=== PATIENT | female | born 1940 | race Caucasian/White ===

== ENCOUNTER → 2016-11-06 | Outpatient (CLI) | payer BC ==
[~2016-11-06] MED LIST: ADVAIR; CALC-51; CMBIN; VITAMIN D; VITAMINS; ZOLOFT; [UNRECOGNIZED DRUG - OTHER]
[2016-11-06 11:10] LABS: BLOOD UREA NITROGEN 17 mg/dl (7-18); BUN/CREATININE RATIO 21.4 (10-20); CALCIUM 8.6 mg/dl (8.5-10.1); CARBON DIOXIDE 26 mmol/L (21-32); CHLORIDE 107 mmol/L (98-107); CHOLESTEROL 261 mg/dl (0-200); GLUCOSE 93 mg/dl (70-99); POTASSIUM 4.2 mmol/L (3.5-5.1); SODIUM 142 mmol/L (136-145); TRIGLYCERIDES 79 mg/dl (0-150); VERY LOW DENSITY LIPOPROT CALC 16 mg/dl
[2016-11-06 11:14] LABS: ALB/GLOB RATIO 1.1 (0.9-2); ALKALINE PHOSPHATASE 40 U/L (45-117); ALT/SGPT 22 U/L (12-78); AST/SGOT 16 U/L (15-37); CHOLESTEROL/HDL RATIO 2.5; HDL CHOLESTEROL 105 mg/dl; LDL CHOLESTEROL CALCULATED 140 mg/dl
== END | disposition home or self-care (01) ==
LOC: C.LABBC 08:29
PROVIDERS: ATTEND Internal Medicine
DX: E78.5 Hyperlipidemia, unspecified (principal)

== ENCOUNTER → 2017-03-26 | Outpatient (CLI) | payer BC ==
[2017-03-26 13:19] LABS: ALT/SGPT 19 U/L (12-78); BLOOD UREA NITROGEN 13 mg/dl (7-18); BUN/CREATININE RATIO 17.1 (10-20); CALCIUM 8.9 mg/dl (8.5-10.1); CARBON DIOXIDE 25 mmol/L (21-32); CHLORIDE 107 mmol/L (98-107); CHOLESTEROL 285 mg/dl (0-200); CREATININE 0.76 mg/dl (0.60-1.20); GLUCOSE 92 mg/dl (70-99); POTASSIUM 4.2 mmol/L (3.5-5.1); SODIUM 139 mmol/L (136-145); TRIGLYCERIDES 104 mg/dl (0-150); VERY LOW DENSITY LIPOPROT CALC 21 mg/dl
[2017-03-26 13:23] LABS: ALB/GLOB RATIO 1.1 (0.9-2); ALKALINE PHOSPHATASE 43 U/L (45-117); AST/SGOT 14 U/L (15-37); CHOLESTEROL/HDL RATIO 3.3; HDL CHOLESTEROL 86 mg/dl; LDL CHOLESTEROL CALCULATED 178 mg/dl
== END | disposition home or self-care (01) ==
LOC: C.LAB1850 11:19
PROVIDERS: ATTEND Internal Medicine
DX: E78.5 Hyperlipidemia, unspecified (principal); M81.0 Age-related osteoporosis without current pathological fracture

== ENCOUNTER → 2017-06-07 | Outpatient (CLI) | payer BC ==
--- NOTE | 2017-06-07 14:20 | MAMMOGRAPHY REPORT ---
BILATERAL DIGITAL SCREENING MAMMOGRAM WITH CAD: 06/07/2017 CLINICAL HISTORY: Routine screening. Patient has no complaints. TECHNIQUE: Current study was also evaluated with a Computer Aided Detection (CAD) system. Bilateral CC and MLO views were obtained. COMPARISON: Comparison is made to exams dated: 06/05/2016 mammogram, 06/01/2015 mammogram, 05/29/2014 [place] mogram, 03/17/2013 mammogram, 03/12/2012 mammogram, and 03/02/2011 mammogram - [facility] er. BREAST COMPOSITION: The tissue of both breasts is almost entirely fatty. FINDINGS: No suspicious masses, calcifications, or areas of architectural distortion are noted in ei ther breast. There has been no significant interval change compared to prior exams. IMPRESSION: ACR BI-RADS CATEGORY 1: NEGATIVE There is no mammographic evidence of malignancy. A 1 year screening mammogram is recommended. The pa tient will receive written notification of the results. Approximately 10% of breast cancers are not detected with mammography. A negative mammographic report should not delay biopsy if a clinically suggestive mass is present. Tammy Nguyen M.D. ah/:06/07/2017 12:08:14 Loader Machine: Lindy WARD,R, M, [facility] letter sent: Normal 1/2 BI-RADS Code: ACR BI-RADS Category 1: Negative
== END | disposition home or self-care (01) ==
LOC: C.MAMM 10:16
PROVIDERS: ATTEND Obstetrics & Gynecology
DX: Z12.31 Encounter for screening mammogram for malignant neoplasm of breast (principal)

== ENCOUNTER → 2017-10-04 | Outpatient (CLI) | payer BC ==
--- NOTE | 2017-10-04 11:25 | DIAGNOSTIC IMAGING REPORT ---
KUB CLINICAL HISTORY: R63.4 Abnormal weight lossR14.0 Abdominal [id number] COMPARISON STUDY: 2005 FINDINGS: There are moderate degenerative changes present within the lumbar spine. There is mild gaseous prominence of the transverse colon and splenic flexure. Granular opaque densities within the abdomen likely representing enteric contents. There are few nonspecific pelvic basin calcifications. There is moderate stool within the right colon. IMPRESSION: No conventional radiographic evidence of significant bowel obstruction. Electronically signed by: Hugo Church M.D. 10/04/2017 11:23 AM Dictated Date/Time: 10/04/2017 11:22 AM
[2017-10-04 12:20] LABS: BASO % 0.8 %; BASO ABS # 0.07 K/uL (0-0.2); EOS % 1.5 %; EOS ABS # 0.13 K/uL (0-0.5); HEMATOCRIT 43.3 % (37-47); HEMOGLOBIN 14.5 g/dL (12.0-16.0); IG# 0.01 K/uL (0.00-0.02); LYMPH % 29.4 %; LYMPH ABS # 2.47 K/uL (1.2-3.4); MEAN CELL VOLUME 93.9 fL (80-100); MEAN CORPUSCULAR HEMOGLOBIN 31.5 pg (25-34); MEAN CORPUSCULAR HGB CONC 33.5 g/dl (32-36); MEAN PLATELET VOLUME 9.9 fL (7.4-10.4); MONO % 10.4 %; MONO ABS # 0.87 K/uL (0.11-0.59); NEUT % 57.8 %; NEUT ABS # 4.85 K/uL (1.4-6.5); PLATELET COUNT 281 K/uL (130-400); RED CELL DISTRIBUTION WIDTH CV 14.6 % (11.5-14.5); RED CELL DISTRIBUTION WIDTH SD 49.6 fL (36.4-46.3)
[2017-10-04 12:46] LABS: ALBUMIN 3.5 gm/dl (3.4-5.0); ALT/SGPT 22 U/L (12-78); AST/SGOT 16 U/L (15-37); BLOOD UREA NITROGEN 14 mg/dl (7-18); CARBON DIOXIDE 30 mmol/L (21-32); CREATININE 0.78 mg/dl (0.60-1.20); GLUCOSE 94 mg/dl (70-99); POTASSIUM 3.7 mmol/L (3.5-5.1); SODIUM 141 mmol/L (136-145)
[2017-10-04 12:48] LABS: ALKALINE PHOSPHATASE 47 U/L (45-117); CHOLESTEROL 229 mg/dl (0-200); LDL CHOLESTEROL CALCULATED 113 mg/dl; TOTAL PROTEIN 6.7 gm/dl (6.4-8.2)
== END | disposition home or self-care (01) ==
LOC: C.RAD1850 10:44
PROVIDERS: ATTEND Internal Medicine
DX: R63.4 Abnormal weight loss (principal); R14.0 Abdominal distension (gaseous); E78.5 Hyperlipidemia, unspecified; M81.0 Age-related osteoporosis without current pathological fracture

== ENCOUNTER → 2017-10-11 | Outpatient (CLI) | payer BC ==
--- NOTE | 2017-10-11 14:08 | DIAGNOSTIC IMAGING REPORT ---
ABD/PELVIS IV AND ORAL CONT CT DOSE: 417.97 mGycm HISTORY: Pain. Nausea. ABN WEIGHT LOSS,CHANGE IN BOWEL HABITS TECHNIQUE: Multiaxial CT images of the abdomen and pelvis were performed following the use of intravenous and oral contrast. A dose lowering technique was utilized adhering to the principles of ALARA. COMPARISON STUDY: 03/17/2006 FINDINGS: Lung bases are clear. Liver is uniform throughout. There is an 8 mm hypodense nodule and/or cyst peripheral aspect right hepatic lobe. This is unchanged in the prior study and statistically suggestive small cyst. Gallbladder is negative for distention. There is hyperdense nodule involving the third portion of duodenal sweep and potentially represents a diverticulum. This measures 1.5 cm and is similar compared to the prior study. Kidneys negative for mass or hydronephrosis. Bowel pattern is remarkable for increased colonic material within the a sending and proximal to mid transverse colon. At the mid transverse colon there is a small ventral hernia containing a short segment loop of colon. This does not appear to be obstructing although fecal load distal to this level is slightly diminished. There is a small fat containing additional midline anterior abdominal wall hernia slightly superior to the umbilicus. This contains fat exclusively and is nonobstructing. The left-sided ostomy on the prior study is no longer present. Bladder is midline. There is no significant free fluid within the pelvic cul-de-sac. Small bowel pattern is nonobstructive. IMPRESSION: 1. Small ventral hernia immediately superior to the umbilicus containing fat exclusively. 2. Ventral hernia inferior to the umbilicus containing containing a short segment loop of colon. This is non and are only minimally obstructing with increased fecal load proximal to this site. 3. Remainder of the study is unremarkable. The above report was generated using voice recognition software. It may contain grammatical, syntax or spelling errors. Electronically signed by: Senthil Muñoz M.D. 10/11/2017 2:06 PM Dictated Date/Time: 10/11/2017 1:55 PM
== END | disposition home or self-care (01) ==
LOC: C.CTS 13:33
PROVIDERS: ATTEND Physician Assistant
DX: R63.4 Abnormal weight loss (principal); R19.4 Change in bowel habit

== ENCOUNTER 2017-12-13 10:44 | Observation (INO) | payer BC ==
--- NOTE | 2017-11-22 11:39 | PAT Medication Instructions ---
Service Date Nov 22, 2017. Current Home Medication List Albuterol Sulfate (Proair Respiclick), 1-2 PUFFS INH Q4-6H Atorvastatin (Lipitor), 5 MG PO HS Calcium Carbonate-Vitamin D (Calcium + D), 1 TAB PO QAM Cyanocobalamin (Vitamin B12 100 Mcg), 100 MCG PO QAM Fluticasone Prop/Salmeterol (Advair Diskus 500-50 Mcg/Dose), 1 PUFF INH Q12H Ibandronate Sodium (Boniva), 150 MG PO MONTHLY Multivitamin (Multivitamin), 1 TAB PO QAM Holloway-3 Fatty Acids (Fish Oil), 2 TAB PO QAM Ranitidine (Zantac), 150 MG PO HS Sertraline (Zoloft), 150 MG PO QAM Medication Instructions For Your Scheduled Surgery -Continue as directed: Ibandronate Sodium (Boniva), 150 MG PO MONTHLY - Hold the following medications 2 weeks prior to surgery: Holloway-3 Fatty Acids (Fish Oil), 2 TAB PO QAM - Hold the following medications the morning of surgery: Calcium Carbonate-Vitamin D (Calcium + D), 1 TAB PO QAM Cyanocobalamin (Vitamin B12 100 Mcg), 100 MCG PO QAM Multivitamin (Multivitamin), 1 TAB PO QAM - Take the following medications the morning of surgery with a sip of water: Albuterol Sulfate (Proair Respiclick), 1-2 PUFFS INH Q4-6H (if needed, bring it with you to the hospital) Fluticasone Prop/Salmeterol (Advair Diskus 500-50 Mcg/Dose), 1 PUFF INH Q12H Sertraline (Zoloft), 150 MG PO QAM - Take the following medications as scheduled the night before surgery: Albuterol Sulfate (Proair Respiclick), 1-2 PUFFS INH Q4-6H (if needed) Atorvastatin (Lipitor), 5 MG PO HS Fluticasone Prop/Salmeterol (Advair Diskus 500-50 Mcg/Dose), 1 PUFF INH Q12H Ranitidine (Zantac), 150 MG PO HS If you have any questions please call us at [phone] or [phone] or [phone]
[2017-11-22 13:23] LABS: BASO % 1.1 %; BASO ABS # 0.08 K/uL (0-0.2); EOS % 2.7 %; HEMATOCRIT 42.2 % (37-47); HEMOGLOBIN 14.4 g/dL (12.0-16.0); IG# 0.02 K/uL (0.00-0.02); LYMPH % 28.4 %; LYMPH ABS # 2.13 K/uL (1.2-3.4); MEAN CELL VOLUME 93.4 fL (80-100); MEAN CORPUSCULAR HEMOGLOBIN 31.9 pg (25-34); MEAN CORPUSCULAR HGB CONC 34.1 g/dl (32-36); MEAN PLATELET VOLUME 9.5 fL (7.4-10.4); MONO % 12.3 %; MONO ABS # 0.92 K/uL (0.11-0.59); NEUT % 55.2 %; NEUT ABS # 4.16 K/uL (1.4-6.5); PLATELET COUNT 274 K/uL (130-400); RED CELL DISTRIBUTION WIDTH CV 14.3 % (11.5-14.5); RED CELL DISTRIBUTION WIDTH SD 49.1 fL (36.4-46.3); WHITE BLOOD COUNT 7.51 K/uL (4.8-10.8)
[2017-11-22 13:35] LABS: CREATININE 0.71 mg/dl (0.60-1.20); POTASSIUM 4.1 mmol/L (3.5-5.1)
[~2017-12-13] VITALS: Ht 152.4 cm; Wt 56.1 kg
[2017-12-13] VITALS (7 sets, daily range): BP systolic 114–141; BP diastolic 64–73; PULSE 57–78; TEMP 36.4–36.8; O2SAT 91–97; Ht 152.4 cm; Wt 56.1 kg
[2017-12-13] MEDS: LACTATED RINGER'S 1000ML 1,000 ML IV SCH (03:04)
[~2017-12-13 10:44] MED LIST changes: -ADVAIR; +ADVIN50050 INH; +ALBU18002 INH; +ATOR10TA82 PO; +ATROPINE SULFATE 0.1 MG/ML 5ML SYR IV PRN; -CALC-51; +CALC600T9 PO; +CEFAZOLIN 2000MG IV PUSH 15 ML IV SCH; -CMBIN; +CYAN100T6 PO; +EpHEDrine SULFATE INJ 50 MG/ML AMP IV PRN; +FENTANYL CITRATE INJ 50 MCG/1 ML 2 ML VIAL IV PRN; +HYDROmorphone INJ 1 MG/ML SYR IV PRN; +IBAN150T PO; +LACTATED RINGER'S 1000ML 1,000 ML IV SCH; +MULT-506 PO; +OMEGCAP2 PO; +ONDANSETRON INJ 2 MG/ML 2 ML VIAL IV PRN; +PHENYLEPHRINE 100MCG/ML 5ML SYR IV PRN; +RANI150T85 PO; +SERT-234 PO; -VITAMIN D; -VITAMINS; -ZOLOFT; -[UNRECOGNIZED DRUG - OTHER]
[2017-12-13] MEDS ORDERED: DEXAMETHASONE SOD INJ 4 MG/ML VIAL ONE (11:03)
[2017-12-13] MEDS ORDERED: LIDOCAINE HCL 2% 2 ML VIAL (20MG/ML) ONE (11:03)
[2017-12-13] MEDS ORDERED: FENTANYL CITRATE INJ 50 MCG/1 ML 2 ML VIAL ONE ×3 (11:03→14:06)
[2017-12-13] MEDS ORDERED: ONDANSETRON INJ 2 MG/ML 2 ML VIAL ONE (11:03)
[2017-12-13] MEDS ORDERED: PROPOFOL IV EMULSION 10 MG/ML 20 ML VIAL IV ONE (11:03)
--- NOTE | 2017-12-13 11:51 | History & Physical Bridge Note ---
H&P Re-Evaluation Bridge Note: I have examined the patient, reviewed the History & Physical and in the interval since the performance of the History & Physical I have noted the following changes of clinical significance: No changes noted
[2017-12-13] MEDS ORDERED: BUPIVACAINE/EPINEPHRINE 0.5% MPF 1:200,000 30 ML VIAL ONE (12:11)
[2017-12-13] MEDS ORDERED: SUCCINYLCHOLINE 100MG/5ML SYR IV ONE (12:44)
[2017-12-13] MEDS ORDERED: ROCURONIUM BROMIDE 10 MG/ML 5 ML VIAL IV ONE (12:44)
[2017-12-13] MEDS ORDERED: GLYCOPYRROLATE INJ 0.2 MG/ML VIAL ONE (12:52)
[2017-12-13] MEDS ORDERED: NEOSTIGMINE METHYLSULFATE 5 MG/5 ML SYR ONE (12:52)
[2017-12-13] MEDS ORDERED: EpHEDrine SULFATE INJ 50 MG/ML AMP ONE (13:28)
[2017-12-13] MEDS ORDERED: ARISTA ABSORBABLE HEMOSTAT 3GM TOP ONE (13:49)
--- NOTE | 2017-12-13 13:52 | [facility] Post Operative Brief Note ---
Immediate Operative Summary Operative Date Dec 13, 2017. Pre-Operative Diagnosis Ventral hernias Post-Operative Diagnosis Same as preop ( times 3) plus adhesions to small bowel Procedure(s) Performed Open Incisional Hernia Repair x3 with Mesh, enterolysis Surgeon Dr. Scruggs Mediation Commissioner Surgeon(s) Melinda Armstrong PA-C Estimated Blood Loss 20 cc Findings Consistent with Post-Op Diagnosis Specimens none, as per surgeon Anesthesia Type General
[2017-12-13] MEDS ORDERED: ALBUTEROL HFA 8 GM INHALER INH PRN (14:00)
[2017-12-13] MEDS ORDERED: MoRPHine SULFATE 2 MG/ML CARP IV PRN (14:00)
[2017-12-13] MEDS ORDERED: HYDR-5688 PO (14:05)
[2017-12-13] MEDS ORDERED: HYDROmorphone INJ 1 MG/ML SYR ONE ×2 (14:06→14:45)
--- NOTE | 2017-12-13 14:06 | Discharge Instructions ---
Discharge Instructions Date of Service Dec 13, 2017. Admission Reason for Admission: Incisional Hernia Discharge Discharge Diagnosis / Problem: hernia repair Discharge Goals Goal(s): Decrease discomfort Activity Recommendations Activity Limitations: as noted below Lifting Limitations: no more than 10 pounds Driving or Machine Use: resume 3 days after discharge . Instructions / Follow-Up Instructions / Follow-Up Dr. Scruggs in 1-2 weeks as planned, call [phone] if you have any questions Current Hospital Diet Patient's current hospital diet: Clear Liquid Diet Discharge Diet Recommended Diet: Regular Diet Procedures Procedures Performed: Open Incisional Hernia Repair x3 with Mesh, enterolysis Pending Studies Studies pending at discharge: no Laboratory Results Lipid Panel Test 10/04/17 11:00 Range/Units Triglycerides Level 108 0-150 mg/dl Cholesterol Level 229 H 0-200 mg/dl HDL Cholesterol 94 mg/dl Cholesterol/HDL Ratio 2.4 LDL Cholesterol, Calculated 113 mg/dl Medical Emergencies . Who to Call and When: Medical Emergencies: If at any time you feel your situation is an emergency, please call 911 immediately. . Non-Emergent Contact Non-Emergency issues call your: Surgeon Call Non-Emergent contact if: you have a fever, temperature is above 101.5, your pain is not controlled, wound has increased redness, you have any medication questions . "Provider Documentation" section prepared by Merritt Michael. .
--- NOTE | 2017-12-13 14:10 | [facility] Operative Report ---
Operative Report Operative Date Dec 13, 2017. Pre-Operative Diagnosis Ventral hernias Post-Operative Diagnosis Same as preop ( times 3) plus adhesions to small bowel Procedure(s) Performed Open Incisional Hernia Repair x3 with Mesh, enterolysis Surgeon Dr. Scruggs Creel Hand Surgeon(s) Melinda Armstrong PA-C Estimated Blood Loss 20 cc Specimens none, as per surgeon Anesthesia Type General Description of Procedure After informed consent was obtained the patient was taken to the operating room and placed in a supine position. After successful placement of the laryngeal mask airway the abdomen was sterilely prepped and draped in usual fashion. The patient had 2 known hernias one supra-umbilical and one infraumbilical. We began with the supraumbilical hernia. We made an incision through her prior midline with a 15 blade scalpel and carried this down through the soft tissue using electrocautery. We immediately encountered a hernia sac which we excised. This exposed a several centimeter hernia defect with some omental incarceration. We grabbed the edges of the fashion elevated them and took down in the underlying adhesions using sharp scissor lysis and small amounts of electrocautery. There was an additional hernia between this hernia and the umbilicus. We decided to connect these 2 hernias by dividing the fascial bridge. We then skeletonized the fascial edges in 360. We then used a #1 Ethibond in interrupted [id number] fashion to primarily close the defect. We did not have to do a component separation as there was plenty of laxity in the abdominal wall. Once we had it primarily closed we then used a piece of pro -oral and maxillofacial surgery resident mesh as an onlay. It overlapped the defect and several centimeters in all directions. We secured it to underlying fascia using 0 Ethibond in simple interrupted fashion. The wound was then thoroughly irrigated. Any small bleeding points were controlled using electrocautery. We then used Kassandra powder on all the raw surfaces to help prevent seroma and hematoma formation. We then closed the defect in multiple layers using 2-0 Vicryl for the deep layers 3-0 Vicryl for mid layers and 4-0 Monocryl for the skin. Sterile OpSite dressing was applied. We used a very similar technique for the infraumbilical hernia. We made an incision through her old scar line and carried down through the soft tissue using electrocautery. This was a smaller defect however there was a knuckle of small bowel sticking through into the soft tissue. We able to free this up using traction countertraction and scissor lysis. Eventually we were able to reduce the small bowel back down into the abdominal cavity. Again we primarily closed the defect after skeletonizing it. We closed it with #1 Ethibond in simple interrupted fashion. Again we used Progrip as an onlay using 0 Ethibond to secure it to underlying fascia. We irrigated and used Kassandra powder followed by 2-0 Vicryl closure 3-0 Vicryl closure and 4-0 Monocryl for the subcuticular closure. Sterile OpSite dressing was applied. The patient was then extubated and transferred to recovery in stable condition. My physician's promotions assistant was present through the entire case. He helped with prepping the patient retraction throughout the case for exposure as well as wound closure and dressing placement at the end of the case. I attest to the content of the Intraoperative Record and any orders documented therein. Any exceptions are noted below.
--- NOTE | 2017-12-13 14:45 | Anesthesiology Progress Note ---
Anesthesia Post Op Note Date & Time Dec 13, 2017 at 14:44 Vital Signs Pain Intensity: 4.0 Vital Signs Past 12 Hours Date Time Temp Pulse Resp B/P (MAP) Pulse Ox O2 Delivery O2 Flow Rate FiO2 12/13/17 14:00 36.4 75 16 164/83 97 Oxymask 3 12/13/17 11:20 36.8 57 20 141/73 (95) 97 Room Air Notes Mental Status: alert / awake / arousable, participated in evaluation Pt Amnestic to Procedure: Yes Nausea / Vomiting: adequately controlled Pain: adequately controlled Airway Patency, RR, SpO2: stable & adequate BP & HR: stable & adequate Hydration State: stable & adequate Anesthetic Complications: no major complications apparent
[2017-12-13] MEDS: MoRPHine SULFATE 4 MG/ML 1 ML CARP\\VIAL IV PRN ×2 (15:46→22:30)
[2017-12-13] MEDS ORDERED: IV FLUIDS COMPLETED PRN (17:00)
[2017-12-13] MEDS ORDERED: VNTHFA/IN INH (18:43)
[2017-12-13] MEDS: HYDROCODONE/ACETAMIN 5/325MG TAB PO PRN (20:43)
[2017-12-13] MEDS: RANITIDINE HCL 150 MG TAB PO SCH (20:45)
[2017-12-13] MEDS: FLUTICASONE/SALMETEROL (ADVAIR) 500/50 INH 14 PUFF INH SCH (20:46)
[2017-12-13] MEDS: ATORVASTATIN 10 MG TAB PO SCH (20:46)
[2017-12-14] MEDS: HYDROCODONE/ACETAMIN 5/325MG TAB PO PRN (02:20)
[2017-12-14] MEDS: MoRPHine SULFATE 4 MG/ML 1 ML CARP\\VIAL IV PRN (03:54)
[2017-12-14 03:56] VITALS: BP 157/81; PULSE 93; TEMP 37; O2SAT 93
--- NOTE | 2017-12-14 07:26 | Surgery Progress Note ---
Surgery Progress Note Date of Service Dec 14, 2017. Subjective Post OP Day: 1 + pain controlled (better today), + nausea (this AM) Objective Vital Signs: Date Time Temp Pulse Resp B/P (MAP) Pulse Ox O2 Delivery O2 Flow Rate FiO2 12/14/17 03:56 37.0 93 16 157/81 (106) 93 Room Air 12/14/17 00:30 Room Air 12/13/17 23:16 36.8 76 18 116/68 (84) 91 Room Air 12/13/17 18:45 36.7 75 18 137/64 (88) 94 Nasal Cannula 2.0 12/13/17 17:50 36.7 78 18 114/65 (81) 95 Nasal Cannula 3.0 12/13/17 16:52 36.4 70 18 114/66 (82) 95 Nasal Cannula 3.0 12/13/17 16:19 36.6 78 18 126/72 (90) 91 Nasal Cannula 3.0 12/13/17 15:40 Nasal Cannula 2.0 12/13/17 15:40 36.7 76 16 115/64 (81) 97 Nasal Cannula 3.0 12/13/17 15:40 Nasal Cannula 2.0 12/13/17 15:16 121/63 12/13/17 15:15 75 18 95 12/13/17 15:15 73 18 12/13/17 15:11 119/64 12/13/17 15:10 73 18 12/13/17 15:10 73 18 98 12/13/17 15:06 119/71 12/13/17 15:05 71 21 96 12/13/17 15:05 72 21 12/13/17 15:01 126/66 12/13/17 15:00 73 22 12/13/17 15:00 73 22 98 12/13/17 14:56 115/67 12/13/17 14:55 73 14 12/13/17 14:55 73 14 98 12/13/17 14:51 127/66 12/13/17 14:50 68 10 12/13/17 14:50 68 10 97 12/13/17 14:49 36.5 12/13/17 14:46 131/68 12/13/17 14:45 71 25 12/13/17 14:45 71 25 97 12/13/17 14:41 132/69 12/13/17 14:40 71 18 12/13/17 14:40 71 18 98 12/13/17 14:36 138/71 12/13/17 14:35 74 14 97 12/13/17 14:35 74 14 12/13/17 14:31 116/45 12/13/17 14:30 77 12 12/13/17 14:30 76 12 98 12/13/17 14:26 138/72 12/13/17 14:25 78 22 99 12/13/17 14:25 77 22 12/13/17 14:21 133/69 12/13/17 14:20 78 14 97 12/13/17 14:20 75 14 12/13/17 14:16 129/69 12/13/17 14:15 79 10 97 12/13/17 14:15 79 10 12/13/17 14:11 147/73 12/13/17 14:10 81 10 12/13/17 14:10 81 10 98 12/13/17 14:06 131/53 12/13/17 14:05 73 17 98 12/13/17 14:05 73 17 12/13/17 14:04 139/53 12/13/17 14:00 36.4 75 16 164/83 97 Oxymask 3 12/13/17 11:20 36.8 57 20 141/73 (95) 97 Room Air Abdomen: soft Incision(s): dry (dressing) Laboratory Results: Results Past 24 Hours Test 12/13/17 11:10 Range/Units Bedside Glucose 89 70-90 mg/dl Microbiology Results 12/13/17 MRSA DNA Surveillance Screen - Final, Complete Specimen Negative for MRSA by DNA Probe Assessment & Plan s/p repair multiple incisional hernias increase diet & activity home when tolerating po continue binder
[2017-12-14 07:35] VITALS: BP 130/77; PULSE 80; TEMP 36.7; O2SAT 95
[2017-12-14] MEDS: LACTATED RINGER'S 1000ML 1,000 ML IV SCH (09:16)
[2017-12-14] MEDS: FLUTICASONE/SALMETEROL (ADVAIR) 500/50 INH 14 PUFF INH SCH ×2 (09:17→21:34)
[2017-12-14] MEDS: CYANOCOBALAMIN 100 MCG TAB (VIT B-12) PO SCH (09:18)
[2017-12-14] MEDS: MULTIVITAMIN TAB PO SCH (09:18)
[2017-12-14] MEDS: SERTRALINE HCL 50 MG TAB PO SCH (09:18)
[2017-12-14] MEDS: ONDANSETRON INJ 2 MG/ML 2 ML VIAL IV PRN (09:46)
[2017-12-14 11:22] VITALS: BP 126/77; PULSE 65; TEMP 36.8; O2SAT 93
[2017-12-14] MEDS ORDERED: NURSING VERBAL MED ORDER ONE (13:45)
[2017-12-14] MEDS ORDERED: OXYCODONE/ACETAMINOPHEN 5-325 TAB ONE (13:47)
[2017-12-14 15:05] VITALS: BP 155/77; PULSE 65; TEMP 37.3; O2SAT 88
[2017-12-14 15:48] VITALS: O2SAT 94
[2017-12-14] MEDS: OXYCODONE/ACETAMINOPHEN 5-325 TAB PO PRN (18:08)
[2017-12-14] MEDS: RANITIDINE HCL 150 MG TAB PO SCH (21:33)
[2017-12-14] MEDS: ATORVASTATIN 10 MG TAB PO SCH (21:34)
[2017-12-14 23:23] VITALS: BP 161/79; PULSE 80; TEMP 37; O2SAT 92
[2017-12-15] MEDS: OXYCODONE/ACETAMINOPHEN 5-325 TAB PO PRN ×2 (00:05→09:54)
[2017-12-15] MEDS: ONDANSETRON INJ 2 MG/ML 2 ML VIAL IV PRN (00:15)
[2017-12-15] MEDS: LACTATED RINGER'S 1000ML 1,000 ML IV SCH (03:16)
[2017-12-15 03:18] VITALS: BP 151/82; PULSE 86
[2017-12-15] MEDS ORDERED: NURSING DECISION MEDICATION ORDER SCH (05:00)
[2017-12-15 06:51] VITALS: BP 152/93; PULSE 86; TEMP 36.8; O2SAT 91
[2017-12-15] MEDS: FLUTICASONE/SALMETEROL (ADVAIR) 500/50 INH 14 PUFF INH SCH (08:43)
[2017-12-15] MEDS: SERTRALINE HCL 50 MG TAB PO SCH (08:44)
[2017-12-15] MEDS: CYANOCOBALAMIN 100 MCG TAB (VIT B-12) PO SCH (08:44)
[2017-12-15] MEDS: MULTIVITAMIN TAB PO SCH (08:44)
--- NOTE | 2017-12-15 09:11 | Surgery Progress Note ---
Surgery Progress Note Date of Service Dec 15, 2017. Subjective Post OP Day: 2 + feeling well, + flatus, + diet, No complaints, No bowel movement, No nausea, No vomiting Objective Vital Signs: Date Time Temp Pulse Resp B/P (MAP) Pulse Ox O2 Delivery O2 Flow Rate FiO2 12/15/17 07:45 Room Air 12/15/17 03:18 86 151/82 (105) 12/14/17 23:55 Nasal Cannula 2.0 12/14/17 23:23 37.0 80 18 161/79 (106) 92 Nasal Cannula 2.0 12/14/17 16:05 Nasal Cannula 2.0 12/14/17 15:48 94 Nasal Cannula 2.0 12/14/17 15:05 37.3 65 16 155/77 (103) 88 Room Air 12/14/17 11:22 36.8 65 16 126/77 (93) 93 Room Air General Appearance: WD/WN, no apparent distress Head: normocephalic, atraumatic Neck: supple Respiratory/Chest: lungs clear Cardiovascular: regular rate, rhythm Abdomen: soft, + distended, + tenderness (mild) Incision(s): clean, dry, intact Extremities: non-tender, no pedal edema Assessment & Plan POD #2 incisional hernia repair -doing well -discharge
[2017-12-15 12:15] VITALS: BP 152/93; PULSE 86; TEMP 36.8; O2SAT 91
--- NOTE | 2017-12-19 10:19 | DISCHARGE SUMMARY ---
PRIMARY DISCHARGE DIAGNOSIS: Multiple incisional hernias. SECONDARY DISCHARGE DIAGNOSES: 1. Chronic obstructive pulmonary disease. 2. Depression. 3. Hiatal hernia with gastroesophageal reflux disease. 4. Osteoporosis. PROCEDURE PERFORMED: Open incisional hernia repair x3 with mesh and enterolysis. HOSPITAL COURSE: The patient is a 77-year-old female with a history of Sabina's procedure, now with multiple incisional hernias. Three defects were encountered, 2 at the upper pole of the incision and a smaller defect at the lower pole, which were repaired through 2 different incisions. The procedure was well tolerated. She was transferred to the surgical floor for observation. She was having some nausea on postoperative day 1. Her activity was also limited. By postoperative day 2, her nausea had resolved. She was tolerating diet, passing flatus. She was increasing activity. She was stable for discharge. DISCHARGE INSTRUCTIONS: Discharge home. Follow up with Dr. Scruggs in approximately 2 weeks. Continue to use abdominal binder at home. DISCHARGE MEDICATIONS: [place] 1-2 tablets every 4 hours as needed. Continue home medications, Ventolin HFA 1-2 puffs as needed, Lipitor 5 mg daily, calcium and vitamin D supplement, vitamin B12 100 mcg daily, Advair Diskus 1 puff b.i.d., Boniva 150 mg monthly, daily multivitamin, fish oil supplement, Zantac 150 mg daily, and Zoloft 150 mg daily.
== END 2017-12-15 13:26 | disposition home or self-care (01) ==
LOC: C.ACU 10:44 → C.3E 12:13 → EDBEDREQ 14:15 → ENRESERV 15:08
PROVIDERS: ADMIT Surgery; ATTEND Surgery
DX: K43.2 Incisional hernia without obstruction or gangrene (principal); J44.9 Chronic obstructive pulmonary disease, unspecified; F32.9 Major depressive disorder, single episode, unspecified; K44.9 Diaphragmatic hernia without obstruction or gangrene; K21.9 Gastro-esophageal reflux disease without esophagitis; M81.0 Age-related osteoporosis without current pathological fracture; I44.7 Left bundle-branch block, unspecified; E78.5 Hyperlipidemia, unspecified; Z88.8 Allergy status to other drugs, medicaments and biological substances; Z87.891 Personal history of nicotine dependence; Z87.440 Personal history of urinary (tract) infections; Z86.14 Personal history of Methicillin resistant Staphylococcus aureus infection; Z90.49 Acquired absence of other specified parts of digestive tract; Z82.49 Family history of ischemic heart disease and other diseases of the circulatory system; Z83.3 Family history of diabetes mellitus; Z80.3 Family history of malignant neoplasm of breast

== ENCOUNTER 2017-12-18 12:12 | Inpatient (IN) | payer BC, OTHER ==
[~2017-12-18] VITALS: Ht 162.6 cm; Wt 56.6 kg
[~2017-12-18 12:12] MED LIST changes: -ALBU18002 INH; -ATROPINE SULFATE 0.1 MG/ML 5ML SYR IV PRN; -CEFAZOLIN 2000MG IV PUSH 15 ML IV SCH; -EpHEDrine SULFATE INJ 50 MG/ML AMP IV PRN; -FENTANYL CITRATE INJ 50 MCG/1 ML 2 ML VIAL IV PRN; +HYDR-5688 PO; -HYDROmorphone INJ 1 MG/ML SYR IV PRN; -LACTATED RINGER'S 1000ML 1,000 ML IV SCH; -ONDANSETRON INJ 2 MG/ML 2 ML VIAL IV PRN; -PHENYLEPHRINE 100MCG/ML 5ML SYR IV PRN; +VNTHFA/IN INH
[2017-12-18] MEDS ORDERED: ONDANSETRON INJ 2 MG/ML 2 ML VIAL IV STA (13:11)
[2017-12-18] MEDS ORDERED: SODIUM CHLORIDE 0.9% 1000ML 1,000 ML IV STA ×2 (13:11→14:25)
[2017-12-18 14:32] LABS: BASO % 0.3 %; BASO ABS # 0.03 K/uL (0-0.2); EOS % 0.5 %; EOS ABS # 0.05 K/uL (0-0.5); HEMATOCRIT 42.3 % (37-47); HEMOGLOBIN 14.7 g/dL (12.0-16.0); IG# 0.03 K/uL (0.00-0.02); LYMPH % 13.3 %; LYMPH ABS # 1.42 K/uL (1.2-3.4); MEAN CELL VOLUME 91.6 fL (80-100); MEAN CORPUSCULAR HEMOGLOBIN 31.8 pg (25-34); MEAN CORPUSCULAR HGB CONC 34.8 g/dl (32-36); MEAN PLATELET VOLUME 9.4 fL (7.4-10.4); MONO % 10.8 %; MONO ABS # 1.16 K/uL (0.11-0.59); NEUT % 74.8 %; NEUT ABS # 8.01 K/uL (1.4-6.5); PLATELET COUNT 340 K/uL (130-400); RED CELL DISTRIBUTION WIDTH CV 13.3 % (11.5-14.5); RED CELL DISTRIBUTION WIDTH SD 44.4 fL (36.4-46.3)
[2017-12-18] MEDS ORDERED: HydrALAZINE HCL 20 MG/ML VIAL IV. STA ×2 (14:39→16:17)
[2017-12-18 14:49] LABS: ALBUMIN 2.8 gm/dl (3.4-5.0); CALCIUM 8.4 mg/dl (8.5-10.1); CREATININE 0.55 mg/dl (0.60-1.20); POTASSIUM 3.7 mmol/L (3.5-5.1)
[2017-12-18 15:00] LABS: TOTAL PROTEIN 6.6 gm/dl (6.4-8.2)
--- NOTE | 2017-12-18 15:03 | DIAGNOSTIC IMAGING REPORT ---
PA CHEST WITH ABDOMINAL SERIES CLINICAL HISTORY: Nausea and vomiting. FINDINGS: A PA chest radiograph is compared to study dated 07/31/2013. The cardiomediastinal silhouette is unremarkable. Emphysema and chronic interstitial thickening are similar to previous. No airspace consolidation or pleural effusion is identified. No pneumothorax is seen. The skeletal structures are osteopenic. The bony thorax is grossly intact. Supine and erect abdominal radiographs are correlated with abdominal CT dated 10/11/2017. There is mild gaseous distention of the small bowel. Small bowel is measure up to 3.9 cm in diameter.. No evidence of intraperitoneal free air is seen. Scattered air-fluid levels are seen on the upright view. There are no abnormal abdominal calcifications. Suture material and phleboliths are noted in the pelvis. The skeletal structures are osteopenic. Moderate lumbosacral spondylosis is observed. IMPRESSION: 1. Emphysema with no active disease in the chest. 2. There is mild gaseous distention of the small bowel loops. This could be seen in the setting of a nonspecific enteritis. Developing small bowel obstruction is not excluded. Clinical correlation will be essential. 3. No intraperitoneal free air is seen. Electronically signed by: Kalia Serrano M.D. 12/18/2017 3:02 PM Dictated Date/Time: 12/18/2017 2:54 PM
[2017-12-18] MEDS ORDERED: METOCLOPRAMIDE HCL INJ 5 MG/ML 2 ML VIAL IV. STA (15:22)
[2017-12-18] MEDS ORDERED: DiphenhydrAMINE HCL 50 MG/ML VIAL IV STA (15:22)
[2017-12-18] MEDS ORDERED: OPTIRAY 320 IV PRN (16:45)
--- NOTE | 2017-12-18 17:19 | DIAGNOSTIC IMAGING REPORT ---
ABD/PELVIS IV CONTRAST ONLY CT DOSE: 255.63 mGy.cm HISTORY: Postoperative pain abd pain, post op TECHNIQUE: Multiaxial CT images of the abdomen and pelvis were performed following the use of intravenous contrast. A dose lowering technique was utilized adhering to the principles of ALARA. COMPARISON STUDY: 10/11/2017 FINDINGS: Minimal bibasilar atelectasis. Small hiatal hernia. Liver enhances uniformly. Small peripheral hepatic cyst unchanged. The kidneys enhance uniformly. No evidence for hydronephrosis. Scattered pockets of free air within the abdomen and pelvis. Most likely on a postoperative basis. 2. Periumbilical ventral hernias are again noted. The hernia inferior to the umbilicus now contains a larger mildly distended loop of bowel. The Loop of bowel exiting the hernia is small caliber with the loop proximal considered distended. Moderate wall edema of the loop within the hernia. The small hernia superior to the umbilicus no longer contains a bowel loop. There is moderate soft tissue edematous change within the subcutaneous fat. The abdominal bowel pattern shows colon to be relatively collapsed. The distal small bowel is also of small caliber. Postoperative suture line changes are identified in the left pelvic region potentially indicating a partial colonic resection. Mild infiltrative changes in the paracolic gutter regions bilaterally. Moderate free fluid is identified within the pelvic cul-de-sac. Bladder is midline. IMPRESSION: 1. Interval operative changes of the abdomen and pelvis with scattered pockets of free air presumably postoperative. 2. Findings consistent with mid to distal small bowel obstructive change. 3. This potentially relates to an increase in size of a ventral hernia inferior to the umbilicus now containing a moderately edematous loop of small bowel . 4. Small bowel proximal to this level is distended and partially fluid-filled. 5. Moderate free fluid within the pelvic cul-de-sac. No evidence for abscess or collection at this time. The above report was generated using voice recognition software. It may contain grammatical, syntax or spelling errors. Electronically signed by: Senthil Muñoz M.D. 12/18/2017 5:17 PM Dictated Date/Time: 12/18/2017 5:04 PM
--- NOTE | 2017-12-18 18:02 | EMERGENCY ROOM VISIT NOTE ---
History Report prepared by John: Taj Mckeon Under the Supervision of: Dr. Carina Rubin D.O. First contact with patient: 12:41 Chief Complaint: HYPERTENSION Stated Complaint: ILLNESS History of Present Illness The patient is a 77 year old female who presents to the Emergency Room with complaints of persistent generalized illness beginning a few days ago. Her symptoms include dizziness, chills, nausea, vomiting, "burning" chest pain, and confusion. She had a hernia repair surgery last week. She has not been able to eat, drink, or sleep since her surgery. The patient states that her dizziness and "fogginess" began today. She has been able to pass gas today. Her last normal bowel movement was 2 days ago. The patient denies fevers, or urinary symptoms. She has a history of GERD, and states that it has been worse than normal over the past few months. She states "it feels like food gets stuck, and then I throw up". The patient has had trouble taking her normal medications due to her vomiting. She began taking Zoloft again recently, but not the rest of her medications. Denies fevers, but admits to chills. Source of History: patient Onset: A few days ago Position: other (generalized) Quality: other (illness) Timing: other (persistent) Associated Symptoms: + chills, + chest pain ("burning"), + nausea, + vomiting, No diarrhea, No urinary symptoms Note: Positive: dizziness, and confusion. Review of Systems See HPI for pertinent positives & negatives. A total of 10 systems reviewed and were otherwise negative. Past Medical & Surgical Medical Problems: (1) Depression (2) Diverticulitis (3) Incisional hernia (4) Small bowel obstruction Family History No pertinent family history stated. Social History Smoking Status: Unknown if Ever Smoked Occupation Status: retired Current/Historical Medications Scheduled Atorvastatin (Lipitor), 5 MG PO HS Calcium Carbonate-Vitamin D (Calcium + D), 1 TAB PO QAM Cyanocobalamin (Vitamin B12 100 Mcg), 100 MCG PO QAM Fluticasone Prop/Salmeterol (Advair Diskus 500-50 Mcg/Dose), 1 PUFF INH Q12H Ibandronate Sodium (Boniva), 150 MG PO MONTHLY Multivitamin (Multivitamin), 1 TAB PO QAM [place]-3 Fatty Acids (Fish Oil), 2 TAB PO QAM Ranitidine (Zantac), 150 MG PO HS Sertraline (Zoloft), 150 MG PO QAM Scheduled PRN Albuterol Hfa (Ventolin Hfa), 1-2 PUFFS INH Q4H PRN for Shortness of Breath Allergies Coded Allergies: Alendronate (Verified Allergy, Unknown, WEAKNESS HANDS, 12/18/17) Physical Exam Vital Signs Date Time Temp Pulse Resp B/P (MAP) Pulse Ox O2 Delivery O2 Flow Rate FiO2 12/18/17 18:54 105 15 156/88 95 Room Air 12/18/17 16:28 99 12/18/17 16:21 193/93 12/18/17 16:07 96 25 97 12/18/17 16:02 203/96 12/18/17 15:59 195/94 12/18/17 15:37 90 23 95 12/18/17 15:34 36.5 12/18/17 15:32 170/79 12/18/17 15:12 93 25 93 12/18/17 15:01 199/128 12/18/17 14:42 85 24 93 12/18/17 14:12 89 24 12/18/17 13:42 88 22 12/18/17 13:22 184/122 12/18/17 13:12 86 17 12/18/17 12:42 85 21 12/18/17 12:22 81 12/18/17 12:22 37.0 57 20 180/92 98 Room Air 12/18/17 12:16 199/110 Physical Exam GENERAL: alert, ill-appearing, well nourished, no distress, non-toxic EYE EXAM: normal conjunctiva, PERRL and EOM's grossly intact OROPHARYNX: no exudate, no erythema, lips, buccal mucosa, and tongue normal and mucous membranes are dry. NECK: supple, no nuchal rigidity, no adenopathy, non-tender LUNGS: Clear to auscultation. Normal chest wall mechanics HEART: no murmurs, S1 normal and S2 normal ABDOMEN: abdomen soft, non-tender, normo-active bowel sounds, no masses, no rebound or guarding. Vertical midline incision. Sutures intact. Dressing removed. No drainage. No surrounding erythema. Resolving ecchymosis noted. BACK: Back is symmetrical on inspection and there is no deformity, no midline tenderness, no CVA tenderness. SKIN: no rashes and no bruising UPPER EXTREMITIES: upper extremities are grossly normal. LOWER EXTREMITIES: No pitting edema. NEURO EXAM: Normal sensorium, cranial nerves II-XII grossly intact, normal speech, no gross weakness of arms, no gross weakness of legs. Medical Decision & Procedures ER Provider Diagnostic Interpretation: Radiology results have been interpreted by the radiologist and reviewed by me. ABD/PELVIS IV CONTRAST ONLY FINDINGS: Minimal bibasilar atelectasis. Small hiatal hernia. Liver enhances uniformly. Small peripheral hepatic cyst unchanged. The kidneys enhance uniformly. No evidence for hydronephrosis. Scattered pockets of free air within the abdomen and pelvis. Most likely on a postoperative basis. 2. Periumbilical ventral hernias are again noted. The hernia inferior to the umbilicus now contains a larger mildly distended loop of bowel. The Loop of bowel exiting the hernia is small caliber with the loop proximal considered distended. Moderate wall edema of the loop within the hernia. The small hernia superior to the umbilicus no longer contains a bowel loop. There is moderate soft tissue edematous change within the subcutaneous fat. The abdominal bowel pattern shows colon to be relatively collapsed. The distal small bowel is also of small caliber. Postoperative suture line changes are identified in the left pelvic region potentially indicating a partial colonic resection. Mild infiltrative changes in the paracolic gutter regions bilaterally. Moderate free fluid is identified within the pelvic cul-de-sac. Bladder is midline. IMPRESSION: 1. Interval operative changes of the abdomen and pelvis with scattered pockets of free air presumably postoperative. 2. Findings consistent with mid to distal small bowel obstructive change. 3. This potentially relates to an increase in size of a ventral hernia inferior to the umbilicus now containing a moderately edematous loop of small bowel . 4. Small bowel proximal to this level is distended and partially fluid-filled. 5. Moderate free fluid within the pelvic cul-de-sac. No evidence for abscess or collection at this time. The above report was generated using voice recognition software. It may contain grammatical, syntax or spelling errors. Electronically signed by: Senthil Muñoz M.D. 12/18/2017 5:17 PM PA CHEST WITH ABDOMINAL SERIES FINDINGS: A PA chest radiograph is compared to study dated 07/31/2013. The cardiomediastinal silhouette is unremarkable. Emphysema and chronic interstitial thickening are similar to previous. No airspace consolidation or pleural effusion is identified. No pneumothorax is seen. The skeletal structures are osteopenic. The bony thorax is grossly intact. Supine and erect abdominal radiographs are correlated with abdominal CT dated 10/11/2017. There is mild gaseous distention of the small bowel. Small bowel is measure up to 3.9 cm in diameter.. No evidence of intraperitoneal free air is seen. Scattered air-fluid levels are seen on the upright view. There are no abnormal abdominal calcifications. Suture material and phleboliths are noted in the pelvis. The skeletal structures are osteopenic. Moderate lumbosacral spondylosis is observed. IMPRESSION: 1. Emphysema with no active disease in the chest. 2. There is mild gaseous distention of the small bowel loops. This could be seen in the setting of a nonspecific enteritis. Developing small bowel obstruction is not excluded. Clinical correlation will be essential. 3. No intraperitoneal free air is seen. Electronically signed by: Kalia Serrano M.D. 12/18/2017 3:02 PM Laboratory Results Test 12/18/17 14:18 12/18/17 14:19 12/18/17 14:23 12/18/17 14:30 Total Bilirubin 0.7 mg/dl (0.2-1) Aspartate Amino Transf (AST/SGOT) 14 U/L (15-37) Alanine Aminotransferase (ALT/SGPT) 14 U/L (12-78) Alkaline Phosphatase 47 U/L (45-117) Troponin I 0.031 ng/ml (0-0.045) Pro-B-Type Natriuretic Peptide 1047 pg/ml (0-1800) Total Protein 6.6 gm/dl (6.4-8.2) Albumin 2.8 gm/dl (3.4-5.0) Globulin 3.8 gm/dl (2.5-4.0) Albumin/Globulin Ratio 0.7 (0.9-2) Thyroid Stimulating Hormone (TSH) 0.563 uIu/ml (0.300-4.500) Prothrombin Time 12.4 SECONDS (9.0-12.0) Prothromb Time International Ratio 1.2 (0.9-1.1) Bedside Lactic Acid Venous 1.00 mmol/L (0.90-1.70) Urine Color YELLOW Urine Appearance CLEAR (CLEAR) Urine pH 5.0 (4.5-7.5) Urine Specific Ward 1.029 (1.000-1.030) Urine Protein NEG (NEG) Urine Glucose (UA) NEG (NEG) Urine Ketones 3+ (NEG) Urine Occult Blood TRACE (NEG) Urine Nitrite NEG (NEG) Urine Bilirubin NEG (NEG) Urine Urobilinogen NEG (NEG) Urine Leukocyte Esterase NEG (NEG) Urine WBC (Auto) 1-5 /hpf (0-5) Urine RBC (Auto) 0-4 /hpf (0-4) Urine Hyaline Casts (Auto) 1-5 /lpf (0-5) Urine Epithelial Cells (Auto) 5-10 /lpf (0-5) Urine Bacteria (Auto) NEG (NEG) Laboratory results per my review. Medications Administered Medications (Trade) Dose Ordered Sig/Hi Route Start Time Stop Time Status Last Admin Dose Admin Sodium Chloride 1,000 ml @ 999 mls/hr Q1H1M STAT IV 12/18/17 13:11 12/18/17 14:11 DC 12/18/17 13:18 999 MLS/HR Ondansetron HCl (Zofran Inj) 4 mg NOW STAT IV 12/18/17 13:11 12/18/17 13:13 DC 12/18/17 13:17 4 MG Sodium Chloride 1,000 ml @ 200 mls/hr Q5H STAT IV 12/18/17 14:25 12/18/17 19:24 DC 12/18/17 15:31 200 MLS/HR Hydralazine HCl (HydrALAZINE INJ) 5 mg NOW STAT IV. 12/18/17 14:39 12/18/17 14:40 DC 12/18/17 15:25 5 MG Metoclopramide HCl (Reglan Inj) 10 mg NOW STAT IV. 12/18/17 15:22 12/18/17 15:23 DC 12/18/17 15:30 10 MG Diphenhydramine HCl (Benadryl Inj) 12.5 mg NOW STAT IV 12/18/17 15:22 12/18/17 15:23 DC 12/18/17 15:30 12.5 MG Hydralazine HCl (HydrALAZINE INJ) 5 mg NOW STAT IV. 12/18/17 16:17 12/18/17 16:18 DC 12/18/17 16:25 5 MG ED Course 1303: The patient was evaluated in room C3. A complete history and physical exam was performed. 1635: I reassessed the patient. She feels the same. 1735: Upon reevaluation, the patient is resting comfortably. I discussed the findings and the treatment plan with the patient. She expresses agreement and understanding. I [place] [facility] [place] The patient will be evaluated for further management. 1800: Discussed the CT scan with Dr. Muñoz of Radiology. 1805: Discussed again with Dr. Fox, would like NG tube. Discussed CT findings by rad concerning for loop of bowel within inferior ventral hernia. No additional orders at this time. Medical Decision Differential diagnosis: Etiologies such as benign hypertension, hypertensive emergency, cardiovascular pathology, pheochromocytoma, electrolyte abnormality, renal disease, endorgan damage, as well as others were entertained. Patient ill-appearing here, and concern for postoperative complication given recent surgery last week. Patient started on IV fluids given pain and nausea medication. Patient's labs reviewed and were overall reassuring with no significant leukocytosis or elevated lactic acid. Mildly elevated lipase noted , however patient's exam and imaging not consistent with acute pancreatitis. CT with oral and IV contrast performed. Concern not only for evolving small bowel obstruction noted on CT, but also for recurrence of a ventral hernia inferior to the most recent surgical repair which now contains a loop of small bowel which shows some evolving edema. Patient's abdominal exam originally not strongly suggestive of bowel obstruction, does not examine like an acute surgical abdomen, and incision was examined and appears to be healing well. Case discussed with surgery on-call for admission, they would prefer medicine to admit and they will see in consult. They were made aware of CT findings including my discussion with radiologist regarding the inferior ventral hernia containing a loop of small bowel. They will see the patient in consult and discussed this with her. Patient hemodynamically stable throughout, aware of all results, and agreeable with plan for additional hospitalist and surgical evaluation. Patient hypertensive here through most of her stay, was given 2 small doses of hydralazine given a mildly low heart rate. Patient's blood pressure did improve. I suspect this is likely from not being able to take her usual medications of the last several days, combined with dehydration, vomiting , and subsequent pain postop. I do not feel patient has hypertensive urgency and there is no evidence of endorgan damage to suggest emergency. I do not suspect other vascular etiology contributing to this. I do not suspect bacteremia/sepsis, perforation, occult GI bleed. Patient awake alert and oriented throughout, able to answer questions and participate in care. Medication Reconcilliation Current Medication List: was personally reviewed by me Blood Pressure Screening Patient's blood pressure: Elevated blood pressure Blood pressure disposition: Referred to PCP Consults Time Called: 173 Consulting Physician: Dr. Fox - General Surgery Returned Call: 174 I reviewed the patient's case with Dr. Fox of General Surgery. He recommends medical admission with surgical consult. Additional Consults: Time Called: 1748 Consulted Physician: Dr. Fagan - [facility] [place] Returned Call: [phone] Additional Comments: I reviewed the patient's case with Dr. Fagan. [facility] will evaluate the patient for further management. Impression Primary Impression: Bowel obstruction Additional Impressions: Nausea & vomiting Dehydration Ventral hernia Elevated lipase Hypertension Scribe Attestation The scribe's documentation has been prepared under my direction and personally reviewed by me in its entirety. I confirm that the note above accurately reflects all work, treatment, procedures, and medical decision making performed by me. Departure Information Dispostion Being Evaluated By Hospitalist Referrals RV. Fay MD (PCP) Patient Instructions [facility] Problem Qualifiers Primary Impression: Bowel obstruction Intestinal obstruction type: unspecified Intestinal obstruction extent: partial Qualified Codes: K56.600 - Partial intestinal obstruction, unspecified as to cause Additional Impressions: Nausea & vomiting Vomiting type: unspecified Vomiting Intractability: non-intractable Qualified Codes: R11.2 - Nausea with vomiting, unspecified Ventral hernia Obstruction and gangrene presence: with obstruction but without gangrene Qualified Codes: K43.6 - Other and unspecified ventral hernia with obstruction , without gangrene Hypertension Hypertension type: unspecified Qualified Codes: I10 - Essential (primary) hypertension
--- NOTE | 2017-12-18 19:21 | Surgery Consultation ---
Consultation Date of Consultation: Dec 18, 2017. Attending Physician: History of Present Illness pt is a 77 year old femal who presents to ER with 2 days history nausea and vomiting, pt had open repair Ventral hernia x2 with mesh by Dr. Scruggs 5 days ago. last bm 2 days ago, pt denies significant abdominal pain, no fever, passed some gas today, Past Medical/Surgical History Medical Problems: (1) Bowel obstruction Status: Acute (2) Dehydration Status: Acute (3) Nausea & vomiting Status: Acute Social History Smoking Status: Unknown if Ever Smoked Smokeless Tobacco Use: No Alcohol Use: none Drug Use: none Occupation Status: retired Allergies Coded Allergies: Alendronate (Verified Allergy, Unknown, WEAKNESS HANDS, 12/18/17) Home Medications Scheduled Atorvastatin (Lipitor), 5 MG PO HS Calcium Carbonate-Vitamin D (Calcium + D), 1 TAB PO QAM Cyanocobalamin (Vitamin B12 100 Mcg), 100 MCG PO QAM Fluticasone Prop/Salmeterol (Advair Diskus 500-50 Mcg/Dose), 1 PUFF INH Q12H Ibandronate Sodium (Boniva), 150 MG PO MONTHLY Multivitamin (Multivitamin), 1 TAB PO QAM [place]-3 Fatty Acids (Fish Oil), 2 TAB PO QAM Ranitidine (Zantac), 150 MG PO HS Sertraline (Zoloft), 150 MG PO QAM Scheduled PRN Albuterol Hfa (Ventolin Hfa), 1-2 PUFFS INH Q4H PRN for Shortness of Breath Current Inpatient Medications Current Inpatient Medications Medications (Trade) Dose Ordered Sig/Hi Route Start Time Stop Time Status Last Admin Dose Admin Sodium Chloride 1,000 ml @ 200 mls/hr Q5H STAT IV 12/18/17 14:25 12/18/17 19:24 12/18/17 15:31 200 MLS/HR Ioversol (Optiray 320) 100 ml UD PRN IV 12/18/17 16:45 12/22/17 16:44 Review of Systems Constitutional: No fever, No chills, No sweats, No weight loss, No weakness, No fatigue, No problem reported Eyes: No worsening of vision, No eye pain, No redness, No discharge, No diplopia, No problem reported ENT: No hearing loss, No unusual epistaxis, No nasal symptoms, No sore throat, No tinnitus, No dental problems, No trouble swallowing, No problem reported Respiratory: No cough, No sputum, No wheezing, No shortness of breath, No dyspnea on exertion, No dyspnea at rest, No hemoptysis, No problem reported Cardiovascular: No chest pain, No orthopnea, No PND, No edema, No claudication , No palpitations, No problem reported Abdomen: + nausea, + vomiting Musculoskeletal: No joint pain, No muscle pain, No swelling, No calf pain, No problem reported Genitourinary - Female: No dysuria, No urinary frequency, No urinary urgency, No urinary incontinence, No urinary retention, No hematuria, No dysmenorrhea, No menorrhagia, No metrorrhagia, No rash, No vaginal bleeding, No vaginal discharge, No vaginal itching, No vulvodynia, No , No problem reported Neurologic: No memory loss, No paralysis, No weakness, No numbness/tingling, No vertigo, No balance problems, No problem reported Psychiatric: No depression symptoms, No anhedonism, No anxiety, No insomnia, No substance abuse, No problem reported Endocrine: No fatigue, No excessive thirst, No excessive urination, No problem reported Hematologic / Lymphatic: No abnormal bleeding/bruising, No clotting problems, No swollen lymph nodes, No night sweats, No problem reported Physical Exam Date Time Temp Pulse Resp B/P (MAP) Pulse Ox O2 Delivery O2 Flow Rate FiO2 12/18/17 16:28 99 12/18/17 16:21 193/93 12/18/17 16:07 96 25 97 12/18/17 16:02 203/96 12/18/17 15:59 195/94 12/18/17 15:37 90 23 95 12/18/17 15:34 36.5 12/18/17 15:32 170/79 12/18/17 15:12 93 25 93 12/18/17 15:01 199/128 12/18/17 14:42 85 24 93 12/18/17 14:12 89 24 12/18/17 13:42 88 22 12/18/17 13:22 184/122 12/18/17 13:12 86 17 12/18/17 12:42 85 21 12/18/17 12:22 81 12/18/17 12:22 37.0 57 20 180/92 98 Room Air 3/27/18 12:16 199/110 General Appearance: WD/WN, no apparent distress Head: normocephalic Eyes: normal inspection ENT: normal ENT inspection Neck: supple, no adenopathy, no JVD Respiratory/Chest: chest non-tender, lungs clear, normal breath sounds, no respiratory distress Cardiovascular: regular rate, rhythm, no edema, no gallop, no JVD, no murmur Abdomen/GI: normal bowel sounds, non tender, soft, no organomegaly, no pulsatile mass (2 incisions on middle line, heal wellno tenderness, no redness, ) Extremities/Musculoskelatal: normal inspection, no calf tenderness, normal capillary refill Neurologic/Psych: no motor/sensory deficits, alert, normal mood/affect Skin: normal color, warm/dry, no rash Lymphatic: no adenopathy Laboratory Results Last 24 Hours Test 12/18/17 14:18 12/18/17 14:23 12/18/17 14:30 White Blood Count 10.70 K/uL Red Blood Count 4.62 M/uL Hemoglobin 14.7 g/dL Hematocrit 42.3 % Mean Corpuscular Volume 91.6 fL Mean Corpuscular Hemoglobin 31.8 pg Mean Corpuscular Hemoglobin Concent 34.8 g/dl Platelet Count 340 K/uL Mean Platelet Volume 9.4 fL Neutrophils (%) (Auto) 74.8 % Lymphocytes (%) (Auto) 13.3 % Monocytes (%) (Auto) 10.8 % Eosinophils (%) (Auto) 0.5 % Basophils (%) (Auto) 0.3 % Neutrophils # (Auto) 8.01 K/uL Lymphocytes # (Auto) 1.42 K/uL Monocytes # (Auto) 1.16 K/uL Eosinophils # (Auto) 0.05 K/uL Basophils # (Auto) 0.03 K/uL RDW Standard Deviation 44.4 fL RDW Coefficient of Variation 13.3 % Immature Granulocyte % (Auto) 0.3 % Immature Granulocyte # (Auto) 0.03 K/uL Sodium Level 135 mmol/L Potassium Level 3.7 mmol/L Chloride Level 101 mmol/L Carbon Dioxide Level 25 mmol/L Anion Gap 9.0 mmol/L Blood Urea Nitrogen 20 mg/dl Creatinine 0.55 mg/dl Est Creatinine Clear Calc Drug Dose 74.0 ml/min Estimated GFR () 104.9 Estimated GFR (Non- 90.5 BUN/Creatinine Ratio 36.3 Random Glucose 84 mg/dl Calcium Level 8.4 mg/dl Magnesium Level 2.1 mg/dl Total Bilirubin 0.7 mg/dl Aspartate Amino Transf (AST/SGOT) 14 U/L Alanine Aminotransferase (ALT/SGPT) 14 U/L Alkaline Phosphatase 47 U/L Troponin I 0.031 ng/ml Pro-B-Type Natriuretic Peptide 1047 pg/ml Total Protein 6.6 gm/dl Albumin 2.8 gm/dl Globulin 3.8 gm/dl Albumin/Globulin Ratio 0.7 Lipase 425 U/L Thyroid Stimulating Hormone (TSH) 0.563 uIu/ml Bedside Lactic Acid Venous 1.00 mmol/L Urine Color YELLOW Urine Appearance CLEAR Urine pH 5.0 Urine Specific [place] 1.029 Urine Protein NEG Urine Glucose (UA) NEG Urine Ketones 3+ Urine Occult Blood TRACE Urine Nitrite NEG Urine Bilirubin NEG Urine Urobilinogen NEG Urine Leukocyte Esterase NEG Urine WBC (Auto) 1-5 /hpf Urine RBC (Auto) 0-4 /hpf Urine Hyaline Casts (Auto) 1-5 /lpf Urine Epithelial Cells (Auto) 5-10 /lpf Urine Bacteria (Auto) NEG Assessment & Plan CT scan- FINDINGS: Minimal bibasilar atelectasis. Small hiatal hernia. Liver enhances uniformly. Small peripheral hepatic cyst unchanged. The kidneys enhance uniformly. No evidence for hydronephrosis. Scattered pockets of free air within the abdomen and pelvis. Most likely on a postoperative basis. 2. Periumbilical ventral hernias are again noted. The hernia inferior to the umbilicus now contains a larger mildly distended loop of bowel. The Loop of bowel exiting the hernia is small caliber with the loop proximal considered distended. Moderate wall edema of the loop within the hernia. The small hernia superior to the umbilicus no longer contains a bowel loop. There is moderate soft tissue edematous change within the subcutaneous fat. The abdominal bowel pattern shows colon to be relatively collapsed. The distal small bowel is also of small caliber. Postoperative suture line changes are identified in the left pelvic region potentially indicating a partial colonic resection. Mild infiltrative changes in the paracolic gutter regions bilaterally. Moderate free fluid is identified within the pelvic cul-de-sac. Bladder is midline. IMPRESSION: 1. Interval operative changes of the abdomen and pelvis with scattered pockets of free air presumably postoperative. 2. Findings consistent with mid to distal small bowel obstructive change. 3. This potentially relates to an increase in size of a ventral hernia inferior to the umbilicus now containing a moderately edematous loop of small bowel . 4. Small bowel proximal to this level is distended and partially fluid-filled. 5. Moderate free fluid within the pelvic cul-de-sac. No evidence for abscess or collection at this time. Assessment: pt is a 77 year old female who is S/P ventral hernia x2 5 days ago, now pt develops SBO, IMP: ventral hernia recurrence, contain large bowel, I recommend to do surgery to repair recurrence ventral hernia, but pt wants to wait to see Dr. Scruggs tomorrow, I indicated that could develops ischemic bowel or necrotic bowel for waiting period, pt understood, she said she knows consequences, I answered all questions, NGT IV fluid, control pain, will contact Dr. Scruggs tomorrow
[2017-12-18] MEDS ORDERED: ONDANSETRON INJ 2 MG/ML 2 ML VIAL IV PRN (19:30)
[2017-12-18] MEDS ORDERED: HydrALAZINE HCL 20 MG/ML VIAL IV. PRN (19:30)
--- NOTE | 2017-12-18 20:10 | History and Physical ---
History & Physical Date & Time of Service: Dec 18, 2017 at 20:03 Chief Complaint: Illness Primary Care Physician: RV. Fay MD History of Present Illness Source: patient, hospital records 77 yo female who is s/p incisional hernia repair, went home from hospital on . She said she has not been able to eat since going home, persistent nausea. She has vomited occasionally, last time she vomited was 2 days prior to admission. She had two bowel movements, one on 12/15 and one on 12/16, no diarrhea. She is passing flatus. She did not attempt to eat today due to pain , nausea and fear of vomiting. Her abdomen is more distended than usual and she has some epigastric pain. In the ED her lab work was normal, CT showed a partial small bowel obstruction. Discussed with general surgery, they asked medicine to admit since this will likely not be a surgical problem. Past Medical/Surgical History High cholesterol GERD Depression Asthma Medical Problems: (1) Depression (2) Diverticulitis (3) Incisional hernia Family History HTN Social History Smoking Status: Unknown if Ever Smoked Smokeless Tobacco Use: No Alcohol Use: none Drug Use: none Occupational Status: retired Immunizations History of Influenza Vaccine: Yes Influenza Vaccine Date: Aug 08, 2006 History of Tetanus Vaccine?: No History of Pneumococcal: No History of Hepatitis B Vaccine: No Allergies Coded Allergies: Alendronate (Verified Allergy, Unknown, WEAKNESS HANDS, 12/18/17) Home Medications Scheduled Atorvastatin (Lipitor), 5 MG PO HS Calcium Carbonate-Vitamin D (Calcium + D), 1 TAB PO QAM Cyanocobalamin (Vitamin B12 100 Mcg), 100 MCG PO QAM Fluticasone Prop/Salmeterol (Advair Diskus 500-50 Mcg/Dose), 1 PUFF INH Q12H Ibandronate Sodium (Boniva), 150 MG PO MONTHLY Multivitamin (Multivitamin), 1 TAB PO QAM [place]-3 Fatty Acids (Fish Oil), 2 TAB PO QAM Ranitidine (Zantac), 150 MG PO HS Sertraline (Zoloft), 150 MG PO QAM Scheduled PRN Albuterol Hfa (Ventolin Hfa), 1-2 PUFFS INH Q4H PRN for Shortness of Breath Review of Systems Constitutional: + weakness, + fatigue, No fever, No chills, No sweats, No weight loss, No problem reported Eyes: No worsening of vision, No eye pain, No redness, No discharge, No diplopia, No problem reported ENT: No hearing loss, No unusual epistaxis, No nasal symptoms, No sore throat, No tinnitus, No dental problems, No trouble swallowing, No problem reported Respiratory: No cough, No sputum, No wheezing, No shortness of breath, No dyspnea on exertion, No dyspnea at rest, No hemoptysis, No problem reported Cardiovascular: No chest pain, No orthopnea, No PND, No edema, No claudication , No palpitations, No problem reported Abdomen: + pain, + nausea, + vomiting, + constipation Musculoskeletal: No joint pain, No muscle pain, No swelling, No calf pain, No problem reported Genitourinary - Female: No dysuria, No urinary frequency, No urinary urgency, No urinary incontinence, No urinary retention Neurologic: No memory loss, No paralysis, No weakness, No numbness/tingling, No vertigo, No balance problems, No problem reported Psychiatric: No depression symptoms, No anhedonism, No anxiety, No insomnia, No substance abuse, No problem reported Endocrine: No fatigue, No excessive thirst, No excessive urination, No problem reported Hematologic / Lymphatic: No abnormal bleeding/bruising, No clotting problems, No swollen lymph nodes, No night sweats, No problem reported Integumentary: No rash, No itch, No new/changing skin lesions, No color change , No bleeding, No problem reported Allergic / Immunologic: No environmental allergies, No seasonal allergies, No pet sensitivities, No food allergies, No hives, No frequent infections, No poor healing, No prolonged convalescence, No problem reported Physical Exam Vital Signs Date Time Temp Pulse Resp B/P (MAP) Pulse Ox O2 Delivery O2 Flow Rate FiO2 12/18/17 18:54 105 15 156/88 95 Room Air 12/18/17 16:28 99 12/18/17 16:21 193/93 12/18/17 16:07 96 25 97 12/18/17 16:02 203/96 12/18/17 15:59 195/94 12/18/17 15:37 90 23 95 12/18/17 15:34 36.5 12/18/17 15:32 170/79 12/18/17 15:12 93 25 93 12/18/17 15:01 199/128 12/18/17 14:42 85 24 93 12/18/17 14:12 89 24 12/18/17 13:42 88 22 12/18/17 13:22 184/122 12/18/17 13:12 86 17 12/18/17 12:42 85 21 12/18/17 12:22 81 12/18/17 12:22 37.0 57 20 180/92 98 Room Air 12/18/17 12:16 199/110 General Appearance: WD/WN, no apparent distress Head: normocephalic, atraumatic Eyes: normal inspection, EOMI, sclerae normal ENT: normal ENT inspection, hearing grossly normal, pharynx normal, + nasal congestion Neck: supple, no adenopathy, no JVD, trachea midline Respiratory/Chest: chest non-tender, lungs clear, normal breath sounds, no respiratory distress, no accessory muscle use Cardiovascular: regular rate, rhythm, no edema, no gallop, no JVD, no murmur, normal peripheral pulses Abdomen/GI: soft, + tenderness, + abnormal bowel sounds, + distended Back: normal inspection, no CVA tenderness, no muscle spasm, normal range of motion Extremities/Musculoskelatal: normal inspection, no calf tenderness, normal capillary refill, no pedal edema, normal range of motion, pelvis stable Neurologic/Psych: clinical services director II-XII nml as tested, no motor/sensory deficits, alert, normal mood/affect, normal reflexes, oriented x 3 Skin: normal color, warm/dry, no rash Lymphatic: no adenopathy Diagnostics Laboratory Results Results Past 24 Hours Test 12/18/17 14:18 12/18/17 14:23 12/18/17 14:30 Range/Units White Blood Count 10.70 4.8-10.8 K/uL Red Blood Count 4.62 4.2-5.4 M/uL Hemoglobin 14.7 12.0-16.0 g/dL Hematocrit 42.3 37-47 % Mean Corpuscular Volume 91.6 80-100 fL Mean Corpuscular Hemoglobin 31.8 25-34 pg Mean Corpuscular Hemoglobin Concent 34.8 32-36 g/dl Platelet Count 340 130-400 K/uL Mean Platelet Volume 9.4 7.4-10.4 fL Neutrophils (%) (Auto) 74.8 % Lymphocytes (%) (Auto) 13.3 % Monocytes (%) (Auto) 10.8 % Eosinophils (%) (Auto) 0.5 % Basophils (%) (Auto) 0.3 % Neutrophils # (Auto) 8.01 1.4-6.5 K/uL Lymphocytes # (Auto) 1.42 1.2-3.4 K/uL Monocytes # (Auto) 1.16 0.11-0.59 K/uL Eosinophils # (Auto) 0.05 0-0.5 K/uL Basophils # (Auto) 0.03 0-0.2 K/uL RDW Standard Deviation 44.4 36.4-46.3 fL RDW Coefficient of Variation 13.3 11.5-14.5 % Immature Granulocyte % (Auto) 0.3 % Immature Granulocyte # (Auto) 0.03 0.00-0.02 K/uL Sodium Level 135 136-145 mmol/L Potassium Level 3.7 3.5-5.1 mmol/L Chloride Level 101 98-107 mmol/L Carbon Dioxide Level 25 21-32 mmol/L Anion Gap 9.0 3-11 mmol/L Blood Urea Nitrogen 20 7-18 mg/dl Creatinine 0.55 0.60-1.20 mg/dl Est Creatinine Clear Calc Drug Dose 74.0 ml/min Estimated GFR () 104.9 Estimated GFR (Non- 90.5 BUN/Creatinine Ratio 36.3 10-20 Random Glucose 84 70-99 mg/dl Calcium Level 8.4 8.5-10.1 mg/dl Magnesium Level 2.1 1.8-2.4 mg/dl Total Bilirubin 0.7 0.2-1 mg/dl Aspartate Amino Transf (AST/SGOT) 14 15-37 U/L Alanine Aminotransferase (ALT/SGPT) 14 12-78 U/L Alkaline Phosphatase 47 45-117 U/L Troponin I 0.031 0-0.045 ng/ml Pro-B-Type Natriuretic Peptide 1047 0-1800 pg/ml Total Protein 6.6 6.4-8.2 gm/dl Albumin 2.8 3.4-5.0 gm/dl Globulin 3.8 2.5-4.0 gm/dl Albumin/Globulin Ratio 0.7 0.9-2 Lipase 425 73-393 U/L Thyroid Stimulating Hormone (TSH) 0.563 0.300-4.500 uIu/ml Bedside Lactic Acid Venous 1.00 0.90-1.70 mmol/L Urine Color YELLOW Urine Appearance CLEAR CLEAR Urine pH 5.0 4.5-7.5 Urine Specific [place] 1.029 1.000-1.030 Urine Protein NEG NEG Urine Glucose (UA) NEG NEG Urine Ketones 3+ NEG Urine Occult Blood TRACE NEG Urine Nitrite NEG NEG Urine Bilirubin NEG NEG Urine Urobilinogen NEG NEG Urine Leukocyte Esterase NEG NEG Urine WBC (Auto) 1-5 0-5 /hpf Urine RBC (Auto) 0-4 0-4 /hpf Urine Hyaline Casts (Auto) 1-5 0-5 /lpf Urine Epithelial Cells (Auto) 5-10 0-5 /lpf Urine Bacteria (Auto) NEG NEG Diagnostic Radiology CT abdomen/pelvis IMPRESSION: 1. Interval operative changes of the abdomen and pelvis with scattered pockets of free air presumably postoperative. 2. Findings consistent with mid to distal small bowel obstructive change. 3. This potentially relates to an increase in size of a ventral hernia inferior to the umbilicus now containing a moderately edematous loop of small bowel . 4. Small bowel proximal to this level is distended and partially fluid-filled. 5. Moderate free fluid within the pelvic cul-de-sac. No evidence for abscess or collection at this time. Normal EKG Impression Assessment and Plan 77 yo female with - Partial SBO: NGT, NPO, IV fluids, ambulate consult general surgery check BMP in the AM - Asthma: lungs clear, continue Advair - GERD, high cholesterol: stable, hold home meds - Depression: ok to hold Zoloft DVT proph: Heparin Resuscitation Status VTE Prophylaxis Will order VTE Prophylaxis: Yes
[2017-12-18 20:30] VITALS: BP 186/82; PULSE 106; TEMP 36.8; O2SAT 93; Ht 162.6 cm; Wt 56.6 kg
[2017-12-18] MEDS ORDERED: ALBUTEROL HFA 8 GM INHALER INH PRN (20:45)
[2017-12-18] MEDS ORDERED: IV FLUIDS COMPLETED PRN (21:00)
[2017-12-18] MEDS: FLUTICASONE/SALMETEROL (ADVAIR) 500/50 INH 14 PUFF INH SCH (21:43)
[2017-12-18] MEDS: D5NSS + 20MEQ KCL 1,000 ML IV SCH (21:44)
[2017-12-18] MEDS: LORAZEPAM INJ 0.5 MG in SYRINGE 0.25 ML IV STA (22:43)
[2017-12-18 23:02] VITALS: BP 148/72; PULSE 101; TEMP 37.1; O2SAT 93
[2017-12-18 23:05] LABS: INR 1.2 (0.9-1.1)
[2017-12-19] VITALS (9 sets, daily range): BP systolic 146–192; BP diastolic 73–84; PULSE 69–97; TEMP 36.6–37; O2SAT 92–98
[2017-12-19] MEDS: LORAZEPAM INJ 0.5 MG in SYRINGE 0.25 ML IV STA (00:25)
[2017-12-19] MEDS: HEPARIN SOD 5000 UNIT/0.5 ML CARP SQ SCH ×3 (05:47→21:20)
[2017-12-19] MEDS ORDERED: CEFAZOLIN SOD 2000MG/15 ML IV PUSH IV SCH (06:00)
--- NOTE | 2017-12-19 06:27 | Surgery Progress Note ---
Surgery Progress Note Date of Service Dec 19, 2017. Subjective pt is still not pass any gas overnight, pt feels more nausea,lower abdominal pain, PMH, pt had perforated diverticulitis with bowel resection and colostomy, Objective Vital Signs: Date Time Temp Pulse Resp B/P (MAP) Pulse Ox O2 Delivery O2 Flow Rate FiO2 12/19/17 00:20 Room Air 12/18/17 23:02 37.1 101 18 148/72 (97) 93 Room Air 12/18/17 20:30 36.8 106 20 186/82 93 Room Air 12/18/17 20:17 36.9 98 16 166/83 96 Room Air 12/18/17 18:54 105 15 156/88 95 Room Air 12/18/17 16:28 99 12/18/17 16:21 193/93 12/18/17 16:07 96 25 97 12/18/17 16:02 203/96 12/18/17 15:59 195/94 12/18/17 15:37 90 23 95 12/18/17 15:34 36.5 12/18/17 15:32 170/79 12/18/17 15:12 93 25 93 12/18/17 15:01 199/128 12/18/17 14:42 85 24 93 12/18/17 14:12 89 24 12/18/17 13:42 88 22 12/18/17 13:22 184/122 12/18/17 13:12 86 17 12/18/17 12:42 85 21 12/18/17 12:22 81 12/18/17 12:22 37.0 57 20 180/92 98 Room Air 12/18/17 12:16 199/110 General Appearance: WD/WN, + mild distress Head: normocephalic Neck: supple, no JVD Respiratory/Chest: chest non-tender, lungs clear Cardiovascular: regular rate, rhythm, no edema, no gallop, no JVD Abdomen: normal bowel sounds, + distended, + tenderness (at lower abdomen, rebound pain-) Incision(s): clean, dry, intact Extremities: normal range of motion, non-tender, normal inspection Laboratory Results: Results Past 24 Hours Test 12/18/17 14:18 12/18/17 14:19 12/18/17 14:23 12/18/17 14:30 Range/Units White Blood Count 10.70 4.8-10.8 K/uL Red Blood Count 4.62 4.2-5.4 M/uL Hemoglobin 14.7 12.0-16.0 g/dL Hematocrit 42.3 37-47 % Mean Corpuscular Volume 91.6 80-100 fL Mean Corpuscular Hemoglobin 31.8 25-34 pg Mean Corpuscular Hemoglobin Concent 34.8 32-36 g/dl Platelet Count 340 130-400 K/uL Mean Platelet Volume 9.4 7.4-10.4 fL Neutrophils (%) (Auto) 74.8 % Lymphocytes (%) (Auto) 13.3 % Monocytes (%) (Auto) 10.8 % Eosinophils (%) (Auto) 0.5 % Basophils (%) (Auto) 0.3 % Neutrophils # (Auto) 8.01 1.4-6.5 K/uL Lymphocytes # (Auto) 1.42 1.2-3.4 K/uL Monocytes # (Auto) 1.16 0.11-0.59 K/uL Eosinophils # (Auto) 0.05 0-0.5 K/uL Basophils # (Auto) 0.03 0-0.2 K/uL RDW Standard Deviation 44.4 36.4-46.3 fL RDW Coefficient of Variation 13.3 11.5-14.5 % Immature Granulocyte % (Auto) 0.3 % Immature Granulocyte # (Auto) 0.03 0.00-0.02 K/uL Sodium Level 135 136-145 mmol/L Potassium Level 3.7 3.5-5.1 mmol/L Chloride Level 101 98-107 mmol/L Carbon Dioxide Level 25 21-32 mmol/L Anion Gap 9.0 3-11 mmol/L Blood Urea Nitrogen 20 7-18 mg/dl Creatinine 0.55 0.60-1.20 mg/dl Est Creatinine Clear Calc Drug Dose 74.0 ml/min Estimated GFR () 104.9 Estimated GFR (Non- 90.5 BUN/Creatinine Ratio 36.3 10-20 Random Glucose 84 70-99 mg/dl Calcium Level 8.4 8.5-10.1 mg/dl Magnesium Level 2.1 1.8-2.4 mg/dl Total Bilirubin 0.7 0.2-1 mg/dl Aspartate Amino Transf (AST/SGOT) 14 15-37 U/L Alanine Aminotransferase (ALT/SGPT) 14 12-78 U/L Alkaline Phosphatase 47 45-117 U/L Troponin I 0.031 0-0.045 ng/ml Pro-B-Type Natriuretic Peptide 1047 0-1800 pg/ml Total Protein 6.6 6.4-8.2 gm/dl Albumin 2.8 3.4-5.0 gm/dl Globulin 3.8 2.5-4.0 gm/dl Albumin/Globulin Ratio 0.7 0.9-2 Lipase 425 73-393 U/L Thyroid Stimulating Hormone (TSH) 0.563 0.300-4.500 uIu/ml Prothrombin Time 12.4 9.0-12.0 SECONDS Prothromb Time International Ratio 1.2 0.9-1.1 Bedside Lactic Acid Venous 1.00 0.90-1.70 mmol/L Urine Color YELLOW Urine Appearance CLEAR CLEAR Urine pH 5.0 4.5-7.5 Urine Specific [place] 1.029 1.000-1.030 Urine Protein NEG NEG Urine Glucose (UA) NEG NEG Urine Ketones 3+ NEG Urine Occult Blood TRACE NEG Urine Nitrite NEG NEG Urine Bilirubin NEG NEG Urine Urobilinogen NEG NEG Urine Leukocyte Esterase NEG NEG Urine WBC (Auto) 1-5 0-5 /hpf Urine RBC (Auto) 0-4 0-4 /hpf Urine Hyaline Casts (Auto) 1-5 0-5 /lpf Urine Epithelial Cells (Auto) 5-10 0-5 /lpf Urine Bacteria (Auto) NEG NEG Test 12/19/17 04:44 Range/Units Assessment & Plan IMP recurrent hernia, SBO, possible incarcerated hernia based on pt is still have SBO, not pass gas, I recommend to do emergent exploratory laparotomy, possible bowel resection or stoma, D/W benefits, risks and alternatives of the procedure, the risks - infection, bleeding, hernia recurrence, CT, injury bowel, DVT, stroke, , pt understood, she agrees with the surgery, she signed consent, I answered all questions, I also called pt 's daughter. she agrees with the surgery.
[2017-12-19] MEDS ORDERED: LIDOCAINE HCL 2% 2 ML VIAL (20MG/ML) ONE ×2 (06:43→06:46)
[2017-12-19] MEDS ORDERED: DEXAMETHASONE SOD INJ 4 MG/ML VIAL ONE (06:43)
[2017-12-19] MEDS ORDERED: ONDANSETRON INJ 2 MG/ML 2 ML VIAL ONE (06:43)
[2017-12-19] MEDS ORDERED: PROPOFOL IV EMULSION 10 MG/ML 20 ML VIAL IV ONE (06:43)
[2017-12-19] MEDS ORDERED: FENTANYL CITRATE INJ 50 MCG/1 ML 2 ML VIAL ONE (06:44)
[2017-12-19] MEDS ORDERED: MIDAZOLAM HCL 1 MG/ML 2ML VIAL ONE (06:44)
[2017-12-19] MEDS ORDERED: BUPIVACAINE 0.5 % 5 MG/1 ML MPF 30ML VIAL ONE (06:52)
[2017-12-19] MEDS ORDERED: LIDOCAINE HCL 1% 20 ML VIAL ONE (06:53)
[2017-12-19] MEDS ORDERED: BACITRACIN OINT 15 GM TUBE ONE (06:53)
--- NOTE | 2017-12-19 07:23 | History & Physical Bridge Note ---
H&P Re-Evaluation Bridge Note: I have examined the patient, reviewed the History & Physical and in the interval since the performance of the History & Physical I have noted the following changes of clinical significance: pt seen. had been retching at home. noted lower hernia enlarging. +N/V. CT scan reviewed. +recurrence of lower hernia with small bowel incarceration. discussed options /risks ( bleeding/ infection/infection of mesh/dvt/pe etc...). questions answered. ok to proceed with exploration /repair of recurrent hernia.
[2017-12-19] MEDS ORDERED: PHENYLEPHRINE 100MCG/ML 5ML SYR ONE (08:12)
[2017-12-19] MEDS ORDERED: SUCCINYLCHOLINE CHLORIDE 20 MG/ML 10 ML VIAL IV ONE (08:12)
[2017-12-19] MEDS ORDERED: EpHEDrine SULFATE 50MG/5ML SYR ONE (08:12)
[2017-12-19] MEDS ORDERED: HYDROmorphone INJ 1 MG/ML SYR IV PRN (08:15)
[2017-12-19] MEDS ORDERED: ATROPINE SULFATE 0.1 MG/ML 5ML SYR IV PRN ×2 (08:15→09:45)
[2017-12-19] MEDS ORDERED: EpHEDrine SULFATE INJ 50 MG/ML AMP IV PRN ×2 (08:15→09:45)
[2017-12-19] MEDS ORDERED: ONDANSETRON INJ 2 MG/ML 2 ML VIAL IV PRN (08:15)
--- NOTE | 2017-12-19 08:37 | [facility] Operative Report ---
Operative Report Operative Date Dec 19, 2017. Pre-Operative Diagnosis Recurrent Ventral Hernia Post-Operative Diagnosis Recurrent Ventral Hernia with small bowel obstruction Procedure(s) Performed Exploritory Laparoscopy, release of SBO, removal old mesh, Repair of Recurrent Ventral Hernia with biologic Mesh, Release of Small Bowel Obstruction Surgeon Dr Scruggs Documentation Nurse Surgeon(s) Merritt Michael PA-C Estimated Blood Loss 5cc Specimens None Per Surgeon Anesthesia Type General Description of Procedure After informed consent was obtained the patient was brought to the operating room and placed in the supine position. An NG tube had already been placed. The patient was intubated and a Navas catheter was placed. The abdomen was sterilely prepped and draped in usual fashion. We opened her old infraumbilical incision with a 10 blade scalpel and carried it down through the soft tissues using electrocautery. We immediately encountered a sterile looking seroma. We suctioned this out which revealed that the right lateral side of the previous mesh had failed. There was small bowel popping up through a fascial defect and coming out the right lateral side of the mesh. We were able to use scissors to take down the Ethibond that were holding the mesh in place previously and removed the pro-outside collector mesh in its entirety. The defect was quite small with a large knuckle of bowel coming through it. There was no evidence of bowel ischemia however it was very tight and I was unable to reduce the small bowel. I extended the fascial defect inferiorly. I then used scissors to take down adhesions of the small bowel from the undersurface of the fascia until we were able to completely reduce the small bowel. Next I freshened up the edges of the fascia. We took down any fatty debris until we had a clean fascial edges. I then used a #1 Ethibond in interrupted figure-of- eight fashion to primarily close the defect. After this we thoroughly irrigated the wound. I used a piece of ovitex biologic type mesh as an onlay. It was secured in 360 using 0 Ethibond in simple interrupted fashion. The mesh laid nice and flat. We thoroughly irrigated the wound a final time. I used Kassandra powder over all the raw surfaces to help prevent seroma formation. We then closed the wound in multiple layers using 0 Vicryl for deep layers 2-0 Vicryl for mid layers and 4-0 Monocryl for skin. Sterile dressing and an abdominal binder were placed. The patient was awaken extubated and transferred to recovery in stable condition. My physician's family and divorce legal assistant was present throughout the case. He was instrumental in exposure throughout the procedure. He also helped with wound closure and dressing placement. I attest to the content of the Intraoperative Record and any orders documented therein. Any exceptions are noted below.
[2017-12-19] MEDS ORDERED: ARISTA ABSORBABLE HEMOSTAT 3GM TOP ONE (08:39)
[2017-12-19] MEDS: FLUTICASONE/SALMETEROL (ADVAIR) 500/50 INH 14 PUFF INH SCH ×2 (09:00→21:10)
[2017-12-19] MEDS ORDERED: LABETALOL HCL IV 5 MG/ML 20ML IV ONE (09:07)
[2017-12-19] MEDS: FENTANYL CITRATE INJ 50 MCG/1 ML 2 ML VIAL IV PRN ×3 (09:16→09:31)
--- NOTE | 2017-12-19 09:49 | Anesthesiology Progress Note ---
Anesthesia Post Op Note Date & Time Dec 19, 2017 at 09:48 Vital Signs Pain Intensity: 3 Vital Signs Past 12 Hours Date Time Temp Pulse Resp B/P (MAP) Pulse Ox O2 Delivery O2 Flow Rate FiO2 12/19/17 09:40 74 20 146/81 95 Nasal Cannula 2 12/19/17 09:30 74 20 135/83 95 Nasal Cannula 2 12/19/17 09:20 74 20 151/89 96 Nasal Cannula 2 12/19/17 09:10 75 20 154/91 97 Oxymask 10 12/19/17 09:00 75 20 148/85 97 Oxymask 10 12/19/17 08:53 37.5 76 16 146/74 96 Oxymask 1 12/19/17 06:26 37.0 97 20 192/81 (118) 92 Room Air 12/19/17 00:20 Room Air 12/18/17 23:02 37.1 101 18 148/72 (97) 93 Room Air Notes Mental Status: alert / awake / arousable, participated in evaluation Pt Amnestic to Procedure: Yes Nausea / Vomiting: adequately controlled Pain: adequately controlled Airway Patency, RR, SpO2: stable & adequate BP & HR: stable & adequate Hydration State: stable & adequate Anesthetic Complications: no major complications apparent
[2017-12-19 10:36] LABS: BASO % 0.2 %; BASO ABS # 0.02 K/uL (0-0.2); EOS % 0.4 %; EOS ABS # 0.05 K/uL (0-0.5); HEMATOCRIT 38.6 % (37-47); HEMOGLOBIN 13.2 g/dL (12.0-16.0); IG# 0.04 K/uL (0.00-0.02); LYMPH % 7.6 %; LYMPH ABS # 0.89 K/uL (1.2-3.4); MEAN CELL VOLUME 91.7 fL (80-100); MEAN CORPUSCULAR HEMOGLOBIN 31.4 pg (25-34); MEAN CORPUSCULAR HGB CONC 34.2 g/dl (32-36); MONO % 6.8 %; NEUT % 84.7 %; NEUT ABS # 9.89 K/uL (1.4-6.5); PLATELET COUNT 314 K/uL (130-400); RED CELL DISTRIBUTION WIDTH CV 13.6 % (11.5-14.5); RED CELL DISTRIBUTION WIDTH SD 45.5 fL (36.4-46.3); WHITE BLOOD COUNT 11.69 K/uL (4.8-10.8)
[2017-12-19] MEDS: D5NSS + 20MEQ KCL 1,000 ML IV SCH ×2 (10:39→21:20)
[2017-12-19] MEDS: HYDROmorphone INJ 0.5 MG/0.5 ML SYR IV PRN ×3 (10:47→21:15)
[2017-12-19 10:58] LABS: CALCIUM 8.2 mg/dl (8.5-10.1); CREATININE 0.42 mg/dl (0.60-1.20); POTASSIUM 3.4 mmol/L (3.5-5.1)
--- NOTE | 2017-12-19 14:12 | Hospitalist Progress Note ---
Hospitalist Progress Note Date of Service Dec 19, 2017. (Felecia Rowley ., TASHA) Subjective Pt evaluation today including: conversation w/ patient, physical exam, lab review, review of studies, review of inpatient medication list Voiding: woodall catheter in place Patient resting in bed. Feeling well after surgery. Pain currently 0/10. No flatus/BM postop. NG tube in place. Patient denies any fever, chills, sweats, lightheadedness, dizziness, vision changes, CP, palpitations, edema, SOB, wheezing, cough, abdominal pain, nausea, vomiting, diarrhea, urinary symptoms, melena, numbness/tingling, weakness, muscle/joint pain, anxiety/depression, active bleeding, or new skin discoloration/changes. (Felecia Rowley ., JENNC) Medications Current Inpatient Medications Medications (Trade) Dose Ordered Sig/Hi Route Start Time Stop Time Status Last Admin Dose Admin Ioversol (Optiray 320) 100 ml UD PRN IV 12/18/17 16:45 12/22/17 16:44 Heparin Sodium (Porcine) (Heparin Sq 5000 Unit/0.5ml) 5,000 unit Q8H SQ 12/19/17 06:00 01/18/18 05:59 12/19/17 13:46 5,000 UNIT Ondansetron HCl (Zofran Inj) 4 mg Q6H PRN IV 12/18/17 19:30 01/17/18 19:29 12/19/17 04:21 4 MG Potassium Chloride/Dextrose/ Sod Cl 1,000 ml @ 100 mls/hr Q10H IV 12/18/17 20:45 01/17/18 20:44 12/19/17 10:39 100 MLS/HR Albuterol (Ventolin Hfa Inhaler) 2 puffs Q4H PRN INH 12/18/17 20:45 01/17/18 20:44 Salmeterol Xinafoate/ Fluticasone (Advair Diskus 500/50 Inh) 1 puff Q12H INH 12/18/17 21:00 01/17/18 20:59 12/18/17 21:43 1 PUFF Hydralazine HCl (HydrALAZINE INJ) 10 mg Q6 PRN IV. 12/18/17 19:30 01/17/18 19:29 12/18/17 21:44 10 MG Miscellaneous (Iv Fluids Completed) 1 ea PRN PRN N/A 12/18/17 21:00 12/18/18 20:59 Cefazolin Sodium (Ancef 2000mg Iv Push) 2,000 mg PREOP IV 12/19/17 06:00 12/19/17 18:00 Hydromorphone HCl (Dilaudid Inj) 0.5 mg Q1H PRN IV 12/19/17 09:00 01/02/18 08:59 12/19/17 10:47 0.5 MG Ephedrine Sulfate (EpHEDrine SULFATE INJ) 5 mg Q5M PRN IV 12/19/17 09:45 12/19/17 14:45 Atropine Sulfate (Atropine Sulfate 0.1mg/ml Inj) 0.5 mg Q1M PRN IV 12/19/17 09:45 12/19/17 14:45 (Felecia Rowley, TASHA) Objective Vital Signs Date Time Temp Pulse Resp B/P (MAP) Pulse Ox O2 Delivery O2 Flow Rate FiO2 12/19/17 13:37 36.8 70 16 160/81 (107) 96 Nasal Cannula 3.0 12/19/17 12:10 36.7 73 16 146/80 (102) 96 Nasal Cannula 3.0 12/19/17 11:23 95 Nasal Cannula 3.0 12/19/17 11:18 36.9 74 14 147/73 (97) 95 Nasal Cannula 3.0 12/19/17 10:40 36.8 73 14 147/77 (100) 95 Nasal Cannula 3.0 12/19/17 10:10 94 Nasal Cannula 2.0 12/19/17 10:10 Room Air 12/19/17 10:10 36.9 75 14 151/81 (104) 94 Nasal Cannula 3.0 12/19/17 09:50 36.8 73 18 140/88 94 Nasal Cannula 2 12/19/17 09:40 74 20 146/81 95 Nasal Cannula 2 12/19/17 09:30 74 20 135/83 95 Nasal Cannula 2 12/19/17 09:20 74 20 151/89 96 Nasal Cannula 2 12/19/17 09:10 75 20 154/91 97 Oxymask 10 12/19/17 09:00 75 20 148/85 97 Oxymask 10 12/19/17 08:53 37.5 76 16 146/74 96 Oxymask 1 12/19/17 06:26 37.0 97 20 192/81 (118) 92 Room Air 12/19/17 00:20 Room Air 12/18/17 23:02 37.1 101 18 148/72 (97) 93 Room Air 12/18/17 20:30 36.8 106 20 186/82 93 Room Air 12/18/17 20:17 36.9 98 16 166/83 96 Room Air 12/18/17 18:54 105 15 156/88 95 Room Air 12/18/17 16:28 99 12/18/17 16:21 193/93 12/18/17 16:07 96 25 97 12/18/17 16:02 203/96 12/18/17 15:59 195/94 12/18/17 15:37 90 23 95 12/18/17 15:34 36.5 12/18/17 15:32 170/79 12/18/17 15:12 93 25 93 12/18/17 15:01 199/128 12/18/17 14:42 85 24 93 12/18/17 14:12 89 24 (Felecia Rowley ., PA-C) Physical Exam General Appearance: no apparent distress Eyes: normal inspection, PERRL ENT: hearing grossly normal, + pertinent finding (NG tube ) Neck: supple Respiratory/Chest: lungs clear, no respiratory distress, no accessory muscle use Cardiovascular: regular rate, rhythm Abdomen: normal bowel sounds, soft, + tenderness (appropriately tender around incision sites ) Extremities: no pedal edema, no calf tenderness Neurologic/Psychiatric: alert, normal mood/affect, oriented x 3 Skin: normal color, warm/dry, no rash (Felecia Rowley, PA-C) Laboratory Results Last 24 Hours Test 12/18/17 14:18 12/18/17 14:19 12/18/17 14:23 12/18/17 14:30 White Blood Count 10.70 K/uL Red Blood Count 4.62 M/uL Hemoglobin 14.7 g/dL Hematocrit 42.3 % Mean Corpuscular Volume 91.6 fL Mean Corpuscular Hemoglobin 31.8 pg Mean Corpuscular Hemoglobin Concent 34.8 g/dl Platelet Count 340 K/uL Mean Platelet Volume 9.4 fL Neutrophils (%) (Auto) 74.8 % Lymphocytes (%) (Auto) 13.3 % Monocytes (%) (Auto) 10.8 % Eosinophils (%) (Auto) 0.5 % Basophils (%) (Auto) 0.3 % Neutrophils # (Auto) 8.01 K/uL Lymphocytes # (Auto) 1.42 K/uL Monocytes # (Auto) 1.16 K/uL Eosinophils # (Auto) 0.05 K/uL Basophils # (Auto) 0.03 K/uL RDW Standard Deviation 44.4 fL RDW Coefficient of Variation 13.3 % Immature Granulocyte % (Auto) 0.3 % Immature Granulocyte # (Auto) 0.03 K/uL Sodium Level 135 mmol/L Potassium Level 3.7 mmol/L Chloride Level 101 mmol/L Carbon Dioxide Level 25 mmol/L Anion Gap 9.0 mmol/L Blood Urea Nitrogen 20 mg/dl Creatinine 0.55 mg/dl Est Creatinine Clear Calc Drug Dose 74.0 ml/min Estimated GFR () 104.9 Estimated GFR (Non- 90.5 BUN/Creatinine Ratio 36.3 Random Glucose 84 mg/dl Calcium Level 8.4 mg/dl Magnesium Level 2.1 mg/dl Total Bilirubin 0.7 mg/dl Aspartate Amino Transf (AST/SGOT) 14 U/L Alanine Aminotransferase (ALT/SGPT) 14 U/L Alkaline Phosphatase 47 U/L Troponin I 0.031 ng/ml Pro-B-Type Natriuretic Peptide 1047 pg/ml Total Protein 6.6 gm/dl Albumin 2.8 gm/dl Globulin 3.8 gm/dl Albumin/Globulin Ratio 0.7 Lipase 425 U/L Thyroid Stimulating Hormone (TSH) 0.563 uIu/ml Prothrombin Time 12.4 SECONDS Prothromb Time International Ratio 1.2 Bedside Lactic Acid Venous 1.00 mmol/L Urine Color YELLOW Urine Appearance CLEAR Urine pH 5.0 Urine Specific [place] 1.029 Urine Protein NEG Urine Glucose (UA) NEG Urine Ketones 3+ Urine Occult Blood TRACE Urine Nitrite NEG Urine Bilirubin NEG Urine Urobilinogen NEG Urine Leukocyte Esterase NEG Urine WBC (Auto) 1-5 /hpf Urine RBC (Auto) 0-4 /hpf Urine Hyaline Casts (Auto) 1-5 /lpf Urine Epithelial Cells (Auto) 5-10 /lpf Urine Bacteria (Auto) NEG Test 3/28/18 10:15 White Blood Count 11.69 K/uL Red Blood Count 4.21 M/uL Hemoglobin 13.2 g/dL Hematocrit 38.6 % Mean Corpuscular Volume 91.7 fL Mean Corpuscular Hemoglobin 31.4 pg Mean Corpuscular Hemoglobin Concent 34.2 g/dl Platelet Count 314 K/uL Mean Platelet Volume 9.0 fL Neutrophils (%) (Auto) 84.7 % Lymphocytes (%) (Auto) 7.6 % Monocytes (%) (Auto) 6.8 % Eosinophils (%) (Auto) 0.4 % Basophils (%) (Auto) 0.2 % Neutrophils # (Auto) 9.89 K/uL Lymphocytes # (Auto) 0.89 K/uL Monocytes # (Auto) 0.80 K/uL Eosinophils # (Auto) 0.05 K/uL Basophils # (Auto) 0.02 K/uL RDW Standard Deviation 45.5 fL RDW Coefficient of Variation 13.6 % Immature Granulocyte % (Auto) 0.3 % Immature Granulocyte # (Auto) 0.04 K/uL Sodium Level 138 mmol/L Potassium Level 3.4 mmol/L Chloride Level 106 mmol/L Carbon Dioxide Level 24 mmol/L Anion Gap 8.0 mmol/L Blood Urea Nitrogen 13 mg/dl Creatinine 0.42 mg/dl Est Creatinine Clear Calc Drug Dose 96.9 ml/min Estimated GFR () 114.6 Estimated GFR (Non- 98.9 BUN/Creatinine Ratio 31.3 Random Glucose 118 mg/dl Calcium Level 8.2 mg/dl Magnesium Level 2.1 mg/dl (Felecia Rowley, PA-C) Assessment and Plan 77 yo female who is s/p incisional hernia repair, went home from hospital on . She said she has not been able to eat since going home, persistent nausea. She has vomited occasionally, last time she vomited was 2 days prior to admission. She had two bowel movements, one on 12/15 and one on 12/16, no diarrhea. She is passing flatus. She did not attempt to eat today due to pain , nausea and fear of vomiting. Her abdomen is more distended than usual and she has some epigastric pain. In the ED her lab work was normal, CT showed a partial small bowel obstruction. Discussed with general surgery, they asked medicine to admit since this will likely not be a surgical problem. Partial SBO secondary to recurrent ventral hernia s/p incisional hernia repair x3 on 12/13, s/p repair of recurrent ventral hernia on 12/[address] Scruggs: - Admitted to med/surg - Follow postop CBC and PRP - Lipase mildly elevated at 425- repeat pending - General surgery consulted, appreciate recommendations- IV Dilaudid PRN for pain management, NG tube placed, advance diet as per surgical team Mild hypokalemia: Continue IVF + KCL supplement- follow PRP and replace PRN Asthma- STABLE: Continue Advair BID and Ventolin PRN HLD: Continue Lipitor once tolerating PO Depression: Resume Zoloft once tolerating PO GERD: Resume Zantac once tolerating PO DVT prophylaxis: Heparin SQ TID Code status: LEVEL I, FULL Dispo: From home- no discharge needs anticipated- discharge to home once medically stable (Felecia Rowley, TASHA) Reviewed: Pt Seen/Exam by Me (Aimee Vasquez MD) History Physician Paste Up Copy Camera Operator Supervision Note: I interviewed and examined the patient. Discussed with ELODIA Rowley and agree with findings and plan as documented in the note. Any exceptions or clarifications are listed here: Pt feeling much better now since having recurrent ventral hernia repair today. Is not sure if she has passed flatus today, is feelin ghungry, no further abd pain except when surgical site touched. No CP or SOB. Vitals reviewed NAD, AAOx3 RRR no mgr CTAB no wcr Abd +BS, soft, ND, abd binder in place, +TTP periumbilical region over incisional site Ext no calf tenderness, no edema 77 yo female here with SBO and recurrent ventral hernia 4 days post-op from ventral hernia repair. Now s/p recurrent repair of hernia and SBO resolved. NGT removed, feeling hungry. -Will defer to Gen Surgery for advancement of diet-on sips and chips now -follow chemistry, CBC -no other acute issues Documented By: Aimee Vasquez (Aimee Vasquez MD)
[2017-12-20] MEDS: HYDROmorphone INJ 0.5 MG/0.5 ML SYR IV PRN ×6 (01:30→19:52)
[2017-12-20 03:26] VITALS: BP 116/62; PULSE 77; TEMP 36.9; O2SAT 92
[2017-12-20] MEDS: D5NSS + 20MEQ KCL 1,000 ML IV SCH ×2 (05:40→16:14)
[2017-12-20] MEDS: HEPARIN SOD 5000 UNIT/0.5 ML CARP SQ SCH ×3 (05:43→22:04)
[2017-12-20 07:15] VITALS: BP_SYST 155; BP_SYST 162; BP_DIAS 76; BP_DIAS 78; PULSE 68; TEMP 37.1; O2SAT 94
--- NOTE | 2017-12-20 09:06 | Surgery Progress Note ---
Surgery Progress Note Date of Service Dec 20, 2017. Subjective Post OP Day: 1 + flatus, + pain controlled, + diet, No bowel movement, No nausea (belching) Objective Vital Signs: Date Time Temp Pulse Resp B/P (MAP) Pulse Ox O2 Delivery O2 Flow Rate FiO2 12/20/17 07:45 Room Air 12/20/17 07:15 37.1 68 16 162/78 (106) 94 Room Air 155/76 (102) 12/20/17 03:26 36.9 77 16 116/62 (80) 92 Room Air 12/19/17 23:30 Room Air 12/19/17 23:14 37.0 75 16 146/84 (104) 93 Room Air 12/19/17 15:17 36.6 69 18 160/77 (104) 98 Nasal Cannula 2.0 12/19/17 13:37 36.8 70 16 160/81 (107) 96 Nasal Cannula 3.0 12/19/17 12:10 36.7 73 16 146/80 (102) 96 Nasal Cannula 3.0 12/19/17 11:23 95 Nasal Cannula 3.0 12/19/17 11:18 36.9 74 14 147/73 (97) 95 Nasal Cannula 3.0 12/19/17 10:40 36.8 73 14 147/77 (100) 95 Nasal Cannula 3.0 12/19/17 10:10 94 Nasal Cannula 2.0 12/19/17 10:10 Room Air 12/19/17 10:10 36.9 75 14 151/81 (104) 94 Nasal Cannula 3.0 12/19/17 09:50 36.8 73 18 140/88 94 Nasal Cannula 2 12/19/17 09:40 74 20 146/81 95 Nasal Cannula 2 12/19/17 09:30 74 20 135/83 95 Nasal Cannula 2 12/19/17 09:20 74 20 151/89 96 Nasal Cannula 2 12/19/17 09:10 75 20 154/91 97 Oxymask 10 Physical Exam: urine output (200) Abdomen: non distended, soft Laboratory Results: Results Past 24 Hours Test 12/19/17 10:15 12/20/17 04:44 Range/Units White Blood Count 11.69 4.8-10.8 K/uL Red Blood Count 4.21 4.2-5.4 M/uL Hemoglobin 13.2 12.0-16.0 g/dL Hematocrit 38.6 37-47 % Mean Corpuscular Volume 91.7 80-100 fL Mean Corpuscular Hemoglobin 31.4 25-34 pg Mean Corpuscular Hemoglobin Concent 34.2 32-36 g/dl Platelet Count 314 130-400 K/uL Mean Platelet Volume 9.0 7.4-10.4 fL Neutrophils (%) (Auto) 84.7 % Lymphocytes (%) (Auto) 7.6 % Monocytes (%) (Auto) 6.8 % Eosinophils (%) (Auto) 0.4 % Basophils (%) (Auto) 0.2 % Neutrophils # (Auto) 9.89 1.4-6.5 K/uL Lymphocytes # (Auto) 0.89 1.2-3.4 K/uL Monocytes # (Auto) 0.80 0.11-0.59 K/uL Eosinophils # (Auto) 0.05 0-0.5 K/uL Basophils # (Auto) 0.02 0-0.2 K/uL RDW Standard Deviation 45.5 36.4-46.3 fL RDW Coefficient of Variation 13.6 11.5-14.5 % Immature Granulocyte % (Auto) 0.3 % Immature Granulocyte # (Auto) 0.04 0.00-0.02 K/uL Sodium Level 138 136-145 mmol/L Potassium Level 3.4 3.5-5.1 mmol/L Chloride Level 106 98-107 mmol/L Carbon Dioxide Level 24 21-32 mmol/L Anion Gap 8.0 3-11 mmol/L Blood Urea Nitrogen 13 7-18 mg/dl Creatinine 0.42 0.60-1.20 mg/dl Est Creatinine Clear Calc Drug Dose 96.9 ml/min Estimated GFR () 114.6 Estimated GFR (Non- 98.9 BUN/Creatinine Ratio 31.3 10-20 Random Glucose 118 70-99 mg/dl Calcium Level 8.2 8.5-10.1 mg/dl Magnesium Level 2.1 1.8-2.4 mg/dl Lipase 376 73-393 U/L Assessment & Plan repair of recurrent ventral hernia causing SBO will start on clears resume po meds ambulate labs pending
[2017-12-20] MEDS: FLUTICASONE/SALMETEROL (ADVAIR) 500/50 INH 14 PUFF INH SCH ×2 (09:09→21:56)
[2017-12-20] MEDS ORDERED: PANTOprazole SOD 40 MG TAB PO ONE (09:30)
[2017-12-20 10:03] LABS: HEMATOCRIT 38.6 % (37-47); MEAN CELL VOLUME 93.2 fL (80-100); MEAN CORPUSCULAR HEMOGLOBIN 31.4 pg (25-34); MEAN CORPUSCULAR HGB CONC 33.7 g/dl (32-36); MEAN PLATELET VOLUME 9.1 fL (7.4-10.4); PLATELET COUNT 331 K/uL (130-400); RED CELL DISTRIBUTION WIDTH CV 13.8 % (11.5-14.5); RED CELL DISTRIBUTION WIDTH SD 47.2 fL (36.4-46.3); WHITE BLOOD COUNT 11.75 K/uL (4.8-10.8)
[2017-12-20 10:31] LABS: CALCIUM 8.1 mg/dl (8.5-10.1); CREATININE 0.56 mg/dl (0.60-1.20); POTASSIUM 3.3 mmol/L (3.5-5.1)
--- NOTE | 2017-12-20 10:58 | Hospitalist Progress Note ---
Hospitalist Progress Note Date of Service Dec 20, 2017. (Felecia Rowley ., PA-C) Subjective Pt evaluation today including: conversation w/ patient, physical exam, lab review, review of inpatient medication list Voiding: no voiding problems Patient sitting in bedside chair. Feeling well. Pain well controlled. Diet advanced to clear liquids this AM by surgery- tolerating well. +flatus, no BM postop. Encouraged incentive spirometer and ambulation throughout hallways. Patient denies any fever, chills, sweats, lightheadedness, dizziness, vision changes, CP, palpitations, edema, SOB, wheezing, cough, abdominal pain, nausea, vomiting, diarrhea, urinary symptoms, melena, numbness/tingling, weakness, muscle/joint pain, anxiety/depression, active bleeding, or new skin discoloration/changes. (Felecia Rowley ., PA-C) Medications Current Inpatient Medications Medications (Trade) Dose Ordered Sig/Hi Route Start Time Stop Time Status Last Admin Dose Admin Ioversol (Optiray 320) 100 ml UD PRN IV 12/18/17 16:45 12/22/17 16:44 Heparin Sodium (Porcine) (Heparin Sq 5000 Unit/0.5ml) 5,000 unit Q8H SQ 12/19/17 06:00 01/18/18 05:59 12/20/17 05:43 5,000 UNIT Ondansetron HCl (Zofran Inj) 4 mg Q6H PRN IV 12/18/17 19:30 01/17/18 19:29 12/19/17 04:21 4 MG Potassium Chloride/Dextrose/ Sod Cl 1,000 ml @ 100 mls/hr Q10H IV 12/18/17 20:45 01/17/18 20:44 12/20/17 05:40 100 MLS/HR Albuterol (Ventolin Hfa Inhaler) 2 puffs Q4H PRN INH 12/18/17 20:45 01/17/18 20:44 Salmeterol Xinafoate/ Fluticasone (Advair Diskus 500/50 Inh) 1 puff Q12H INH 12/18/17 21:00 01/17/18 20:59 12/20/17 09:09 1 PUFF Hydralazine HCl (HydrALAZINE INJ) 10 mg Q6 PRN IV. 12/18/17 19:30 01/17/18 19:29 12/18/17 21:44 10 MG Miscellaneous (Iv Fluids Completed) 1 ea PRN PRN N/A 12/18/17 21:00 12/18/18 20:59 Hydromorphone HCl (Dilaudid Inj) 0.5 mg Q1H PRN IV 12/19/17 09:00 01/02/18 08:59 12/20/17 10:41 0.5 MG Ranitidine HCl (zANTac TAB) 150 mg HS PO 12/20/17 21:00 01/19/18 20:59 Sertraline HCl (Zoloft Tab) 150 mg QAM PO 12/21/17 09:00 01/20/18 08:59 Pantoprazole Sodium (Protonix Tab) 40 mg QAM PO 12/21/17 09:00 12/23/17 10:00 (Felecia Rowley ., PA-C) Objective Vital Signs Date Time Temp Pulse Resp B/P (MAP) Pulse Ox O2 Delivery O2 Flow Rate FiO2 12/20/17 07:45 Room Air 12/20/17 07:15 37.1 68 16 162/78 (106) 94 Room Air 155/76 (102) 12/20/17 03:26 36.9 77 16 116/62 (80) 92 Room Air 12/19/17 23:30 Room Air 12/19/17 23:14 37.0 75 16 146/84 (104) 93 Room Air 12/19/17 15:17 36.6 69 18 160/77 (104) 98 Nasal Cannula 2.0 12/19/17 13:37 36.8 70 16 160/81 (107) 96 Nasal Cannula 3.0 12/19/17 12:10 36.7 73 16 146/80 (102) 96 Nasal Cannula 3.0 12/19/17 11:23 95 Nasal Cannula 3.0 12/19/17 11:18 36.9 74 14 147/73 (97) 95 Nasal Cannula 3.0 (Felecia Rowley ., PA-C) Physical Exam General Appearance: no apparent distress Eyes: normal inspection, PERRL ENT: hearing grossly normal Neck: supple Respiratory/Chest: lungs clear, no respiratory distress, no accessory muscle use Cardiovascular: regular rate, rhythm Abdomen: normal bowel sounds, soft, + pertinent finding (abdominal binder on ) Extremities: no pedal edema, no calf tenderness Neurologic/Psychiatric: alert, normal mood/affect, oriented x 3 Skin: normal color, warm/dry, no rash (Felecia Rowley ., PA-C) Laboratory Results Last 24 Hours Test 12/20/17 09:49 White Blood Count 11.75 K/uL Red Blood Count 4.14 M/uL Hemoglobin 13.0 g/dL Hematocrit 38.6 % Mean Corpuscular Volume 93.2 fL Mean Corpuscular Hemoglobin 31.4 pg Mean Corpuscular Hemoglobin Concent 33.7 g/dl RDW Standard Deviation 47.2 fL RDW Coefficient of Variation 13.8 % Platelet Count 331 K/uL Mean Platelet Volume 9.1 fL Sodium Level 139 mmol/L Potassium Level 3.3 mmol/L Chloride Level 106 mmol/L Carbon Dioxide Level 28 mmol/L Anion Gap 5.0 mmol/L Blood Urea Nitrogen 10 mg/dl Creatinine 0.56 mg/dl Est Creatinine Clear Calc Drug Dose 72.7 ml/min Estimated GFR () 104.2 Estimated GFR (Non- 89.9 BUN/Creatinine Ratio 17.1 Random Glucose 127 mg/dl Calcium Level 8.1 mg/dl (Felecia Rowley ., PA-C) Assessment and Plan 77 yo female who is s/p incisional hernia repair, went home from hospital on . She said she has not been able to eat since going home, persistent nausea. She has vomited occasionally, last time she vomited was 2 days prior to admission. She had two bowel movements, one on 12/15 and one on 12/16, no diarrhea. She is passing flatus. She did not attempt to eat today due to pain , nausea and fear of vomiting. Her abdomen is more distended than usual and she has some epigastric pain. In the ED her lab work was normal, CT showed a partial small bowel obstruction. Discussed with general surgery, they asked medicine to admit since this will likely not be a surgical problem. Partial SBO secondary to recurrent ventral hernia s/p incisional hernia repair x3 on 12/13, s/p repair of recurrent ventral hernia on 12/[address] Scruggs: - Admitted to med/surg - Follow postop CBC and PRP - Lipase mildly elevated at 425- repeat 376 - General surgery consulted, appreciate recommendations- IV Dilaudid PRN for pain management, advancing diet as per surgery Mild hypokalemia: Continue IVF + KCL supplement, KCL 20 mEq x1 today- follow PRP and replace PRN Asthma- STABLE: Continue Advair BID and Ventolin PRN HLD: Resume Lipitor once tolerating full PO intake Depression: Continue Zoloft GERD: Continue Zantac + Protonix DVT prophylaxis: Heparin SQ TID Code status: LEVEL I, FULL Dispo: From home- planning for home w/ [facility]- CM following (Felecia Rowley, TASHA) Reviewed: Pt Seen/Exam by Me (Aimee Vasquez MD) History Physician Slasher Supervision Note: I interviewed and examined the patient. Discussed with ELODIA Rowley and agree with findings and plan as documented in the note. Any exceptions or clarifications are listed here: feeling much improved, tolerating clear liquids diet, having some incisional site pain. Denies chest pain or shortness of breath. Vitals reviewed NAD, AAOx3 RRR no mgr CTAB no wcr Abd +BS, soft, ND, binder has been removed, incision is clean dry and intact, there is appropriate positive tenderness to palpation around the incision site, without guarding or rebound tenderness Ext no calf tenderness, no edema 77 yo female here with SBO and recurrent ventral hernia 4 days post-op from ventral hernia repair. Now postop day #1 s/p recurrent repair of hernia and SBO resolved. Tolerating diet -Will defer to Gen Surgery for advancement of diet -follow chemistry, CBC, replace potassium -no other acute issues -Expect discharged home in the next 1-2 days Documented By: Aimee Vasquez (Aimee Vasquez MD)
[2017-12-20] MEDS ORDERED: POTASSIUM CHLORIDE 20 MEQ TABCR PO ONE (11:00)
[2017-12-20 12:37] VITALS: BP 148/89; PULSE 73; TEMP 36.8; O2SAT 93
[2017-12-20 15:56] VITALS: BP 122/55; PULSE 67; TEMP 36.9; O2SAT 92
[2017-12-20] MEDS: RANITIDINE HCL 150 MG TAB PO SCH (21:56)
[2017-12-20 23:03] VITALS: BP 139/80; PULSE 83; TEMP 37.1; O2SAT 96
[2017-12-21] MEDS: D5NSS + 20MEQ KCL 1,000 ML IV SCH (03:44)
[2017-12-21] MEDS: HEPARIN SOD 5000 UNIT/0.5 ML CARP SQ SCH ×3 (05:49→21:05)
[2017-12-21 07:16] VITALS: BP 184/89; PULSE 91; TEMP 37.4; O2SAT 98
[2017-12-21 08:44] LABS: CALCIUM 8.4 mg/dl (8.5-10.1); CREATININE 0.47 mg/dl (0.60-1.20); POTASSIUM 3.6 mmol/L (3.5-5.1)
[2017-12-21] MEDS: FLUTICASONE/SALMETEROL (ADVAIR) 500/50 INH 14 PUFF INH SCH ×2 (09:12→21:02)
[2017-12-21] MEDS: PANTOprazole SOD 40 MG TAB PO SCH (09:13)
[2017-12-21] MEDS: SERTRALINE HCL 50 MG TAB PO SCH (09:13)
--- NOTE | 2017-12-21 09:56 | Surgery Progress Note ---
Surgery Progress Note Date of Service Dec 21, 2017. Subjective Post OP Day: 2 feeling better each day. tired of clear liquids/broth. +passed large amount of flatus Objective Vital Signs: Date Time Temp Pulse Resp B/P (MAP) Pulse Ox O2 Delivery O2 Flow Rate FiO2 12/21/17 08:00 Room Air 12/21/17 07:16 37.4 91 20 184/89 (120) 98 Room Air 12/20/17 23:45 Room Air 12/20/17 23:03 37.1 83 16 139/80 (99) 96 Room Air 12/20/17 19:10 Room Air 12/20/17 16:00 Room Air 12/20/17 15:56 36.9 67 17 122/55 (77) 92 Room Air 12/20/17 12:37 36.8 73 16 148/89 (108) 93 Room Air General Appearance: no apparent distress Respiratory/Chest: no respiratory distress, no accessory muscle use Abdomen: non distended, soft Incision(s): clean, dry, intact, no erythema Laboratory Results: Results Past 24 Hours Test 12/21/17 07:28 Range/Units Sodium Level 137 136-145 mmol/L Potassium Level 3.6 3.5-5.1 mmol/L Chloride Level 103 98-107 mmol/L Carbon Dioxide Level 28 21-32 mmol/L Anion Gap 6.0 3-11 mmol/L Blood Urea Nitrogen 4 7-18 mg/dl Creatinine 0.47 0.60-1.20 mg/dl Est Creatinine Clear Calc Drug Dose 86.6 ml/min Estimated GFR () 110.4 Estimated GFR (Non- 95.3 BUN/Creatinine Ratio 8.2 10-20 Random Glucose 121 70-99 mg/dl Calcium Level 8.4 8.5-10.1 mg/dl Assessment & Plan POD#2 from repair of recurrent hernia/sbo doing ok awaiting bowel fx pain controlled will advance to full liquids Dr. Montez covering for weekend.
[2017-12-21] MEDS ORDERED: NURSING VERBAL MED ORDER ONE (10:15)
[2017-12-21] MEDS: HYDROmorphone INJ 0.5 MG/0.5 ML SYR IV PRN ×3 (10:15→21:02)
--- NOTE | 2017-12-21 13:40 | Hospitalist Progress Note ---
Hospitalist Progress Note Date of Service Dec 21, 2017. (Felecia Rowley ., PA-C) Subjective Pt evaluation today including: conversation w/ patient, physical exam, lab review, review of inpatient medication list Voiding: no voiding problems Patient ambulating throughout room without difficultly. Tolerating diet- surgery advancing to full liquids. Patient requesting d/c IVF as "she is tired of going the bathroom every 30 minutes and drinking lots." Abdominal pain is well controlled. +flatus, no BM yet. Patient denies any fever, chills, sweats, lightheadedness, dizziness, vision changes, CP, palpitations, edema, SOB, wheezing, cough, nausea, vomiting, diarrhea, urinary symptoms, melena, numbness/tingling, weakness, muscle/joint pain, anxiety/depression, active bleeding, or new skin discoloration/changes. (Felecia Rowley ., PA-C) Medications Current Inpatient Medications Medications (Trade) Dose Ordered Sig/Hi Route Start Time Stop Time Status Last Admin Dose Admin Ioversol (Optiray 320) 100 ml UD PRN IV 12/18/17 16:45 12/22/17 16:44 Heparin Sodium (Porcine) (Heparin Sq 5000 Unit/0.5ml) 5,000 unit Q8H SQ 12/19/17 06:00 01/18/18 05:59 12/21/17 05:49 5,000 UNIT Ondansetron HCl (Zofran Inj) 4 mg Q6H PRN IV 12/18/17 19:30 01/17/18 19:29 12/19/17 04:21 4 MG Potassium Chloride/Dextrose/ Sod Cl 1,000 ml @ 100 mls/hr Q10H IV 12/18/17 20:45 01/17/18 20:44 12/21/17 03:44 100 MLS/HR Albuterol (Ventolin Hfa Inhaler) 2 puffs Q4H PRN INH 12/18/17 20:45 01/17/18 20:44 Salmeterol Xinafoate/ Fluticasone (Advair Diskus 500/50 Inh) 1 puff Q12H INH 12/18/17 21:00 01/17/18 20:59 12/21/17 09:12 1 PUFF Hydralazine HCl (HydrALAZINE INJ) 10 mg Q6 PRN IV. 12/18/17 19:30 01/17/18 19:29 12/18/17 21:44 10 MG Miscellaneous (Iv Fluids Completed) 1 ea PRN PRN N/A 12/18/17 21:00 12/18/18 20:59 Hydromorphone HCl (Dilaudid Inj) 0.5 mg Q1H PRN IV 12/19/17 09:00 01/02/18 08:59 12/20/17 19:52 0.5 MG Ranitidine HCl (zANTac TAB) 150 mg HS PO 12/20/17 21:00 01/19/18 20:59 12/20/17 21:56 150 MG Sertraline HCl (Zoloft Tab) 150 mg QAM PO 12/21/17 09:00 01/20/18 08:59 12/21/17 09:13 150 MG Pantoprazole Sodium (Protonix Tab) 40 mg QAM PO 12/21/17 09:00 12/23/17 10:00 12/21/17 09:13 40 MG Miscellaneous Information (Nursing Verbal Med Order) 1 ea ONE ONCE N/A 12/21/17 10:15 12/21/17 10:16 UNV (Felecia Rowley PA-C) Objective Vital Signs Date Time Temp Pulse Resp B/P (MAP) Pulse Ox O2 Delivery O2 Flow Rate FiO2 12/21/17 08:00 Room Air 12/21/17 07:16 37.4 91 20 184/89 (120) 98 Room Air 12/20/17 23:45 Room Air 12/20/17 23:03 37.1 83 16 139/80 (99) 96 Room Air 12/20/17 19:10 Room Air 12/20/17 16:00 Room Air 12/20/17 15:56 36.9 67 17 122/55 (77) 92 Room Air 12/20/17 12:37 36.8 73 16 148/89 (108) 93 Room Air (Felecia Rowley PA-C) Physical Exam General Appearance: no apparent distress Eyes: normal inspection, PERRL ENT: hearing grossly normal Neck: supple Respiratory/Chest: lungs clear, no respiratory distress, no accessory muscle use Cardiovascular: regular rate, rhythm Abdomen: normal bowel sounds, soft, + tenderness (around incision site ), + pertinent finding (mid abdominal incision site C/D/I ) Extremities: no pedal edema, no calf tenderness Neurologic/Psychiatric: alert, normal mood/affect, oriented x 3 Skin: normal color, warm/dry, no rash (Felecia Rowley ., JENNC) Laboratory Results Last 24 Hours Test 12/21/17 07:28 Sodium Level 137 mmol/L Potassium Level 3.6 mmol/L Chloride Level 103 mmol/L Carbon Dioxide Level 28 mmol/L Anion Gap 6.0 mmol/L Blood Urea Nitrogen 4 mg/dl Creatinine 0.47 mg/dl Est Creatinine Clear Calc Drug Dose 86.6 ml/min Estimated GFR () 110.4 Estimated GFR (Non- 95.3 BUN/Creatinine Ratio 8.2 Random Glucose 121 mg/dl Calcium Level 8.4 mg/dl (Felecia Rowley ., JENNC) Assessment and Plan 77 yo female who is s/p incisional hernia repair, went home from hospital on . She said she has not been able to eat since going home, persistent nausea. She has vomited occasionally, last time she vomited was 2 days prior to admission. She had two bowel movements, one on 12/15 and one on 12/16, no diarrhea. She is passing flatus. She did not attempt to eat today due to pain , nausea and fear of vomiting. Her abdomen is more distended than usual and she has some epigastric pain. In the ED her lab work was normal, CT showed a partial small bowel obstruction. Discussed with general surgery, they asked medicine to admit since this will likely not be a surgical problem. Partial SBO secondary to recurrent ventral hernia s/p incisional hernia repair x3 on 12/13, s/p repair of recurrent ventral hernia on 12/[address] Scruggs: - Admitted to med/surg - Follow postop CBC and PRP - Lipase mildly elevated at 425- repeat 376 - IVF @ 100 ml/hr - General surgery consulted, appreciate recommendations- IV Dilaudid PRN for pain management, advancing diet as per surgery Mild hypokalemia- RESOLVED: Continue IVF + KCL supplement, KCL 20 mEq x1 today- follow PRP and replace PRN Asthma- STABLE: Continue Advair BID and Ventolin PRN HLD: Resume Lipitor once tolerating full PO intake Depression: Continue Zoloft GERD: Continue Zantac + Protonix DVT prophylaxis: Heparin SQ TID Code status: LEVEL I, FULL Dispo: From home- planning for home w/ HHS- CM following- hopeful discharge in the next 1-2 days (Felecia Rowley, TASHA) Reviewed: Pt Seen/Exam by Me (Aimee Vasquez MD) History Physician [employer] Sales Representative Supervision Note: I interviewed and examined the patient. Discussed with ELODIA Rowley and agree with findings and plan as documented in the note. Any exceptions or clarifications are listed here: Feeling well, passing a lot of flatus but no bowel movement yet. She is tolerating full liquids diet. Pain is controlled with pain medication. Denies shortness of breath or chest pain. Vitals reviewed NAD, AAOx3 RRR no mgr CTAB no wcr Abd +BS, soft, ND, incision is clean dry and intact, there is appropriate positive tenderness to palpation around the incision site, without guarding or rebound tenderness Ext no calf tenderness, no edema 77 yo female here with SBO and recurrent ventral hernia 4 days post-op from ventral incisional hernia repair. Now postop day #2 s/p recurrent repair of hernia and SBO resolved. Tolerating full liquids diet -Will defer to Gen Surgery for advancement of diet -Awaiting bowel movement prior to discharge -Hypokalemia is improved-tolerating a diet and will DC IV fluids at this time -no other acute issues -Expect discharge to home in the next 1-2 days Documented By: Aimee Vasquez (Aimee Vasquez MD)
[2017-12-21 14:32] VITALS: BP 152/81
[2017-12-21 15:05] VITALS: BP 154/82; PULSE 82; TEMP 36.7; O2SAT 95
[2017-12-21] MEDS: RANITIDINE HCL 150 MG TAB PO SCH (21:02)
[2017-12-21 23:02] VITALS: BP 136/66; PULSE 83; TEMP 37; O2SAT 93
[2017-12-22] MEDS: HEPARIN SOD 5000 UNIT/0.5 ML CARP SQ SCH ×3 (05:37→21:29)
--- NOTE | 2017-12-22 06:14 | Surgery Progress Note ---
Surgery Progress Note Date of Service Dec 22, 2017. Subjective awake , alert- min pain some flatus, advanced to full liquids Objective Vital Signs: Date Time Temp Pulse Resp B/P (MAP) Pulse Ox O2 Delivery O2 Flow Rate FiO2 12/21/17 23:58 Room Air 12/21/17 23:02 37.0 83 18 136/66 (89) 93 Room Air 12/21/17 15:50 Room Air 12/21/17 15:05 36.7 82 18 154/82 (106) 95 Room Air 12/21/17 14:32 152/81 (104) 12/21/17 08:00 Room Air 12/21/17 07:16 37.4 91 20 184/89 (120) 98 Room Air General Appearance: no apparent distress Respiratory/Chest: no respiratory distress Abdomen: + pertinent finding (++ bowel sounds, mild distention) Incision(s): intact Laboratory Results: Results Past 24 Hours Test 12/21/17 07:28 12/22/17 05:43 Range/Units Sodium Level 137 136-145 mmol/L Potassium Level 3.6 3.5-5.1 mmol/L Chloride Level 103 98-107 mmol/L Carbon Dioxide Level 28 21-32 mmol/L Anion Gap 6.0 3-11 mmol/L Blood Urea Nitrogen 4 7-18 mg/dl Creatinine 0.47 0.60-1.20 mg/dl Est Creatinine Clear Calc Drug Dose 86.6 ml/min Estimated GFR () 110.4 Estimated GFR (Non- 95.3 BUN/Creatinine Ratio 8.2 10-20 Random Glucose 121 70-99 mg/dl Calcium Level 8.4 8.5-10.1 mg/dl Assessment & Plan 12/22/17- good progress- cont full liquids for now ambulate- will need 1-2 more days in hospital
[2017-12-22 06:20] LABS: HEMATOCRIT 41.1 % (37-47); HEMOGLOBIN 14.2 g/dL (12.0-16.0); MEAN CELL VOLUME 91.9 fL (80-100); MEAN CORPUSCULAR HEMOGLOBIN 31.8 pg (25-34); MEAN CORPUSCULAR HGB CONC 34.5 g/dl (32-36); MEAN PLATELET VOLUME 9.4 fL (7.4-10.4); PLATELET COUNT 331 K/uL (130-400); RED CELL DISTRIBUTION WIDTH CV 13.5 % (11.5-14.5); RED CELL DISTRIBUTION WIDTH SD 45.1 fL (36.4-46.3); WHITE BLOOD COUNT 11.64 K/uL (4.8-10.8)
[2017-12-22 06:48] LABS: CALCIUM 8.8 mg/dl (8.5-10.1); CREATININE 0.52 mg/dl (0.60-1.20); POTASSIUM 3.5 mmol/L (3.5-5.1)
[2017-12-22 07:36] VITALS: BP 167/82; PULSE 77; TEMP 36.9; O2SAT 94
[2017-12-22] MEDS: FLUTICASONE/SALMETEROL (ADVAIR) 500/50 INH 14 PUFF INH SCH ×2 (08:43→20:31)
[2017-12-22] MEDS: PANTOprazole SOD 40 MG TAB PO SCH (08:44)
[2017-12-22] MEDS: SERTRALINE HCL 50 MG TAB PO SCH (08:44)
[2017-12-22] MEDS ORDERED: NURSING VERBAL MED ORDER ONE (09:45)
[2017-12-22] MEDS: OXYCODONE/ACETAMINOPHEN 5-325 TAB PO PRN ×2 (10:09→20:37)
--- NOTE | 2017-12-22 12:54 | Hospitalist Progress Note ---
Hospitalist Progress Note Date of Service Dec 22, 2017. Subjective Pt evaluation today including: conversation w/ patient Patient lost her IV site today and switch to p.o. Percocet which is working well for her. She denies chest pain or shortness of breath. Her abdominal pain is improving. She is passing flatus but still no bowel movement. She is tolerating full liquids diet without problems. She is making plenty of urine. She plans on walking the halls today when her daughter gets here. All Other Systems: Reviewed and Negative Objective Vital Signs Date Time Temp Pulse Resp B/P (MAP) Pulse Ox O2 Delivery O2 Flow Rate FiO2 12/22/17 07:36 36.9 77 16 167/82 (110) 94 Room Air 12/21/17 23:58 Room Air 12/21/17 23:02 37.0 83 18 136/66 (89) 93 Room Air 12/21/17 15:50 Room Air 12/21/17 15:05 36.7 82 18 154/82 (106) 95 Room Air 12/21/17 14:32 152/81 (104) Physical Exam General Appearance: WD/WN, no apparent distress Eyes: normal inspection, sclerae normal ENT: hearing grossly normal Neck: trachea midline Respiratory/Chest: lungs clear, normal breath sounds, no respiratory distress, no accessory muscle use Cardiovascular: regular rate, rhythm, no edema, no gallop, no murmur Abdomen: normal bowel sounds, soft, + tenderness (Around incision site without guarding or rebound tenderness) Extremities: non-tender, normal inspection, no pedal edema, no calf tenderness Neurologic/Psychiatric: alert, normal mood/affect, oriented x 3 Skin: warm/dry, no rash, + pertinent finding (Ecchymosis around abdominal incision, Dermabond in place, no surrounding erythema or drainage from the wound ) Laboratory Results Last 24 Hours Test 12/22/17 05:43 White Blood Count 11.64 K/uL Red Blood Count 4.47 M/uL Hemoglobin 14.2 g/dL Hematocrit 41.1 % Mean Corpuscular Volume 91.9 fL Mean Corpuscular Hemoglobin 31.8 pg Mean Corpuscular Hemoglobin Concent 34.5 g/dl RDW Standard Deviation 45.1 fL RDW Coefficient of Variation 13.5 % Platelet Count 331 K/uL Mean Platelet Volume 9.4 fL Sodium Level 134 mmol/L Potassium Level 3.5 mmol/L Chloride Level 100 mmol/L Carbon Dioxide Level 26 mmol/L Anion Gap 8.0 mmol/L Blood Urea Nitrogen 5 mg/dl Creatinine 0.52 mg/dl Est Creatinine Clear Calc Drug Dose 78.3 ml/min Estimated GFR () 106.8 Estimated GFR (Non- 92.2 BUN/Creatinine Ratio 10.2 Random Glucose 89 mg/dl Calcium Level 8.8 mg/dl Assessment and Plan This patient is a 77 yo female here with SBO and recurrent ventral hernia 4 days post-op from original ventral incisional hernia repair. She prevented with significant abdominal pain and persistent nausea and vomiting. Now postop day #3 s/p recurrent repair of ventral hernia and SBO now resolved. Had postoperative ileus which is now improving. Still passing flatus but no bowel movement yet Tolerating full liquids diet -Will defer to Gen Surgery for advancement of diet-will be advanced likely tomorrow and hopeful for discharge in the next 1-2 days -Awaiting bowel movement prior to discharge - Lipase was mildly elevated at 425 on admission repeat 376 which is normal, no evidence of pancreatitis on CT scan and was likely from bowel obstruction -Discontinued IV Dilaudid and switch to p.o. Percocet today for pain -Encouraged ambulation and will add docusate as a stool softener - General surgery consulted, appreciate recommendations and surgical management Mild hypokalemia- RESOLVED after replacement and now tolerating a diet -Follow PRP in the morning Asthma- STABLE: -Continue Advair BID and Ventolin PRN HLD: No issues -Resume Lipitor once tolerating full PO intake Depression: Stable -Continue Zoloft GERD: Continue Zantac + Protonix DVT prophylaxis: Heparin SQ TID Code status: LEVEL I, FULL Dispo: From home- planning for home w/ HHS- CM following- hopeful discharge in the next 1-2 days
[2017-12-22] MEDS ORDERED: DOCUSATE SODIUM 100 MG CAP PO ONE (13:00)
[2017-12-22 15:01] VITALS: BP 166/86; PULSE 75; TEMP 37; O2SAT 94
[2017-12-22] MEDS: RANITIDINE HCL 150 MG TAB PO SCH (20:31)
[2017-12-22] MEDS: DOCUSATE SODIUM 100 MG CAP PO SCH (20:32)
[2017-12-22 23:25] VITALS: BP 158/61; PULSE 82; TEMP 36.9; O2SAT 94
[2017-12-23] MEDS: HEPARIN SOD 5000 UNIT/0.5 ML CARP SQ SCH ×3 (05:30→21:04)
--- NOTE | 2017-12-23 06:13 | Surgery Progress Note ---
Surgery Progress Note Date of Service Dec 23, 2017. Subjective doing well- no bowel movement yet- ++flatus tolerating full liquids Objective Vital Signs: Date Time Temp Pulse Resp B/P (MAP) Pulse Ox O2 Delivery O2 Flow Rate FiO2 12/22/17 23:25 36.9 82 16 158/61 (93) 94 Room Air 12/22/17 23:15 Room Air 12/22/17 15:25 Room Air 12/22/17 15:01 37.0 75 18 166/86 (112) 94 Room Air 12/22/17 08:00 Room Air 12/22/17 07:36 36.9 77 16 167/82 (110) 94 Room Air General Appearance: no apparent distress Respiratory/Chest: no respiratory distress Abdomen: soft (has bowel sounds) Incision(s): intact Laboratory Results: Results Past 24 Hours Test 12/23/17 04:44 Range/Units Assessment & Plan 12/23/17- will advance to low fiber diet, give dose of mineral oil and Sennokot S- possible d/c home tomorrow- overall doing well 12/22/17- good progress- cont full liquids for now ambulate- will need 1-2 more days in hospital 12/22/17- good progress- cont full liquids for now ambulate- will need 1-2 more days in hospital
[2017-12-23] MEDS ORDERED: MINERAL OIL 30 ML UDC PO ONE (06:15)
[2017-12-23 06:59] LABS: BASO % 0.4 %; BASO ABS # 0.04 K/uL (0-0.2); EOS % 4.3 %; EOS ABS # 0.42 K/uL (0-0.5); HEMATOCRIT 37.7 % (37-47); HEMOGLOBIN 13.2 g/dL (12.0-16.0); IG# 0.05 K/uL (0.00-0.02); LYMPH % 19.4 %; MEAN CELL VOLUME 90.8 fL (80-100); MEAN CORPUSCULAR HEMOGLOBIN 31.8 pg (25-34); MEAN PLATELET VOLUME 9.1 fL (7.4-10.4); MONO % 12.4 %; MONO ABS # 1.22 K/uL (0.11-0.59); NEUT ABS # 6.18 K/uL (1.4-6.5); PLATELET COUNT 346 K/uL (130-400); RED CELL DISTRIBUTION WIDTH CV 13.4 % (11.5-14.5); RED CELL DISTRIBUTION WIDTH SD 44.3 fL (36.4-46.3); WHITE BLOOD COUNT 9.81 K/uL (4.8-10.8)
[2017-12-23 07:10] VITALS: BP 177/93; PULSE 74; TEMP 36.8; O2SAT 94
[2017-12-23 07:17] LABS: ALBUMIN 2.6 gm/dl (3.4-5.0); ALT/SGPT 13 U/L (12-78); BLOOD UREA NITROGEN 6 mg/dl (7-18); CALCIUM 8.7 mg/dl (8.5-10.1); CARBON DIOXIDE 27 mmol/L (21-32); CREATININE 0.44 mg/dl (0.60-1.20); GLUCOSE 91 mg/dl (70-99); POTASSIUM 3.4 mmol/L (3.5-5.1); SODIUM 135 mmol/L (136-145)
[2017-12-23 07:20] LABS: ALKALINE PHOSPHATASE 49 U/L (45-117); AST/SGOT 11 U/L (15-37); TOTAL PROTEIN 5.9 gm/dl (6.4-8.2)
[2017-12-23] MEDS: FLUTICASONE/SALMETEROL (ADVAIR) 500/50 INH 14 PUFF INH SCH ×2 (07:20→21:02)
[2017-12-23] MEDS: PANTOprazole SOD 40 MG TAB PO SCH (07:21)
[2017-12-23] MEDS: SERTRALINE HCL 50 MG TAB PO SCH (07:21)
[2017-12-23] MEDS: DOCUSATE SODIUM 100 MG CAP PO SCH (07:21)
[2017-12-23] MEDS: DOCUSATE SODIUM/SENNA 50/8.6MG TAB PO SCH ×2 (07:21→21:03)
[2017-12-23] MEDS ORDERED: POTASSIUM CHLORIDE 20 MEQ TABCR PO STA (08:30)
--- NOTE | 2017-12-23 09:30 | Hospitalist Progress Note ---
Hospitalist Progress Note Date of Service Dec 23, 2017. (Cheryl Downey PA-C) Subjective Pt evaluation today including: conversation w/ patient, physical exam, chart review, lab review, review of studies, review of inpatient medication list Patient seen and evaluated. No acute events overnight. Continues to have + flatus but no BM yet. Had mineral oil and Senna this AM. No N/V. Tolerating diet so far. Having some indigestion since taking mineral oil. Will give Maalox. BS are active and encouraged ambulation. Constitutional: No fever, No chills Respiratory: No cough, No shortness of breath Cardiovascular: No chest pain Abdomen: + constipation, + problem reported (indigestion), No pain, No nausea, No vomiting, No diarrhea Musculoskeletal: No swelling, No calf pain Female : No dysuria (Cheryl Downey, JENNC) Medications Current Inpatient Medications Medications (Trade) Dose Ordered Sig/Hi Route Start Time Stop Time Status Last Admin Dose Admin Heparin Sodium (Porcine) (Heparin Sq 5000 Unit/0.5ml) 5,000 unit Q8H SQ 12/19/17 06:00 01/18/18 05:59 12/23/17 05:30 5,000 UNIT Ondansetron HCl (Zofran Inj) 4 mg Q6H PRN IV 12/18/17 19:30 01/17/18 19:29 12/19/17 04:21 4 MG Albuterol (Ventolin Hfa Inhaler) 2 puffs Q4H PRN INH 12/18/17 20:45 01/17/18 20:44 12/21/17 14:33 2 PUFFS Salmeterol Xinafoate/ Fluticasone (Advair Diskus 500/50 Inh) 1 puff Q12H INH 12/18/17 21:00 01/17/18 20:59 12/23/17 07:20 1 PUFF Hydralazine HCl (HydrALAZINE INJ) 10 mg Q6 PRN IV. 12/18/17 19:30 01/17/18 19:29 12/18/17 21:44 10 MG Miscellaneous (Iv Fluids Completed) 1 ea PRN PRN N/A 12/18/17 21:00 12/18/18 20:59 Ranitidine HCl (zANTac TAB) 150 mg HS PO 12/20/17 21:00 01/19/18 20:59 12/22/17 20:31 150 MG Sertraline HCl (Zoloft Tab) 150 mg QAM PO 12/21/17 09:00 01/20/18 08:59 12/23/17 07:21 150 MG Pantoprazole Sodium (Protonix Tab) 40 mg QAM PO 12/21/17 09:00 12/23/17 10:00 12/23/17 07:21 40 MG Oxycodone/ Acetaminophen (Percocet 5-325mg Tab) `1-2 tabs for pain 1 tab ... Q6H PRN PO 12/22/17 10:00 01/05/18 09:59 12/22/17 20:37 1 TAB Docusate Sodium (coLACE CAP) 100 mg BID PO 12/22/17 21:00 01/21/18 20:59 12/23/17 07:21 100 MG Senna/Docusate Sodium (Senokot S Tab) 1 tab BID PO 12/23/17 09:00 01/22/18 08:59 12/23/17 07:21 1 TAB (Cheryl Downey PA-C) Objective Vital Signs Date Time Temp Pulse Resp B/P (MAP) Pulse Ox O2 Delivery O2 Flow Rate FiO2 12/23/17 07:25 Room Air 12/23/17 07:10 36.8 74 18 177/93 (121) 94 Room Air 12/22/17 23:25 36.9 82 16 158/61 (93) 94 Room Air 12/22/17 23:15 Room Air 12/22/17 15:25 Room Air 12/22/17 15:01 37.0 75 18 166/86 (112) 94 Room Air (Cheryl Downey PA-C) Physical Exam General Appearance: WD/WN, no apparent distress Eyes: sclerae normal ENT: hearing grossly normal Neck: supple, no JVD, trachea midline Respiratory/Chest: lungs clear, normal breath sounds, no respiratory distress, no accessory muscle use Cardiovascular: regular rate, rhythm, no gallop, no murmur Abdomen: normal bowel sounds, non tender, soft, + pertinent finding ( tenderness around incision site (improving); mild distenstion at hernia site, reducible (improved in size since repair)) Extremities: no calf tenderness Neurologic/Psychiatric: alert Skin: normal color, warm/dry (Cheryl Downey PA-C) Laboratory Results Last 24 Hours Test 12/23/17 06:20 White Blood Count 9.81 K/uL Red Blood Count 4.15 M/uL Hemoglobin 13.2 g/dL Hematocrit 37.7 % Mean Corpuscular Volume 90.8 fL Mean Corpuscular Hemoglobin 31.8 pg Mean Corpuscular Hemoglobin Concent 35.0 g/dl Platelet Count 346 K/uL Mean Platelet Volume 9.1 fL Neutrophils (%) (Auto) 63.0 % Lymphocytes (%) (Auto) 19.4 % Monocytes (%) (Auto) 12.4 % Eosinophils (%) (Auto) 4.3 % Basophils (%) (Auto) 0.4 % Neutrophils # (Auto) 6.18 K/uL Lymphocytes # (Auto) 1.90 K/uL Monocytes # (Auto) 1.22 K/uL Eosinophils # (Auto) 0.42 K/uL Basophils # (Auto) 0.04 K/uL RDW Standard Deviation 44.3 fL RDW Coefficient of Variation 13.4 % Immature Granulocyte % (Auto) 0.5 % Immature Granulocyte # (Auto) 0.05 K/uL Sodium Level 135 mmol/L Potassium Level 3.4 mmol/L Chloride Level 99 mmol/L Carbon Dioxide Level 27 mmol/L Anion Gap 9.0 mmol/L Blood Urea Nitrogen 6 mg/dl Creatinine 0.44 mg/dl Est Creatinine Clear Calc Drug Dose 92.5 ml/min Estimated GFR () 112.8 Estimated GFR (Non- 97.4 BUN/Creatinine Ratio 13.7 Random Glucose 91 mg/dl Calcium Level 8.7 mg/dl Magnesium Level 1.9 mg/dl Total Bilirubin 0.5 mg/dl Direct Bilirubin < 0.1 mg/dl Aspartate Amino Transf (AST/SGOT) 11 U/L Alanine Aminotransferase (ALT/SGPT) 13 U/L Alkaline Phosphatase 49 U/L Total Protein 5.9 gm/dl Albumin 2.6 gm/dl (Cheryl Downey PA-C) Assessment and Plan This patient is a 77 yo female here with SBO and recurrent ventral hernia 4 days post-op from original ventral incisional hernia repair. She prevented with significant abdominal pain and persistent nausea and vomiting. Now postop day #3 s/p recurrent repair of ventral hernia and SBO now resolved. S/P Ventral Incisional Hernia Repair with Post-Operative Ileus: IMPROVING - Tolerating diet so far - some indigestion with mineral oil and will give Maalox - Mineral oil and Senna to promote BM - no BM yet but + flatus - Percocet PRN pain; Encourage ambulation - Gen Surg following - appreciate recommendations and surgical management Mild Hypokalemia: - Monitor and replete as necessary Asthma without Exacerbation: - Advair BID and Ventolin PRN HLD: STABLE - Atorvastatin 5 mg HS Depression: STABLE - Zoloft 150 mg daily GERD: - Zantac 150 mg HS and Protonix 40 mg daily; will give one dose Maalox DVT Prophylaxis: Heparin Code Status: FULL RESUSCITATION Dispo: From home - planning on HHS; Await bowel movement - possible D/C tomorrow pending diet tolerance and BM Continued [facility] stay due to: inadequate po fluid intake Discharge planning: home with home health (Cheryl Downey, PA-C) Supervising Note Dr. Barton I performed a history and physical examination on the patient. I reviewed above note and agree with it. I discussed plan with APC and patient. During my face to face encounter with the patient, I answered all of the patient's questions. Patient tolerating diet at this moment. Will continue to monitor. (Rodrigo Barton M.D.)
[2017-12-23] MEDS ORDERED: ALUMINUM/MAGNESIUM/SIMETH (MAALOX MAX) 30 ML UDC PO STA (09:37)
[2017-12-23 13:39] VITALS: BP 144/86
[2017-12-23 15:07] VITALS: BP 158/85; PULSE 80; TEMP 36.9; O2SAT 94
[2017-12-23] MEDS ORDERED: ATORVASTATIN 10 MG TAB PO SCH (21:00)
[2017-12-23] MEDS: RANITIDINE HCL 150 MG TAB PO SCH (21:03)
[2017-12-23 23:06] VITALS: BP 165/81; PULSE 80; TEMP 37; O2SAT 94
[2017-12-24] MEDS: HEPARIN SOD 5000 UNIT/0.5 ML CARP SQ SCH (05:35)
--- NOTE | 2017-12-24 06:38 | Surgery Progress Note ---
Surgery Progress Note Date of Service Dec 24, 2017. Subjective Post OP Day: 5 + feeling well, + ambulating, + bowel movement (Per Patient), + flatus, + pain controlled, + diet (Tolerating Low fiber Diet), No complaints, No nausea, No vomiting Objective Vital Signs: Date Time Temp Pulse Resp B/P (MAP) Pulse Ox O2 Delivery O2 Flow Rate FiO2 12/23/17 23:20 Room Air 12/23/17 23:06 37.0 80 18 165/81 (109) 94 Room Air 12/23/17 15:35 Room Air 12/23/17 15:07 36.9 80 18 158/85 (109) 94 Room Air 12/23/17 13:39 144/86 (105) 12/23/17 07:25 Room Air 12/23/17 07:10 36.8 74 18 177/93 (121) 94 Room Air General Appearance: WD/WN, no apparent distress Head: normocephalic, atraumatic Neck: trachea midline Respiratory/Chest: no respiratory distress, no accessory muscle use Abdomen: soft, no organomegaly, no pulsatile mass, + distended (mild), + tenderness (Incisional, mild) Incision(s): clean, dry, intact, no erythema, no drainage Assessment & Plan POD #5 s/p Ex Lap, Repair of Recurrent Ventral Hernia with Mesh, release of SBO. Mild incisional tenderness, pain controlled. Tolerating Low-fiber diet, No N/ V. +Flatus, +BM per patient. Continue current management. Possibly d/c today if she continues to do well.
--- NOTE | 2017-12-24 06:44 | Discharge Instructions ---
Discharge Instructions Date of Service Dec 24, 2017. Admission Reason for Admission: Small Bowel Obstruction Discharge Discharge Diagnosis / Problem: small bowel obstruction Discharge Goals Goal(s): Decrease discomfort, Improve function Activity Recommendations Activity Limitations: as noted below Lifting Limitations: no more than 10 pounds, until after follow-up appointment Exercise/Sports Limitations: until after follow-up appointment May Resume Sexual Activity: after follow-up appointment Shower/Bathe: no limitations Driving or Machine Use: resume 3 days after discharge (Please do not drive while using narcotic pain medication) . Instructions / Follow-Up Instructions / Follow-Up You have surgical glue covering your incision sites. please allow this to fall off on its own. Follow-up with Dr. Scruggs in 1-2 weeks. Please contact our office at [phone] to schedule an appointment if you have not done so already. Please contact our office with any further questions or concerns. [employer] [address] [place] [address] Current Hospital Diet Patient's current hospital diet: Low Fiber Diet Discharge Diet Recommended Diet: Regular Diet Procedures Procedures Performed: Exploritory Laparotomy, Repair of Recurrent Ventral Hernia with Mesh, Release of Small Bowel Obstruction Pending Studies Studies pending at discharge: no Laboratory Results Lipid Panel Test 10/04/17 11:00 Range/Units Triglycerides Level 108 0-150 mg/dl Cholesterol Level 229 H 0-200 mg/dl HDL Cholesterol 94 mg/dl Cholesterol/HDL Ratio 2.4 LDL Cholesterol, Calculated 113 mg/dl Medical Emergencies . Who to Call and When: Medical Emergencies: If at any time you feel your situation is an emergency, please call 911 immediately. . Non-Emergent Contact Non-Emergency issues call your: Primary Care Provider, Surgeon Call Non-Emergent contact if: you have a fever, temperature is above 101.5, your pain is not controlled, your pain is worsening, wound has increased drainage, wound has increased redness . "Provider Documentation" section prepared by Marcos Barrera. . [place] Drug Monitoring Program Search Results: patient reviewed within database, no issues identified
[2017-12-24] MEDS ORDERED: HYDR-5688 PO (07:05)
[2017-12-24 07:13] VITALS: BP 123/69; PULSE 80; TEMP 36.9; O2SAT 94
[2017-12-24] MEDS: FLUTICASONE/SALMETEROL (ADVAIR) 500/50 INH 14 PUFF INH SCH (08:34)
[2017-12-24] MEDS: SERTRALINE HCL 50 MG TAB PO SCH (08:35)
[2017-12-24] MEDS: DOCUSATE SODIUM/SENNA 50/8.6MG TAB PO SCH (08:35)
[2017-12-24 08:44] VITALS: O2SAT 96
[2017-12-24 09:29] LABS: HEMATOCRIT 41.1 % (37-47); HEMOGLOBIN 14.3 g/dL (12.0-16.0); MEAN CELL VOLUME 90.5 fL (80-100); MEAN CORPUSCULAR HEMOGLOBIN 31.5 pg (25-34); MEAN CORPUSCULAR HGB CONC 34.8 g/dl (32-36); PLATELET COUNT 395 K/uL (130-400); RED CELL DISTRIBUTION WIDTH CV 13.5 % (11.5-14.5); RED CELL DISTRIBUTION WIDTH SD 44.5 fL (36.4-46.3); WHITE BLOOD COUNT 11.97 K/uL (4.8-10.8)
[2017-12-24 09:50] LABS: CREATININE 0.67 mg/dl (0.60-1.20); POTASSIUM 3.5 mmol/L (3.5-5.1)
[2017-12-24 13:08] VITALS: BP 123/69; PULSE 80; TEMP 36.9; O2SAT 96
--- NOTE | 2017-12-24 14:53 | Hospitalist Progress Note ---
Hospitalist Progress Note Date of Service Dec 24, 2017. Subjective Pt evaluation today including: conversation w/ patient, conversation w/ family (daughter at bedside), physical exam, chart review, lab review, review of inpatient medication list Pain: None PO Intake: Tolerating PO diet Voiding: no voiding problems The patient reports feeling well. She denies any nausea, vomiting, or abdominal pain. She had a very small BM this morning but notes she had 3 BMs yesterday. The patient denies fevers, chills, sweats, chest pain, palpitations , claudication, cough, wheezing, shortness of breath, nausea, vomiting, abdominal pain, dysuria, hematuria, urinary retention, paralysis, weakness, numbness and tingling. Additional Comments: See HPI for pertinent positives and negatives. All other systems reviewed and negative. Objective Vital Signs Date Time Temp Pulse Resp B/P (MAP) Pulse Ox O2 Delivery O2 Flow Rate FiO2 12/24/17 13:08 36.9 80 16 96 Room Air 12/24/17 08:44 96 12/24/17 07:35 Room Air 12/24/17 07:13 36.9 80 16 123/69 (87) 94 Room Air 12/23/17 23:20 Room Air 12/23/17 23:06 37.0 80 18 165/81 (109) 94 Room Air 12/23/17 15:35 Room Air 12/23/17 15:07 36.9 80 18 158/85 (109) 94 Room Air Physical Exam Notes: General appearance: Well-developed, well-nourished, no apparent distress Head: Normocephalic, atraumatic Eyes: Normal inspection, PERRL, EOMI ENT: Normal ENT inspection, hearing grossly normal, pharynx normal Neck: Supple, no JVD, trachea midline Respiratory/Chest: Lungs clear to auscultation, normal breath sounds, no respiratory distress Cardiovascular: Regular rate & rhythm, no gallop, no murmur Abdomen/GI: +Midline incision closed, healing. Mildly TTP on left side of abdomen. Normal bowel sounds, soft Extremities/Musculoskeletal: Normal inspection, no calf tenderness, no pedal edema Neurological/Psych: Alert, normal mood/affect, oriented x 3 Skin: Normal color, warm/dry, no rash Laboratory Results Last 24 Hours Test 12/24/17 09:15 White Blood Count 11.97 K/uL Red Blood Count 4.54 M/uL Hemoglobin 14.3 g/dL Hematocrit 41.1 % Mean Corpuscular Volume 90.5 fL Mean Corpuscular Hemoglobin 31.5 pg Mean Corpuscular Hemoglobin Concent 34.8 g/dl RDW Standard Deviation 44.5 fL RDW Coefficient of Variation 13.5 % Platelet Count 395 K/uL Mean Platelet Volume 9.0 fL Sodium Level 133 mmol/L Potassium Level 3.5 mmol/L Chloride Level 99 mmol/L Carbon Dioxide Level 27 mmol/L Anion Gap 7.0 mmol/L Blood Urea Nitrogen 9 mg/dl Creatinine 0.67 mg/dl Est Creatinine Clear Calc Drug Dose 60.8 ml/min Estimated GFR () 98.3 Estimated GFR (Non- 84.8 BUN/Creatinine Ratio 13.0 Random Glucose 184 mg/dl Calcium Level 9.0 mg/dl Assessment and Plan 77 y/o female with a history of HLD, asthma, depression and GERD who presents with recurrent ventral hernia and small bowel obstruction. Small bowel obstruction, S/P Ventral Incisional Hernia Repair 12/19 with Post- Operative Ileus--resolving - SBO released during hernia repair - Tolerating diet, had 3 BMs yesterday - Mineral oil and Senna - Percocet PRN pain; Encourage ambulation - General surgery consulted, appreciate recs: Stable for discharge if moving bowels. Mild Hypokalemia--improving - Monitor and replete as necessary HLD--stable -Continue Lipitor 5 mg PO qd Asthma--stable, no acute exacerbation - Continue Advair BID and Ventolin PRN Depression--stable - Continue Zoloft 150 mg PO qd GERD - Continue Zantac 150 mg HS and Protonix 40 mg daily DVT Prophylaxis -Heparin 5000 units SC q8h Code Status -Level I, FULL RESUSCITATION STATUS Discharged per surgical team
--- NOTE | 2017-12-27 00:07 | Discharge Summary ---
Discharge Summary Date of Service Dec 26, 2017. Admission Date/Reason Dec 19, 2017 at 09:21 Small Bowel Obstruction. Discharge Date/Disposition Dec 24, 2017 Home Diagnosis Principal Diagnosis: ventral hernia with small bowel obstruction Procedure(s) Performed Exploritory Laparoscopy, release of SBO, removal old mesh, Repair of Recurrent Ventral Hernia with biologic Mesh, Release of Small Bowel Obstruction. Medication Reconciliation [place] 5mg/325mg 1-2 Tablets PO Q4H PRN for pain x 3 days. Disp: 20 Tablets. Admission Physical Exam As per Admitting History & Physical. Hospital Course 12/18/17: Patient presented to the ED this evening with N/V x 2 days. She is 5 days out from a ventral hernia repair w/ mesh with Dr. Scruggs. She was seen by Dr. Fox with [facility] general surgery in the ED [facility]. CT showed a recurrent ventral hernia containing small bowel and an associated small bowel obstruction. He recommended taking her to the OR at this time as a strangulation could have developed if she were to wait, but the patient elected to wait and see Dr. Scruggs in the morning. She was admitted with conservative measures. 12/19/17: Patient was seen by Dr. Scruggs and it was decided to proceed with surgery at this time to release her small bowel and repair the recurrent hernia. Patient underwent Exploratory Laparoscopy, release of SBO, removal old mesh, Repair of Recurrent Ventral Hernia with biologic Mesh, Release of Small Bowel Obstruction. The procedure was performed successfully without complications. Patient was transferred back to med/surg for post-op care at this time. 12/20/17: Patient was doing well today with some incisional tenderness, pain controlled. She was passing gas this AM and was started on a clear liquid diet and encouraged to ambulate. 12/21/17: Doing well, pain controlled. Passing alot of flatus but still no BM at this time. Patient was advanced to full liquids. Awaiting bowel function. 12/22/17: Patient is continuing to do well. Still passing gas. No BM yet. Tolerating full liquids. Keep full liquids for now and encourage ambulation. 12/23/17: Doing well, pain controlled. Still no BM. Tolerating full liquids. Diet advanced to low-fiber diet. mineral oil and sennokot S added to chemist helper return of bowel function. 4/2/18: Doing well pain controlled. Tolerating low-fiber diet. Patient reports that she had a BM. Patient was discharged today with instructions to follow-up with Dr. Scruggs in the general surgery clinic. She was given a prescription for [place] to take as needed for pain relief and given instructions or limitations and wound care. Discharge Instructions Please refer to the electronic Patient Visit Report (Discharge Instructions) for additional information.
== END 2017-12-24 13:31 | disposition home health service (06) | DRG 908 ==
LOC: EDBD 12:12 → C.EDC 12:13 → C.MSN 19:28 → ENRESERV 19:52 → OBSVTOIN 12-19 09:21
PROVIDERS: ADMIT Family Medicine; ATTEND Internal Medicine
PROC: 0DS84ZZ Reposition Small Intestine, Percutaneous Endoscopic Approach (ICD-10-PCS; principal; 2017-12-19 07:00)
PROC: 0WUF4JZ Supplement Abdominal Wall with Synthetic Substitute, Percutaneous Endoscopic Approach (ICD-10-PCS; principal; 2017-12-19 07:00)
PROC: 0WPF4JZ Removal of Synthetic Substitute from Abdominal Wall, Percutaneous Endoscopic Approach (ICD-10-PCS; principal; 2017-12-19 07:00)
PROC: 0DN84ZZ Release Small Intestine, Percutaneous Endoscopic Approach (ICD-10-PCS; principal; 2017-12-19 07:00)
DX: T85.698A Other mechanical complication of other specified internal prosthetic devices, implants and grafts, initial encounter (principal); K43.0 Incisional hernia with obstruction, without gangrene; K91.30 Postprocedural intestinal obstruction, unspecified as to partial versus complete; Y83.8 Other surgical procedures as the cause of abnormal reaction of the patient, or of later complication, without mention of misadventure at the time of the procedure; E87.6 Hypokalemia; J45.909 Unspecified asthma, uncomplicated; K21.9 Gastro-esophageal reflux disease without esophagitis; E78.00 Pure hypercholesterolemia, unspecified; F32.9 Major depressive disorder, single episode, unspecified; Z87.19 Personal history of other diseases of the digestive system; Z98.0 Intestinal bypass and anastomosis status; Z79.83 Long term (current) use of bisphosphonates; Z79.899 Other long term (current) drug therapy; Z88.8 Allergy status to other drugs, medicaments and biological substances; Z82.49 Family history of ischemic heart disease and other diseases of the circulatory system

== ENCOUNTER → 2018-04-15 | Outpatient (CLI) | payer BC ==
[~2018-04-15] MED LIST changes: -HYDR-5688 PO
[2018-04-15 12:16] LABS: BASO % 0.8 %; BASO ABS # 0.06 K/uL (0-0.2); EOS % 2.4 %; EOS ABS # 0.18 K/uL (0-0.5); HEMOGLOBIN 14.6 g/dL (12.0-16.0); IG# 0.01 K/uL (0.00-0.02); LYMPH % 35.6 %; LYMPH ABS # 2.63 K/uL (1.2-3.4); MEAN CELL VOLUME 93.6 fL (80-100); MEAN CORPUSCULAR HEMOGLOBIN 31.1 pg (25-34); MEAN CORPUSCULAR HGB CONC 33.2 g/dl (32-36); MEAN PLATELET VOLUME 9.9 fL (7.4-10.4); MONO % 12.4 %; MONO ABS # 0.92 K/uL (0.11-0.59); NEUT % 48.7 %; NEUT ABS # 3.59 K/uL (1.4-6.5); PLATELET COUNT 294 K/uL (130-400); RED CELL DISTRIBUTION WIDTH CV 14.4 % (11.5-14.5); RED CELL DISTRIBUTION WIDTH SD 48.9 fL (36.4-46.3); WHITE BLOOD COUNT 7.39 K/uL (4.8-10.8)
[2018-04-15 12:54] LABS: ALBUMIN 3.5 gm/dl (3.4-5.0); ALKALINE PHOSPHATASE 58 U/L (45-117); ALT/SGPT 21 U/L (12-78); AST/SGOT 14 U/L (15-37); BLOOD UREA NITROGEN 13 mg/dl (7-18); CALCIUM 8.5 mg/dl (8.5-10.1); CARBON DIOXIDE 28 mmol/L (21-32); CHOLESTEROL 271 mg/dl (0-200); CREATININE 0.69 mg/dl (0.60-1.20); GLUCOSE 80 mg/dl (70-99); LDL CHOLESTEROL CALCULATED 160 mg/dl; POTASSIUM 4.1 mmol/L (3.5-5.1); SODIUM 140 mmol/L (136-145)
== END | disposition home or self-care (01) ==
LOC: C.LAB1850 11:01
PROVIDERS: ATTEND Internal Medicine
DX: M81.0 Age-related osteoporosis without current pathological fracture (principal); E78.5 Hyperlipidemia, unspecified; R14.0 Abdominal distension (gaseous)

== ENCOUNTER 2018-12-19 11:42 | Observation (INO) ==
--- NOTE | 2018-12-11 10:12 | PAT Medication Instructions ---
Medication Instructions Date of Service December 11, 2018 Home Medications Fish Oil 2 cap PO QAM albuterol sulfate 1 - 2 puff INHALATION Q4H PRN atorvastatin [Lipitor] 5 mg PO HS calcium carbonate-vitamin D3 1 tab PO QAM cyanocobalamin (vitamin B-12) 100 mcg PO QAM fluticasone propion-salmeterol 1 inh INHALATION Q12H multivitamin 1 tab PO QAM oxybutynin chloride 5 mg PO QAM ranitidine HCl 150 mg PO HS sertraline 150 mg PO QAM STOP taking 2 weeks before surgery (or as soon as possible if surgery is within 2 weeks) Fish Oil 2 cap PO QAM DO NOT take the morning of surgery calcium carbonate-vitamin D3 1 tab PO QAM cyanocobalamin (vitamin B-12) 100 mcg PO QAM multivitamin 1 tab PO QAM Take morning of surgery With a small sip of water, OTHERWISE NOTHING TO EAT OR DRINK AFTER MIDNIGHT: albuterol sulfate 1 - 2 puff INHALATION Q4H PRN (use if needed; please bring with you to hospital day of surgery if possible) fluticasone propion-salmeterol 1 inh INHALATION Q12H oxybutynin chloride 5 mg PO QAM sertraline 150 mg PO QAM Take evening before surgery albuterol sulfate 1 - 2 puff INHALATION Q4H PRN (if needed) atorvastatin [Lipitor] 5 mg PO HS fluticasone propion-salmeterol 1 inh INHALATION Q12H ranitidine HCl 150 mg PO HS Other Notes If you have any questions please call us at [phone] or [phone] or [phone] or [phone]
--- NOTE | 2018-12-11 10:21 | Anesthesiology Consultation ---
Date of Service December 11, 2018 Assessment & Plan (1) Encounter for pre-operative examination: - Chart/EKG reviewed with Dr. Gallegos; no further cardiac testing/evaluation needed prior to surgery. - Exploratory laparotomy, repair of recurrent ventral hernia with mesh, release of SBO= 12/19/17= Grade view 1, MAC 3, ETT 7.0 at [facility] Chart Review Chart Review: Acceptable Risk for Surgery and Patient seen in Pre Admission Testing Teaching & Discussion Pre-Anesthesia Teaching/Discussion Notes: Instructed NPO after midnight before surgery,except medications with 15 cc of water. Medication instructions provided according to the PAT guidelines. History Surgery Operation Date: 12/19/18 07:00 Proposed Procedures p Open Recurrent Ventral Hernia with Mesh, Possible Component Separation - Maximo Scruggs, Height/Weight Height: 4 ft 11 in Weight: 54.6 kg Allergies Allergy/AdvReac Type Severity Reaction Status Date / Time alendronate sodium Allergy Unknown WEAKNESS Verified 12/09/18 09:06 HANDS Medications Home Medications Medication Instructions Recorded Confirmed Last Taken Fish Oil 2 cap PO QAM 12/09/18 12/09/18 Unknown albuterol sulfate 1 - 2 puff INHALATION Q4H PRN 12/09/18 12/09/18 Unknown atorvastatin [Lipitor] 5 mg PO HS 12/09/18 12/09/18 Unknown calcium carbonate-vitamin D3 1 tab PO QAM 12/09/18 12/09/18 Unknown [Calcium 500 With D] cyanocobalamin (vitamin B-12) 100 mcg PO QAM 12/09/18 12/09/18 Unknown fluticasone propion-salmeterol 1 inh INHALATION Q12H 12/09/18 12/09/18 Unknown [Advair Diskus] multivitamin 1 tab PO QAM 12/09/18 12/09/18 Unknown oxybutynin chloride 5 mg PO QAM 12/09/18 12/09/18 Unknown ranitidine HCl 150 mg PO HS 12/09/18 12/09/18 Unknown sertraline 150 mg PO QAM 12/09/18 12/09/18 Unknown Past Medical History Medical History Anxiety Chronic obstructive pulmonary disease STABLE Depression Diverticular disease Hyperlipidemia LBBB (left bundle branch block) CHRONIC DATING BACK TO AT LEAST 2009 Osteoarthritis Osteoporosis Overactive bladder Past Family History Family History Brother Family history of diabetes mellitus Family/Other Family history of diabetes mellitus Past Surgical History Surgical History History of bilateral tubal ligation History of bowel resection 2/2 DIVERTICULITIS History of colonoscopy History of colostomy History of colostomy reversal History of exploratory laparotomy Exploratory laparotomy, repair of recurrent ventral hernia with mesh, release of SBO= 12/19/17= Grade view 1, MAC 3, ETT 7.0 at [facility] History of herniorrhaphy History of tonsillectomy History of wisdom tooth extraction Status post excision of lipoma LEFT ARM Past Anesthesia History No Hx of Anesthesia Complications and No Family Hx of Anesthesia Complications Social History Smoking Status: Former smoker Do You Dip or Chew Tobacco: No Smoking End Date: QUIT SMOKING 2005; 1PPD X 10+ YEARS Hx Alcohol Use: Yes Alcohol type: beer, wine and hard liquor alcohol intake frequency: a few times a week Hx Substance Use: No substance use type: does not use Exercise / Class Metabolic Activity II 4-5 Yardwork/Stairs/Walk up hill Review of Systems Patient denies chest pain, shortness of breath, cough, wheezing, palpitations. Physical Exam Vital Signs VITALS BP 115/68 P 77 TEMP 98.1 SP02 93%RA RESP 18 PHYSICAL Mildly decreased cervical extension Full TMJ range of motion. TMD 3 finger breaths Mallampati Score 2 Dentition: full dentures upper/lower Lungs: clear throughout to auscultation Cardiac: regular rate and rhythm, no murmurs noted Spine: normal Carotid arteries: negative bruit Extremities: no edema Testing Electrocardiogram Date: 12/11/18 NSR at 71bpm. LBBB (NS TWA anterolateral leads) Stress Test Date: 05/25/10 Type: nuclear Baseline rest ECG LBBB. Post stress myocardial perfusion images show a normal pattern of perfusion in all regions. No evidence of myocardial infarction or stress induced ischemia. Perfusion defect noted. Exercise capacity 7 METS. Nondiagnostic stress EKG due to baseline LBBB. Laboratory Results 12/11/18 10:17 12/11/18 10:17
[2018-12-11 11:06] LABS: Basophils # (auto) 0.03 K/uL (0-0.2); Basophils % (auto) 0.4 %; Eosinophils # (auto) 0.18 K/uL (0-0.5); Eosinophils % (auto) 2.3 %; Hematocrit (blood only) 44.2 % (37-47); Hemoglobin 14.8 g/dL (12.0-16.0); Immature Granulocytes # (auto) 0.02 K/uL (0.00-0.02); Immature Granulocytes % (auto) 0.3 %; Lymphocytes # (auto) 2.44 K/uL (1.2-3.4); Lymphocytes % (auto) 30.7 %; Mean Corpuscular Hgb Conc 33.5 g/dL (32-36); Mean Corpuscular Volume 95.7 fL (80-100); Mean Platelet Volume 10.1 fL (7.4-10.4); Monocytes # (auto) 0.89 K/uL (0.11-0.59); Monocytes % (auto) 11.2 %; Neutrophils % (auto) 55.1 %; Platelet Count 271 K/uL (130-400); RDW Coefficient of Variation 14.8 % (11.5-14.5); RDW Standard Deviation 52.1 fL (36.4-46.3); Red Blood Count 4.62 M/uL (4.2-5.4); White Blood Count 7.96 K/uL (4.8-10.8)
[2018-12-11 11:18] LABS: BUN Creatinine Ratio 16.3 (10-20); Calcium 8.9 mg/dl (8.5-10.1); Creatinine Clr Calc Pharmacy 43.2 ml/min; Est GFR (African American) 80.6; Est GFR (Non-African American) 69.6; Potassium 3.9 mmol/L (3.5-5.1)
[~2018-12-19 11:42] MED LIST changes: -ADVIN50050 INH; -ATOR10TA82 PO; -CALC600T9 PO; +CEFAZOLIN 2000MG 2,000 MG/15 ML SYR IV SCH; -CYAN100T6 PO; -IBAN150T PO; +LR 15ML/HR IV SCH; -MULT-506 PO; -OMEGCAP2 PO; -RANI150T85 PO; -SERT-234 PO; -VNTHFA/IN INH
[2018-12-19] MEDS ORDERED: MIDAZOLAM HCL 1 MG/ML 2ML VIAL ONE (12:51)
[2018-12-19] MEDS ORDERED: DEXAMETHASONE SOD INJ 4 MG/ML VIAL ONE (12:51)
[2018-12-19] MEDS ORDERED: PROPOFOL IV EMULSION 10 MG/ML 20 ML VIAL IV ONE (12:51)
[2018-12-19] MEDS ORDERED: LIDOCAINE HCL 2% 2 ML VIAL/AMP(20MG/ML) INFIL ONE (12:51)
[2018-12-19] MEDS ORDERED: ONDANSETRON INJ 2 MG/ML 2 ML VIAL ONE (12:51)
[2018-12-19] MEDS ORDERED: DEXAMETHASONE SOD INJ 4 MG/ML VIAL IV PRN (12:52)
[2018-12-19] MEDS ORDERED: ePHEDrine sulfate 50 MG/ML AMP IV PRN (12:52)
[2018-12-19] MEDS ORDERED: ONDANSETRON INJ 2 MG/ML 2 ML VIAL IV PRN ×2 (12:52→16:01)
[2018-12-19] MEDS ORDERED: HYDROmorphone INJ 2 MG/ML SYR/VIAL IV PRN (12:52)
[2018-12-19] MEDS ORDERED: fentaNYL citrate 100 MCG/2 ML VIAL ONE ×2 (12:52→14:31)
[2018-12-19] MEDS ORDERED: ATROPINE SULFATE 0.1 MG/ML 10ML SYR IV PRN (12:52)
--- NOTE | 2018-12-19 12:57 | History & Physical Report ---
Date of Service December 19, 2018 Assessment & Plan (1) Incisional hernia: We discussed her options and risks. We discussed her options/risks ( bleeding/infection/infection of mesh/dvt/pe/cva/mi/injury to an organ/etc...) will plan an open repair with mesh questions answered pt agrees to plan History of Present Illness Primary Care Provider: Lewis Dow MD Patient well-known to me. I done several previous hernia repairs on her. She recently noted a supraumbilical bulge through an incision. It has been getting larger. Ultrasound confirms a ventral incisional hernia. Allergies Allergy/AdvReac Type Severity Reaction Status Date / Time alendronate sodium Allergy Unknown WEAKNESS Verified 12/09/18 09:06 HANDS Home Medications Home Medications Medication Instructions Recorded Confirmed Type Fish Oil 2 cap PO QAM 12/09/18 12/09/18 History albuterol sulfate 1 - 2 puff INHALATION Q4H PRN 12/09/18 12/09/18 History atorvastatin [Lipitor] 5 mg PO HS 12/09/18 12/09/18 History calcium carbonate-vitamin D3 1 tab PO QAM 12/09/18 12/09/18 History [Calcium 500 With D] cyanocobalamin (vitamin B-12) 100 mcg PO QAM 12/09/18 12/09/18 History fluticasone propion-salmeterol 1 inh INHALATION Q12H 12/09/18 12/09/18 History [Advair Diskus] multivitamin 1 tab PO QAM 12/09/18 12/09/18 History oxybutynin chloride 5 mg PO QAM 12/09/18 12/09/18 History ranitidine HCl 150 mg PO HS 12/09/18 12/09/18 History sertraline 150 mg PO QAM 12/09/18 12/09/18 History Past Med/Surg History Medical History Anxiety Chronic obstructive pulmonary disease STABLE Depression Diverticular disease Hyperlipidemia Osteoarthritis Osteoporosis Overactive bladder LBBB (left bundle branch block) CHRONIC DATING BACK TO AT LEAST 2009 Surgical History History of bilateral tubal ligation History of bowel resection 2/2 DIVERTICULITIS History of colonoscopy History of colostomy History of colostomy reversal History of herniorrhaphy History of tonsillectomy History of wisdom tooth extraction Status post excision of lipoma LEFT ARM History of exploratory laparotomy Exploratory laparotomy, repair of recurrent ventral hernia with mesh, release of SBO= 12/19/17= Grade view 1, MAC 3, ETT 7.0 at [facility] Family History Brother Family history of diabetes mellitus Family/Other Family history of diabetes mellitus Social History Preferred Language: Lithuanian Communication Ability: Effective Brake Operator Sheet Metal Required: No Beliefs That Will Affect Care: None Current Living Situation: Alone Other Information That Helps Us Care for You: No Feels Safe at Home: Yes Safety Concerns: Feels Safe At This Time Smoking Status: Former smoker Hx Alcohol Use: Yes Hx Substance Use: No Review of Systems All systems reviewed & are unremarkable except as noted in HPI & below Physical Exam Vital Signs (Past 24 Hours): Last Vital Signs Temp 36.6 C 12/19/18 12:11 Pulse 76 12/19/18 12:11 Resp 20 12/19/18 12:11 BP 128/64 12/19/18 12:11 Pulse Ox 18 L 12/19/18 12:11 Physical Exam: alert/oriented. nad Heent: pearla. eomi Heart: RRR Lungs: CTA b/l abd: soft. large supra-umbilical hernia. nontender. ext: no c/c/e
[2018-12-19] MEDS ORDERED: BUPIVACAINE/EPINEPHRINE 0.5% MPF 1:200,000 30 ML VIAL ONE (13:10)
[2018-12-19] MEDS ORDERED: ARISTA ABSORBABLE HEMOSTAT 3GM TOP ONE (13:59)
[2018-12-19] MEDS ORDERED: PHENYLEPHRINE 100MCG/ML 5ML SYR ONE (14:08)
--- NOTE | 2018-12-19 14:36 | Operative Report ---
Post Operative Report Pre & Post Diagnosis Operation Date: 12/19/18 13:10 Pre-Op Diagnosis: Recurrent Ventral Hernia Post-Op Diagnosis: Recurrent Ventral Hernia;adhesions Procedure Operation Date: 12/19/18 13:10 Actual Procedures p Open Recurrent Ventral Hernia Repair with Mesh, Enterolysis(Not Applicable) - Maximo Scruggs DO Surgeon Maximo Scruggs DO Hydraulic Jack Operator shahrzad Michael Estimated Blood Loss 10 Findings Consistent with Post-Op Diagnosis Specimens none Description of Procedure After informed consent was obtained the patient was taken to the operating room and placed in supine position. After successful intubation the abdomen was sterilely prepped and draped in usual fashion. I used a 15 blade scalpel to make a vertical incision through an old scar line above the umbilicus. This is carried down through soft tissue using cautery. I immediately encountered a hernia sac which we opened. This revealed some colon and small bowel incarcerated within the hernia. We used traction countertraction and sharp scissor lysis to take down the adhesions in their entirety until we could fully reduce them. We then removed the remainder of the hernia sac exposing the fascial edges. It was not under that much tension and was not that large of a hernia and therefore I decided to not do a component separation. I used #1 Ethibond in simple interrupted fashion to primarily close the defect. We then used cautery to skeletonize the fascia in 360 degrees for several centimeters in all directions. We thoroughly irrigated the wound. I used a polypropylene mesh as an onlay and secured it with 0 Ethibond in simple interrupted fashion. It had nice overlap in all directions. Final irrigation was performed. There was adequate hemostasis. Kassandra powder was placed on all the raw surfaces to help prevent this hematoma and seroma formation. A 10 flat Ronnie-Orjas drain was also brought in through a separate stab incision and placed in the wound bed. The wound was closed in multiple layers using 2-0 Vicryl for the deep and mid layers and 4-0 Monocryl for the skin. Dermabond glue and an OpSite dressing were applied. The drain was secured using 2-0 nylon. The patient was awakened, extubated transferred to recovery in stable condition. My physician executive personal assistant was present through the entire case. He helped prep the patient. Helped with exposure during the entire dissection helped with mesh placement wound closure and dressing placement. I attest to the content of the Intraoperative Record and any orders documented therein. Any exceptions are noted below.
[2018-12-19] MEDS: fentaNYL citrate 100 MCG/2 ML VIAL IV PRN ×3 (14:45→15:00)
[2018-12-19] MEDS ORDERED: LACTATED RINGER'S 1,000 ML IV SCH (16:01)
[2018-12-19] MEDS ORDERED: ALBUTEROL HFA 8 GM INHALER INH PRN (16:01)
[2018-12-19] MEDS ORDERED: MoRPHine SULFATE 4 MG/ML 1 ML CARP\\VIAL IV PRN (16:01)
[2018-12-19] MEDS ORDERED: HYDROCODONE/ACETAMOPHEN 5/325MG TAB PO PRN (16:01)
--- NOTE | 2018-12-19 17:38 | Anesthesiology Progress Note ---
Date of Service December 19, 2018 Anesthesia Post Procedure Vital Signs Vital Signs: Temp Pulse Pulse Resp BP BP Pulse Ox 12/19/18 16:44 71 17 148/75 H 92 12/19/18 16:16 36.6 C 70 18 125/74 96 12/19/18 15:45 36.6 C 70 18 127/67 97 12/19/18 15:25 36.7 C 70 14 134/65 99 12/19/18 15:15 69 12 130/64 99 12/19/18 15:05 69 13 131/59 L 98 12/19/18 14:55 73 17 128/66 99 12/19/18 14:45 71 17 133/63 99 12/19/18 14:37 37.4 C 72 15 155/82 H 99 12/19/18 12:11 36.6 C 76 20 128/64 18 L Pain Intensity Left Medial Abdomen: Pain Intensity: 4 Notes Mental Status: alert / awake / arousable and participated in evaluation Patient Amnestic to Procedure: Yes Nausea / Vomiting: adequately controlled Pain: adequately controlled Airway Patency, RR, SpO2: stable & adequate BP & HR: stable & adequate Hydration State: stable & adequate Anesthetic Complications: no major complications apparent
[2018-12-19] MEDS: FLUTICASONE/SALMETEROL (ADVAIR) 500/50 INH 14 PUFF INH SCH (20:14)
[2018-12-19] MEDS: HYDROCODONE/ACETAMOPHEN 5/325MG TAB PO PRN (20:21)
[2018-12-19] MEDS: CEFAZOLIN 2000MG 2,000 MG/15 ML SYR IV SCH (20:22)
[2018-12-19] MEDS ORDERED: ATORVASTATIN 10 MG TAB PO SCH (21:00)
[2018-12-20] MEDS: HYDROCODONE/ACETAMOPHEN 5/325MG TAB PO PRN ×3 (00:27→13:00)
[2018-12-20] MEDS: CEFAZOLIN 2000MG 2,000 MG/15 ML SYR IV SCH (04:52)
--- NOTE | 2018-12-20 08:17 | Anesthesiology Progress Note ---
Date of Service December 20, 2018 Anesthesia Post Procedure Vital Signs Vital Signs: Temp Pulse Pulse Pulse Resp BP BP 12/20/18 07:45 36.9 C 68 19 140/70 12/20/18 02:33 37.0 C 62 14 117/68 12/19/18 22:55 37.1 C 76 16 145/76 H 169/77 H 12/19/18 19:02 36.7 C 71 17 172/81 H 12/19/18 17:46 36.7 C 69 18 143/80 H 12/19/18 16:44 71 17 148/75 H 12/19/18 16:16 36.6 C 70 18 125/74 12/19/18 15:45 36.6 C 70 18 127/67 12/19/18 15:25 36.7 C 70 14 134/65 12/19/18 15:15 69 12 130/64 12/19/18 15:05 69 13 131/59 L 12/19/18 14:55 73 17 128/66 12/19/18 14:45 71 17 133/63 12/19/18 14:37 37.4 C 72 15 155/82 H 12/19/18 12:11 36.6 C 76 20 128/64 Pulse Ox 12/20/18 07:45 96 12/20/18 02:33 93 12/19/18 22:55 90 12/19/18 19:02 92 12/19/18 17:46 91 12/19/18 16:44 92 12/19/18 16:16 96 12/19/18 15:45 97 12/19/18 15:25 99 12/19/18 15:15 99 12/19/18 15:05 98 12/19/18 14:55 99 12/19/18 14:45 99 12/19/18 14:37 99 12/19/18 12:11 18 L Pain Intensity Left Medial Abdomen: Pain Intensity: 8 Notes Mental Status: alert / awake / arousable and participated in evaluation Patient Amnestic to Procedure: Yes Nausea / Vomiting: adequately controlled Pain: adequately controlled Airway Patency, RR, SpO2: stable & adequate BP & HR: stable & adequate Hydration State: stable & adequate Anesthetic Complications: no major complications apparent and Pt Satisfied with anesthetic care
--- NOTE | 2018-12-20 08:26 | Surgery Progress Note ---
Date of Service December 20, 2018 Assessment & Plan (1) Incisional hernia: pod 1 doing well ok for d/c instructions given Subjective feeling well. pain controlled. no n/v. Physical Exam Vital Signs (Past 24 Hours): Last Vital Signs Temp 36.9 C 12/20/18 07:45 Pulse 68 12/20/18 07:45 Resp 19 12/20/18 07:45 BP 140/70 12/20/18 07:45 Pulse Ox 96 12/20/18 07:45 Physical Exam: alert. nad GARRETT serous wound looks good.
[2018-12-20] MEDS: FLUTICASONE/SALMETEROL (ADVAIR) 500/50 INH 14 PUFF INH SCH (08:40)
[2018-12-20] MEDS ORDERED: SERTRALINE HCL 100 MG TABLET PO SCH (09:00)
[2018-12-20] MEDS ORDERED: OXYBUTYNIN CHLORIDE 5 MG TAB PO SCH (09:00)
--- NOTE | 2018-12-23 10:26 | Discharge Summary ---
Date of Service December 23, 2018 Admission HPI Per Admitting Provider Patient well-known to me. I done several previous hernia repairs on her. She recently noted a supraumbilical bulge through an incision. It has been getting larger. Ultrasound confirms a ventral incisional hernia. Principal Diagnosis Recurrent ventral hernia Discharge Exam Gastrointestinal (Abdomen) Inspection/Auscultation: normal bowel sounds, + abdominal surgical incision (clean, dry) and + abdominal surgical drain present (GARRETT) Discharge Data Allergies Allergy/AdvReac Type Severity Reaction Status Date / Time alendronate sodium Allergy Unknown WEAKNESS Verified 12/09/18 09:06 HANDS Procedures Performed Operation Date: 12/19/18 13:10 Actual Procedures p Open Recurrent Ventral Hernia Repair with Mesh, Enterolysis(Not Applicable) - Maximo Scruggs DO Hospital Course (1) Incisional hernia: 78 y/8female with recurrent ventral/incisional hernia taken to the OR for elective hernia repair. Procedure was well tolerated. She was transferred to the surgical floor for overnight observation. The next day she was tolerating diet a nd oral analgesics. GARRETT drainage was 20 cc. She was stable for discharge home later in the afternoon with the drain and abdominal binder. Total Time Total Time Spent Total Time Spent (In Minutes): 15 Discharge Plan Discharge Items Patient Disposition: Home - Home Health Services Reason For Visit: Recurrent Ventral Hernia Discharge Diagnosis: hernia repair Discharge Goals: Decrease discomfort Activity: Per 'Additional Instructions' section Lifting: No more than 10 pounds Bathing Comment: sponge bath until drain removed, keep drain dry Driving/Machine Use Comment: when pain free Non-emergency contact: Surgeon Call non-emergency contact if: you have any medication questions, your pain is not controlled, your temperature is above 101.5, your wound has increased redness and your wound has increased drainage Follow-up/Referrals: Lewis Dow MD [Primary Care Provider] - Maximo Scruggs DO [Surgeon] - (Call the office on Sunday to make appt to have drain removed later next week) Diet: Regular Addtl Provider Instructions: Empty drain 2-3 times daily Prescriptions: New oxycodone-acetaminophen [Percocet] 5-325 mg tablet 1 - 2 tab PO Q4H PRN (Reason: pain) Qty: 15 RF: 0 Continued oxybutynin chloride 5 mg Tablet 5 mg PO QAM RF: 0 multivitamin Tablet 1 tab PO QAM RF: 0 cyanocobalamin (vitamin B-12) 100 mcg Tablet 100 mcg PO QAM RF: 0 atorvastatin [Lipitor] 10 mg Tablet 5 mg PO HS RF: 0 sertraline 100 mg Tablet 150 mg PO QAM RF: 0 ranitidine HCl 150 mg Tablet 150 mg PO HS RF: 0 fluticasone propion-salmeterol [Advair Diskus] 500-50 mcg/dose Blister With Device 1 inh INHALATION Q12H RF: 0 albuterol sulfate 90 mcg/actuation Hfa Aerosol Inhaler 1 - 2 puff INHALATION Q4H PRN (Reason: Shortness Of Breath) RF: 0 calcium carbonate-vitamin D3 [Calcium 500 With D] 500 mg(1,250mg) -400 unit Tablet 1 tab PO QAM RF: 0 Fish Oil 2 cap PO QAM RF: 0 Stand-Alone Forms: [employer], [facility] [employer]/Other Patient Handouts: Surgery Hernia, Repair Open Hernia Dc Discharge Orders: Discharge Order (Routine); Ordered 12/20/18 Ordered By: Merritt Michael Admission Data Admit Date/Time: 12/19/18 14:38 Attending Provider: Maximo Scruggs Admit Provider: Maximo Scruggs Primary Care Provider: Lewis Dow V. Service: Surgical Services Other Interventions: Discharge Summary Assessment (RN) Last Done: 12/20/18 10:26 DC Date/Time DO NOT enter until pt leaves facility: 12/20/18 13:17
== END 2018-12-20 13:17 | disposition home health service (06) ==
LOC: ASU 11:42 → 3W 11:42

== ENCOUNTER 2023-07-31 18:37 | Inpatient (IN) ==
[2023-07-31] MEDS ORDERED: MoRPHine SULFATE 4 MG/ML 1 ML CARP\\VIAL IV PRN (19:53)
[2023-07-31] MEDS ORDERED: MoRPHine SULFATE 2 MG/ML CARP IV PRN (19:53)
[2023-07-31] MEDS ORDERED: SODIUM CHLORIDE 0.9% 1,000 ML IV SCH (20:00)
[2023-07-31 20:17] LABS: Basophils # (auto) 0.04 K/uL (0.00-0.20); Basophils % (auto) 0.5 %; Eosinophils # (auto) 0.18 K/uL (0.00-0.50); Eosinophils % (auto) 2.2 %; Hematocrit (blood only) 42.9 % (37.0-47.0); Hemoglobin 14.5 g/dl (12.0-16.0); Immature Granulocytes # (auto) 0.03 K/uL (0.01-0.20); Immature Granulocytes % (auto) 0.4 %; Lymphocytes # (auto) 1.99 K/uL (1.20-3.40); Lymphocytes % (auto) 23.9 %; Mean Corpuscular Hemoglobin 31.9 pg (25.0-34.0); Mean Corpuscular Hgb Conc 33.8 g/dL (32.0-36.0); Mean Corpuscular Volume 94.3 fL (80.0-100.0); Mean Platelet Volume 9.3 fL (9.4-12.4); Monocytes # (auto) 0.76 K/uL (0.11-0.59); Monocytes % (auto) 9.1 %; Neutrophils # (auto) 5.33 K/uL (1.40-6.50); Neutrophils % (auto) 63.9 %; Platelet Count 270 K/uL (130-400); RDW Coefficient of Variation 13.4 % (11.5-14.5); RDW Standard Deviation 46.6 fL (36.4-46.3); Red Blood Count 4.55 M/uL (4.20-5.40); White Blood Count 8.33 K/ul (4.8-10.8)
[2023-07-31 20:33] LABS: Albumin Globulin Ratio 1.8 (0.9-2); Albumin Level 4.3 gm/dl (3.4-5.0); BUN Creatinine Ratio 23.8 (10-20); Bilirubin,Total 0.4 mg/dl (0.2-1.0); Calcium 9.4 mg/dl (8.6-10.3); Creatinine Clr Calc Pharmacy 54.7 ml/min; Est GFR (African American) 96.8 ml/min; Est GFR (Non-African American) 83.5 ml/min; Globulin 2.4 gm/dl (2.5-4.0); Potassium 3.8 mmol/L (3.5-5.1); Total Protein 6.7 gm/dl (6.0-8.3)
[2023-07-31 20:38] LABS: Appearance Urine Clear (Clear); Bacteria Urine Automated Negative (Negative); Bilirubin Urine Negative (Negative); Blood Urine Negative (Negative); Color Urine Yellow; Glucose Urine UA Negative (Negative); Ketones Urine 2+ (Negative); Leukocyte Esterase Urine 1+ (Negative); Nitrite Urine Negative (Negative); Protein Urine Negative (Negative); Specific Gravity Urine 1.024 (1.000-1.030); Urobilinogen Urine Negative (Negative)
[2023-07-31 20:44] LABS: Partial Thromboplastin Ratio 0.9; Partial Thromboplastin Time 25.8 Seconds (21.0-31.0); Prothrombin Time 10.9 Seconds (9.0-12.0)
[2023-07-31] MEDS ORDERED: HYDROmorphone INJ 0.5 MG/0.5 ML SYR IV PRN (21:00)
--- NOTE | 2023-07-31 21:08 | History & Physical Report ---
Date of Service July 31, 2023 Assessment & Plan (1) Left bundle branch block (LBBB) on electrocardiogram: (2) Closed left hip fracture: (3) Hyperlipidemia: (4) Chronic obstructive pulmonary disease: (5) Anxiety: (6) Depression: Plan Closed left hip fracture- NPO Geriatric hip fracture protocol order set Acetaminophen 650 mg by mouth every 6 hours as needed for mild pain or fever Dilaudid 0.25 mg IV every 3 hours as needed for moderate pain Dilaudid 0.5 mg every 3 hours as needed for severe pain Zofran 4 mg IV every 6 hours as needed Consult orthopedic surgery Dr. Gonzalez COPD- Continue routine inhalers from home Anxiety/depression- Resume sertraline and lorazepam postsurgery History of Present Illness Chief Complaint: The patient presents to the emergency department after a fall as she was going up steps toward a local restaurant, landing on her left hip and developing immediate pain and inability to bear weight Primary Care Provider: Lewis Dow MD The patient is a 82-year-old female with a past medical history including left bundle branch block, chronic dyspnea on exertion, anxiety, depression, SNHL, COPD, abnormal serum protein electrophoresis, and hyperlipidemia. She presents to the emergency department after a mechanical fall as she was walking up steps going to a local restaurant. She landed on her left hip, developed immediate pain and inability to bear weight. X-rays in the emergency department revealed a closed left hip fracture Allergies Allergy/AdvReac Type Severity Reaction Status Date / Time alendronate sodium Allergy Severe WEAKNESS Verified 07/31/23 20:08 HANDS hydroxyzine AdvReac Mild Verified 07/31/23 20:08 drowsiness/ fogginess Home Medications Medication Instructions Recorded Confirmed Type cyanocobalamin (vitamin B-12) 100 100 mcg PO QAM 12/09/18 07/31/23 History mcg tablet ascorbic acid (vitamin C) 1,000 mg 1 g PO DAILY 06/06/22 07/31/23 History capsule cholecalciferol (vitamin D3) 25 25 mcg PO DAILY 06/06/22 07/31/23 History mcg (1,000 unit) capsule lorazepam 0.5 mg tablet 0.5 mg PO DAILY PRN Anxiety 06/06/22 07/31/23 History atorvastatin 10 mg tablet 10 mg PO DAILY #90 tabs 11/20/22 07/31/23 Rx albuterol sulfate 90 mcg/actuation 1 puff inhalation Q4H PRN sob #18 03/24/23 07/31/23 Rx aerosol inhaler (ProAir HFA) grams fluticasone 500 mcg-salmeterol 50 1 inh inhalation Q12H #60 ea 03/29/23 07/31/23 Rx mcg/dose blistr powdr for inhalation (Advair Diskus) sertraline 100 mg tablet 100 mg PO DAILY #90 tabs 04/27/23 07/31/23 Rx oxybutynin chloride 5 mg 5 mg PO DAILY #90 tabs 07/18/23 07/31/23 Rx tablet,extended release 24 hr Past Med/Surg History Medical History (Updated 08/01/23 @ 01:03 by You Purcell MD) Hordeolum externum (stye) Hordeolum externum of right lower eyelid Postoperative seroma Balance problems Change in bowel habits Recurrent incisional hernia LBBB (left bundle branch block) CHRONIC DATING BACK TO AT LEAST 2009 Osteoarthritis Osteoporosis Overactive bladder Diverticular disease Depression Anxiety Hyperlipidemia Chronic obstructive pulmonary disease STABLE Surgical History 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 Scruggs 06/26/19 S/P hernia repair History of exploratory laparotomy Exploratory laparotomy, repair of recurrent ventral hernia with mesh, release of SBO= 12/19/17= Grade view 1, MAC 3, ETT 7.0 at [facility] Status post excision of lipoma LEFT ARM History of bilateral tubal ligation History of herniorrhaphy History of wisdom tooth extraction History of tonsillectomy History of colonoscopy History of colostomy reversal History of colostomy History of bowel resection 2/2 DIVERTICULITIS Family History Brother Family history of diabetes mellitus Family/Other Family history of diabetes mellitus Father Coronary heart disease Aunt Breast cancer Mother Dementia Grandfather (Maternal) Myocardial infarction Denies family history of Ovarian cancer Prostate cancer Colorectal cancer Social History (Reviewed 03/22/23 @ 17:21 by EDGAR Brandon Smoking Status: Heavy tobacco smoker Tobacco Type: Cigarettes Second Hand Exposure: No; Do You Dip or Chew Tobacco: No; Hx Alcohol Use: Yes Alcohol type: beer and wine Alcohol Intake Frequency: 4 or More x per/Week Hx Substance Use: No Preferred Language: Malawian Communication Ability: Effective Visual Impairment: No Limitations Hearing Ability: Normal Cupola Tender Helper Required: No Beliefs That Will Affect Care: None marital status: / Current Living Situation: Significant Other Current Living Situation Comment: [facility] current occupational status: retired Other Information That Helps Us Care for You: No Feels Safe at Home: Yes Safety Concerns: Feels Safe At This Time Childhood Exposure to Second-Hand Smoke: No Diet: regular Dental Care, Regularly: Yes Physical Activity Frequency: Daily Physical Activity Frequency Comment: walk, Seatbelt Use: always Sunscreen Use: No Assistive Devices: Denture - Upper, Denture - Lower and Glasses Review of Systems Review of Systems: The patient denies chest pain, palpitations, change in her chronic shortness of breath and dyspnea on exertion, cough, lower extremity swelling, sore throat, fevers, chills, sweats, weight change, fatigue, nausea, vomiting, diarrhea , constipation, abdominal pain, pelvic pain, blood in urine or stool, dysuria, urinary frequency or urgency, lightheadedness, dizziness, headache, memory loss, loss of consciousness, rash, abnormal bruising or bleeding, focal or generalized weakness, numbness or tingling in arms or right leg, generalized arthralgias or myalgias, back or neck pain, or night sweats. The review of systems is otherwise negative other than for that already noted above, and at least 10 systems have been reviewed. Physical Exam Physical Exam: The patient is awake, alert and oriented 3, well developed and well nourished, normocephalic and atraumatic, lying in bed and in acute distress only when her left leg is moved. HEENT--PERRL, EOMI, mucous membranes and oropharynx normal Neck--supple. No JVD. No bruits. Thyroid normal, trachea midline, no adenopathy. Heart--normal S1 and S2. No murmurs, rubs or gallops. Lungs--clear bilaterally, no respiratory distress, no accessory muscle use. Abdomen--normal bowel sounds and soft. Nontender. Nondistended, no hernias or masses, no organomegaly. Extremities--no cyanosis or clubbing. No edema. There are good distal pulses b /l. Dermatologic--normal skin turgor, normal color, no abnormal lymph nodes, no rash. Neurologic--cranial nerves II through XII grossly intact. Rheumatologic-- limited exam due to left hip pain Psychiatric--normal affect. Results & Data Results & Data Vital Signs (Past 12 Hours) Vital Signs Temp Pulse Resp BP Pulse Ox O2 Del Method 07/31/23 19:07 63 07/31/23 18:46 36.2 C L 59 L 16 178/76 H 97 Room Air Laboratory Results Laboratory Results WBC 8.33 K/ul (4.8-10.8) 07/31/23 19:30 RBC 4.55 M/uL (4.20-5.40) 07/31/23 19:30 Hgb 14.5 g/dl (12.0-16.0) 07/31/23 19: Hct 42.9 % (37.0-47.0) 07/31/23 19:30 MCV 94.3 fL (80.0-100.0) 07/31/23 19: MCH 31.9 pg (25.0-34.0) 07/31/23 19:30 MCHC 33.8 g/dL (32.0-36.0) 07/31/23 19:30 RDW Std Deviation 46.6 fL (36.4-46.3) H 07/31/23:30 RDW Coeff of Junaid 13.4 % (11.5-14.5) 07/31/23 19: Plt Count 270 K/uL (130-400) 07/31/23 19:30 MPV 9.3 fL (9.4-12.4) L 07/31/23: Immature Gran % (Auto) 0.4 % 07/31/23: Neut % (Auto) 63.9 % 07/31/23:30 Lymph % (Auto) 23.9 % 07/31/23: [place] % (Auto) 9.1 % 07/31/23: Eos % (Auto) 2.2 % 07/31/23:30 Baso % (Auto) 0.5 % 07/31/23 19:30 Neut # (Auto) 5.33 K/uL (1.40-6.50) 07/31/23 19:30 Lymph # (Auto) 1.99 K/uL (1.20-3.40) 07/31/23 19:30 [place] # (Auto) 0.76 K/uL (0.11-0.59) H 07/31/23 19:30 Eos # (Auto) 0.18 K/uL (0.00-0.50) 07/31/23 19:30 Baso # (Auto) 0.04 K/uL (0.00-0.20) 07/31/23 19:30 Immature Gran # (Auto) 0.03 K/uL (0.01-0.20) 07/31/23 19:30 PT 10.9 Seconds (9.0-12.0) 07/31/23 19:30 INR 1.0 (0.9-1.1) 07/31/23 19:30 APTT 25.8 Seconds (21.0-31.0) 07/31/23 19:30 PTT Ratio 0.9 07/31/23 19:30 Sodium 140 mmol/L (136-145) 07/31/23 19:30 Potassium 3.8 mmol/L (3.5-5.1) 07/31/23 19:30 Chloride 106 mmol/L (98-107) 07/31/23 19:30 Carbon Dioxide 26 mmol/L (21-32) 07/31/23 19:30 Anion Gap 8 (3-11) 07/31/23 19:30 BUN 15 mg/dl (6-23) 07/31/23 19:30 Creatinine 0.63 mg/dl (0.6-1.2) 07/31/23 19:30 Est Cr Clr Drug Dosing 54.7 ml/min 07/31/23 19:30 Est GFR ( Amer) 96.8 ml/min 07/31/23 19:30 Est GFR (Non-Af Amer) 83.5 ml/min 07/31/23 19:30 BUN/Creatinine Ratio 23.8 (10-20) H 07/31/23 19:30 Glucose 103 mg/dl (70-99(Fasting)) H 07/31/23 19:30 Calcium 9.4 mg/dl (8.6-10.3) 07/31/23 19:30 Total Bilirubin 0.4 mg/dl (0.2-1.0) 07/31/23 19:30 AST 18 U/L (13-39) 07/31/23 19:30 ALT 13 U/L (7-52) 07/31/23 19:30 Alkaline Phosphatase 43 U/L (34-104) 07/31/23 19:30 Total Protein 6.7 gm/dl (6.0-8.3) 07/31/23 19:30 Albumin 4.3 gm/dl (3.4-5.0) 07/31/23 19:30 Globulin 2.4 gm/dl (2.5-4.0) L 07/31/23 19:30 Albumin/Globulin Ratio 1.8 (0.9-2) 07/31/23 19:30 Urine Color Yellow 07/31/23 20:18 Urine Appearance Clear (Clear) 07/31/23 20:18 Urine pH 5.0 (4.5-7.5) 07/31/23 20:18 Ur Specific [place] 1.024 (1.000-1.030) 07/31/23 20:18 Urine Protein Negative (Negative) 07/31/23 20:18 Urine Glucose (UA) Negative (Negative) 07/31/23 20:18 Urine Ketones 2+ (Negative) H 07/31/23 20:18 Urine Blood Negative (Negative) 07/31/23 20:18 Urine Nitrite Negative (Negative) 07/31/23 20:18 Urine Bilirubin Negative (Negative) 07/31/23 20:18 Urine Urobilinogen Negative (Negative) 07/31/23 20:18 Ur Leukocyte Esterase 1+ (Negative) H 07/31/23 20:18 Urine WBC (Auto) 5-10 /hpf (0-5) H 07/31/23 20:18 Urine RBC (Auto) 5-10 /hpf (0-4) H 07/31/23 20:18 U Hyaline Cast (Auto) 1-5 /lpf (0-5) 07/31/23 20:18 U Epithel Cells (Auto) 5-10 /lpf (0-5) H 07/31/23 20:18 Urine Bacteria (Auto) Negative (Negative) 07/31/23 20:18 Impressions Femur X-Ray 07/31/23 18:57 SINGLE VIEW PELVIS; 2 VIEWS LEFT FEMUR CLINICAL HISTORY: Fall. Left leg injury. FINDINGS: AP views of the pelvis with AP and crosstable lateral views of the left femur are obtained. Correlation is made with pelvic CT dated 12/11/2016. The skeletal structures are osteopenic. There is no radiographic evidence of acute fracture involving the right hip or the bony pelvis. There is an angulated intertrochanteric fracture of the left femur with overlying soft tissue edema. The distal left femur appears intact. Mild arthritic change and joint space narrowing is seen in the hips. There is degenerative sclerosis of the sacroiliac joints. Lumbosacral spondylosis is partially visualized. The left knee joint is grossly maintained. Suture material and phleboliths are noted in the pelvis. IMPRESSION: 1. Intertrochanteric fracture of the left proximal femur as above. 2. No additional fracture is seen involving the right hip or bony pelvis. Electronically signed by: Kalia Serrano M.D. 07/31/2023 9:39 PM Pelvis X-Ray 07/31/23 18:57 SINGLE VIEW PELVIS; 2 VIEWS LEFT FEMUR CLINICAL HISTORY: Fall. Left leg injury. FINDINGS: AP views of the pelvis with AP and crosstable lateral views of the left femur are obtained. Correlation is made with pelvic CT dated 12/11/2016. The skeletal structures are osteopenic. There is no radiographic evidence of acute fracture involving the right hip or the bony pelvis. There is an angulated intertrochanteric fracture of the left femur with overlying soft tissue edema. The distal left femur appears intact. Mild arthritic change and joint space narrowing is seen in the hips. There is degenerative sclerosis of the sacroiliac joints. Lumbosacral spondylosis is partially visualized. The left knee joint is grossly maintained. Suture material and phleboliths are noted in the pelvis. IMPRESSION: 1. Intertrochanteric fracture of the left proximal femur as above. 2. No additional fracture is seen involving the right hip or bony pelvis. Electronically signed by: Kalia Serrano M.D. 07/31/2023 9:39 PM Code Status & VTE Plan Code Status Full code VTE Prophylaxis Plan VTE Prophylaxis will be ordered: Yes PG Care Time/CCT Total # of Minutes Spent Total Time Spent with Patient: Total time spent is greater than 50% in coordination of care (as documented) at patient's floor/unit and/or counseling patient: Coding Level of Care Code 16817 INT INP/OBS CARE 3/75MIN Diagnoses Left bundle branch block (LBBB) on electrocardiogram I44.7 Closed left hip fracture S72.002A Hyperlipidemia E78.5 Chronic obstructive pulmonary disease J44.9 Anxiety F41.9 Depression F32.9
--- NOTE | 2023-07-31 21:41 | XRay Report ---
SINGLE VIEW PELVIS; 2 VIEWS LEFT FEMUR CLINICAL HISTORY: Fall. Left leg injury. FINDINGS: AP views of the pelvis with AP and crosstable lateral views of the left femur are obtained. Correlation is made with pelvic CT dated 12/11/2016. The skeletal structures are osteopenic. There is no radiographic evidence of acute fracture involving the right hip or the bony pelvis. There is an a ngulated intertrochanteric fracture of the left femur with overlying soft tissue edema. The distal le ft femur appears intact. Mild arthritic change and joint space narrowing is seen in the hips. There i s degenerative sclerosis of the sacroiliac joints. Lumbosacral spondylosis is partially visualized. T he left knee joint is grossly maintained. Suture material and phleboliths are noted in the pelvis. IMPRESSION: 1. Intertrochanteric fracture of the left proximal femur as above. 2. No additional fracture is seen involving the right hip or bony pelvis. Electronically signed by: Kalia Serrano M.D. 07/31/2023 9:39 PM
[2023-07-31] MEDS ORDERED: ONDANSETRON INJ 2 MG/ML 2 ML VIAL IV PRN ×2 (22:05→22:38)
[2023-07-31] MEDS ORDERED: ONDANSETRON INJ 2 MG/ML 2 ML VIAL IV STA (22:06)
[2023-07-31] MEDS ORDERED: ONDANSETRON INJ 2 MG/ML 2 ML VIAL ONE (22:11)
[2023-07-31] MEDS ORDERED: LORazepam 0.5 MG TAB PO PRN (22:38)
[2023-07-31] MEDS ORDERED: bisacodyL 10 MG SUPP PR PRN (22:38)
[2023-07-31] MEDS ORDERED: ALBUTEROL HFA 8 GM INHALER INH PRN (22:38)
[2023-07-31] MEDS ORDERED: NALOXONE HCL 0.4 MG/1 ML VIAL/CARP IV PRN (22:38)
[2023-07-31] MEDS ORDERED: MAGNESIUM HYDROXIDE SUSP 30 ML UDC PO PRN (22:38)
[2023-07-31] MEDS: HYDROmorphone INJ 0.5 MG/0.5 ML SYR IV PRN (23:47)
--- NOTE | 2023-08-01 01:25 | Emergency Department Note ---
History of Present Illness General Chief complaint: Hip Pain Stated complaint: FELL, L HIP PAIN Time Seen by Provider: 07/31/23 18:52 History of Present Illness Provider complaint: Left hip pain Onset (ago): hour(s) 1 Location: lower extremity and left Radiation: non-radiation Severity: moderate Pain Consistency: + constant Maximum Pain Intensity: 8 Current Pain Intensity: 8 Quality: + stabbing and + sharp Relieved By: + none Exacerbated By: + none Associated symptoms: no chest pain, no headaches, no nausea/vomiting or no shortness of breath 82-year-old female presents emergency department for left hip pain. Patient reports that she fell less than 1 hour ago at a restaurant. She is reporting pain in her left hip. Patient denies hitting her head. No chest or abdominal pain. No blood thinners. Home Medications Medication Instructions Recorded Confirmed Type cyanocobalamin (vitamin B-12) 100 100 mcg PO QAM 12/09/18 07/31/23 History mcg tablet ascorbic acid (vitamin C) 1,000 mg 1 g PO DAILY 06/06/22 07/31/23 History capsule cholecalciferol (vitamin D3) 25 25 mcg PO DAILY 06/06/22 07/31/23 History mcg (1,000 unit) capsule lorazepam 0.5 mg tablet 0.5 mg PO DAILY PRN Anxiety 06/06/22 07/31/23 History atorvastatin 10 mg tablet 10 mg PO DAILY #90 tabs 11/20/22 07/31/23 Rx albuterol sulfate 90 mcg/actuation 1 puff inhalation Q4H PRN sob #18 03/24/23 07/31/23 Rx aerosol inhaler (ProAir HFA) grams fluticasone 500 mcg-salmeterol 50 1 inh inhalation Q12H #60 ea 03/29/23 07/31/23 Rx mcg/dose blistr powdr for inhalation (Advair Diskus) sertraline 100 mg tablet 100 mg PO DAILY #90 tabs 04/27/23 07/31/23 Rx oxybutynin chloride 5 mg 5 mg PO DAILY #90 tabs 07/18/23 07/31/23 Rx tablet,extended release 24 hr Allergies Allergy/AdvReac Type Severity Reaction Status Date / Time alendronate sodium Allergy Severe WEAKNESS Verified 07/31/23 20:08 HANDS hydroxyzine AdvReac Mild Verified 07/31/23 20:08 drowsiness/ fogginess Past Med/Surg History Medical History Hordeolum externum (stye) Hordeolum externum of right lower eyelid Postoperative seroma Balance problems Change in bowel habits Recurrent incisional hernia LBBB (left bundle branch block) CHRONIC DATING BACK TO AT LEAST 2009 Osteoarthritis Osteoporosis Overactive bladder Diverticular disease Depression Anxiety Hyperlipidemia Chronic obstructive pulmonary disease STABLE Surgical History 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 Scruggs 06/26/19 S/P hernia repair History of exploratory laparotomy Exploratory laparotomy, repair of recurrent ventral hernia with mesh, release of SBO= 12/19/17= Grade view 1, MAC 3, ETT 7.0 at [facility] Status post excision of lipoma LEFT ARM History of bilateral tubal ligation History of herniorrhaphy History of wisdom tooth extraction History of tonsillectomy History of colonoscopy History of colostomy reversal History of colostomy History of bowel resection 2/2 DIVERTICULITIS Family History Brother Family history of diabetes mellitus Family/Other Family history of diabetes mellitus Father Coronary heart disease Aunt Breast cancer Mother Dementia Grandfather (Maternal) Myocardial infarction Denies family history of Ovarian cancer Prostate cancer Colorectal cancer Social History Smoking Status: Heavy tobacco smoker Tobacco Type: Cigarettes Second Hand Exposure: No; Do You Dip or Chew Tobacco: No; Hx Alcohol Use: Yes Alcohol type: beer and wine Alcohol Intake Frequency: 4 or More x per/Week Hx Substance Use: No Preferred Language: German Communication Ability: Effective Visual Impairment: No Limitations Hearing Ability: Normal [employer] Required: No Beliefs That Will Affect Care: None marital status: / Current Living Situation: Significant Other Current Living Situation Comment: [facility] current occupational status: retired Other Information That Helps Us Care for You: No Feels Safe at Home: Yes Safety Concerns: Feels Safe At This Time Childhood Exposure to Second-Hand Smoke: No Diet: regular Dental Care, Regularly: Yes Physical Activity Frequency: Daily Physical Activity Frequency Comment: walk, Seatbelt Use: always Sunscreen Use: No Assistive Devices: Denture - Upper, Denture - Lower and Glasses Physical Exam Vital Signs Vital Signs - 24 hr 07/31/23 18:46 07/31/23 19:07 07/31/23 19:07 Temperature 36.2 C L Temperature Source Oral Pulse Rate 59 L 63 62 Pulse Rate from SpO2 Sensor 60 Respiratory Rate 16 18 Blood Pressure 178/76 H Blood Pressure Mean 110 Pulse Oximetry 97 98 Oxygen Delivery Method Room Air Sepsis Recent Fever Within 48 Hours No Sepsis New/Unexplained Change in Mental Status N/A Sepsis Action Taken by Nursing No Action Required 07/31/23 19:10 07/31/23 19:20 07/31/23 19:30 Temperature Temperature Source Pulse Rate 57 L 64 55 L Pulse Rate from SpO2 Sensor 60 66 Respiratory Rate 17 9 L 29 H Blood Pressure Blood Pressure Mean Pulse Oximetry 99 97 Oxygen Delivery Method Sepsis Recent Fever Within 48 Hours Sepsis New/Unexplained Change in Mental Status Sepsis Action Taken by Nursing 07/31/23 19:40 07/31/23 19:50 07/31/23 20:00 Temperature Temperature Source Pulse Rate 53 L 60 71 Pulse Rate from SpO2 Sensor 55 L 60 63 Respiratory Rate 18 16 16 Blood Pressure Blood Pressure Mean Pulse Oximetry 95 97 95 Oxygen Delivery Method Sepsis Recent Fever Within 48 Hours Sepsis New/Unexplained Change in Mental Status Sepsis Action Taken by Nursing 07/31/23 20:10 07/31/23 20:20 07/31/23 20:30 Temperature Temperature Source Pulse Rate 55 L 55 L 65 Pulse Rate from SpO2 Sensor 54 L 58 L 63 Respiratory Rate 17 13 15 Blood Pressure Blood Pressure Mean Pulse Oximetry 98 96 97 Oxygen Delivery Method Sepsis Recent Fever Within 48 Hours Sepsis New/Unexplained Change in Mental Status Sepsis Action Taken by Nursing 07/31/23 20:40 07/31/23 20:50 07/31/23 21:00 Temperature Temperature Source Pulse Rate 60 72 66 Pulse Rate from SpO2 Sensor 56 L 74 71 Respiratory Rate 14 17 15 Blood Pressure Blood Pressure Mean Pulse Oximetry 97 91 94 Oxygen Delivery Method Sepsis Recent Fever Within 48 Hours Sepsis New/Unexplained Change in Mental Status Sepsis Action Taken by Nursing Physical Exam GENERAL: oriented to person, place, and time. appears well-developed and well- nourished. HENT: Exam performed. - Head: Normocephalic and atraumatic. EYES: Conjunctivae and EOM are normal. Right eye exhibits no discharge. Left eye exhibits no discharge. No scleral icterus. NECK: Normal range of motion. Neck supple. No JVD present. No pain on palpation of the C-spine CV: Normal rate, regular rhythm, normal heart sounds and intact distal pulses. There is no peripheral edema. Palpable radial pulses bue. PULM/CHEST: Effort normal and breath sounds normal. No respiratory distress. No stridor. no wheezes. no rales. ABD: The abdomen is soft. There is no tenderness. MUSC: Pain on palpation of the left hip and left femur reproducing chief complaint. Palpable DP and PT pulse bilateral lower extremities. Left lower extremity is shortened and externally rotated. SKIN: Skin is warm and dry. He is not diaphoretic. PSYCH: normal mood and affect. Behavior is normal. Judgment and thought content normal. Course Course 1851: The patient was evaluated in room B9. A complete history and physical exam was performed Cardiac monitoring: An order was placed for continuous cardiac monitoring. The monitor shows a rate of 60 with sinus rhythm interpreted by me 1945: X-ray shows left-sided hip fracture. Patient reports no headache no head of head. Daughter is here at bedside confirms this. No chest pain or abdominal pain. Patient will be admitted to the hospital service with orthopedics on consult for hip fracture. Hip fracture order set initiated. Administered Medications Hydromorphone HCl (Hydromorphone Inj 0.5 Mg/0.5 Ml Syr) 0.5 mg IV Q3H PRN PRN Reason: Severe Pain (Scale 7, 8, 9,10) Stop: 08/14/23 20:59 Last Admin: 07/31/23 23:47 Dose: 0.5 mg Documented By: PLF Discontinued Medications Sodium Chloride (Nss) 1,000 mls @ 75 mls/hr IV .[id number] INEZ Stop: 08/01/23 09:19 Last Admin: 07/31/23 20:01 Dose: 75 mls/hr Documented By: CINTHIA Morphine Sulfate (Morphine Sulfate 2 Mg/Ml Carp) 2 mg IV Q2H PRN PRN Reason: Moderate Pain (Rating 3,4,5,6) Stop: 08/14/23 19:52 Last Admin: 07/31/23 22:13 Dose: 2 mg Documented By: NASREEN Morphine Sulfate (Morphine Sulfate 4 Mg/Ml 1 Ml Carp\Vial) 4 mg IV Q2H PRN PRN Reason: Severe Pain (Rating 7,8,9,10) Stop: 08/14/23 19:52 Last Admin: 07/31/23 20:01 Dose: 4 mg Documented By: CINTHIA Ondansetron HCl (Ondansetron Inj 2 Mg/Ml 2 Ml Vial) 4 mg IV NOW STA Stop: 07/31/23 22:07 Last Admin: 07/31/23 22:13 Dose: 4 mg Documented By: NASREEN Ondansetron HCl (Ondansetron Inj 2 Mg/Ml 2 Ml Vial) Confirm Administered Dose 4 mg .ROUTE .STK-MED ONE Stop: 07/31/23 22:12 Last Admin: 07/31/23 22:13 Dose: Not Given Documented By: NASREEN Medical Decision Making Laboratory Data Attestation: I reviewed the patient's lab results. 07/31/23 19:30 07/31/23 19:30 Lab Results 07/31/23 07/31/23 Range/Units 19:30 20:18 WBC 8.33 (4.8-10.8) K/ul RBC 4.55 (4.20-5.40) M/uL Hgb 14.5 (12.0-16.0) g/dl Hct 42.9 (37.0-47.0) % MCV 94.3 (80.0-100.0) fL MCH 31.9 (25.0-34.0) pg MCHC 33.8 (32.0-36.0) g/dL RDW Std Deviation 46.6 H (36.4-46.3) fL RDW Coeff of Junaid 13.4 (11.5-14.5) % Plt Count 270 (130-400) K/uL MPV 9.3 L (9.4-12.4) fL Immature Gran % (Auto) 0.4 % Neut % (Auto) 63.9 % Lymph % (Auto) 23.9 % [place] % (Auto) 9.1 % Eos % (Auto) 2.2 % Baso % (Auto) 0.5 % Neut # (Auto) 5.33 (1.40-6.50) K/uL Lymph # (Auto) 1.99 (1.20-3.40) K/uL [place] # (Auto) 0.76 H (0.11-0.59) K/uL Eos # (Auto) 0.18 (0.00-0.50) K/uL Baso # (Auto) 0.04 (0.00-0.20) K/uL Immature Gran # (Auto) 0.03 (0.01-0.20) K/uL PT 10.9 (9.0-12.0) Seconds INR 1.0 (0.9-1.1) APTT 25.8 (21.0-31.0) Seconds PTT Ratio 0.9 Sodium 140 (136-145) mmol/L Potassium 3.8 (3.5-5.1) mmol/L Chloride 106 (98-107) mmol/L Carbon Dioxide 26 (21-32) mmol/L Anion Gap 8 (3-11) BUN 15 (6-23) mg/dl Creatinine 0.63 (0.6-1.2) mg/dl Est Cr Clr Drug Dosing 54.7 ml/min Est GFR ( Amer) 96.8 ml/min Est GFR (Non-Af Amer) 83.5 ml/min BUN/Creatinine Ratio 23.8 H (10-20) Glucose 103 H (70-99(Fasting)) mg/dl Calcium 9.4 (8.6-10.3) mg/dl Total Bilirubin 0.4 (0.2-1.0) mg/dl AST 18 (13-39) U/L ALT 13 (7-52) U/L Alkaline Phosphatase 43 (34-104) U/L Total Protein 6.7 (6.0-8.3) gm/dl Albumin 4.3 (3.4-5.0) gm/dl Globulin 2.4 L (2.5-4.0) gm/dl Albumin/Globulin Ratio 1.8 (0.9-2) Urine Color Yellow Urine Appearance Clear (Clear) Urine pH 5.0 (4.5-7.5) Ur Specific [place] 1.024 (1.000-1.030) Urine Protein Negative (Negative) Urine Glucose (UA) Negative (Negative) Urine Ketones 2+ H (Negative) Urine Blood Negative (Negative) Urine Nitrite Negative (Negative) Urine Bilirubin Negative (Negative) Urine Urobilinogen Negative (Negative) Ur Leukocyte Esterase 1+ H (Negative) Urine WBC (Auto) 5-10 H (0-5) /hpf Urine RBC (Auto) 5-10 H (0-4) /hpf U Hyaline Cast (Auto) 1-5 (0-5) /lpf U Epithel Cells (Auto) 5-10 H (0-5) /lpf Urine Bacteria (Auto) Negative (Negative) Imaging Data Attestation: I personally reviewed and interpreted this imaging study as follows: My Impression: Pelvis x-ray: Left hip fracture Radiologist's Impression: Femur X-Ray 07/31/23 18:57 SINGLE VIEW PELVIS; 2 VIEWS LEFT FEMUR CLINICAL HISTORY: Fall. Left leg injury. FINDINGS: AP views of the pelvis with AP and crosstable lateral views of the left femur are obtained. Correlation is made with pelvic CT dated 12/11/2016. The skeletal structures are osteopenic. There is no radiographic evidence of acute fracture involving the right hip or the bony pelvis. There is an angulated intertrochanteric fracture of the left femur with overlying soft tissue edema. The distal left femur appears intact. Mild arthritic change and joint space narrowing is seen in the hips. There is degenerative sclerosis of the sacroiliac joints. Lumbosacral spondylosis is partially visualized. The left knee joint is grossly maintained. Suture material and phleboliths are noted in the pelvis. IMPRESSION: 1. Intertrochanteric fracture of the left proximal femur as above. 2. No additional fracture is seen involving the right hip or bony pelvis. Electronically signed by: Kalia Serrano M.D. 07/31/2023 9:39 PM Pelvis X-Ray 07/31/23 18:57 SINGLE VIEW PELVIS; 2 VIEWS LEFT FEMUR CLINICAL HISTORY: Fall. Left leg injury. FINDINGS: AP views of the pelvis with AP and crosstable lateral views of the left femur are obtained. Correlation is made with pelvic CT dated 12/11/2016. The skeletal structures are osteopenic. There is no radiographic evidence of acute fracture involving the right hip or the bony pelvis. There is an angulated intertrochanteric fracture of the left femur with overlying soft tissue edema. The distal left femur appears intact. Mild arthritic change and joint space narrowing is seen in the hips. There is degenerative sclerosis of the sacroiliac joints. Lumbosacral spondylosis is partially visualized. The left knee joint is grossly maintained. Suture material and phleboliths are noted in the pelvis. IMPRESSION: 1. Intertrochanteric fracture of the left proximal femur as above. 2. No additional fracture is seen involving the right hip or bony pelvis. Electronically signed by: Kalia Serrano M.D. 07/31/2023 9:39 PM ECG Data Attestation: I personally reviewed and interpreted this ECG as follows: Rate (beats per minute): 76 Rhythm: + normal sinus ECG Intervals/blocks: + Left bundle branch block Comparison ECG Date: from (2021) Change: no significant change (Left bundle branch block is known and present on previous EKGs in the EMR.) Additional Comments: [place] 224 QRS 138 QTc 474. sgarbosa negative MDM Narrative 1852: The patient was evaluated in room B9. A complete history and physical exam was performed Cardiac monitoring: An order was placed for continuous cardiac monitoring. The monitor shows a rate of 60 with sinus rhythm interpreted by me 1945: X-ray shows left-sided hip fracture. Patient reports no headache no head of head. Daughter is here at bedside confirms this. No chest pain or abdominal pain. Patient will be admitted to the hospital service with orthopedics on consult for hip fracture. Hip fracture order set initiated. Impression & Plan Closed left hip fracture Discharge Plan Visit Data Chief Complaint: Hip Pain Stated Complaint: FELL, L HIP PAIN ED Provider: Sean Chatterjee Discharge Problem: Closed left hip fracture Patient Disposition: Admitted As Inpatient Discharge Instructions Interventions: ED Discharge Assessment Last Done: 07/31/23 22:19 Discharge Problem: Closed left hip fracture Qualifiers: Encounter type: initial encounter Qualified Code(s): S72.002A - Fracture of unspecified part of neck of left femur, initial encounter for closed fracture
[2023-08-01] MEDS: ACETAMINOPHEN 325 MG TAB PO PRN ×2 (04:20→20:23)
[2023-08-01] MEDS: HYDROmorphone INJ 0.5 MG/0.5 ML SYR IV PRN ×2 (04:20→07:47)
[2023-08-01] MEDS ORDERED: ceFAZolin 2000MG 2,000 MG/15 ML SYR IV SCH (06:00)
[2023-08-01] MEDS: NSS + 20MEQ KCL 20 MEQ/1,000 ML BAG IV SCH ×2 (07:31→14:15)
[2023-08-01] MEDS: SERTRALINE HCL 100 MG TABLET PO SCH (07:32)
[2023-08-01] MEDS: FLUTICASONE/VILANTEROL 200/25MCG 14 PUFFS/INHALER INH SCH (07:32)
[2023-08-01] MEDS: CHOLECALCIFEROL 1,000 UNITS 25 MCG TAB PO SCH (07:32)
--- NOTE | 2023-08-01 08:58 | Anesthesiology Consultation ---
Date of Service August 01, 2023 Assessment & Plan Chart Review Chart Review: Acceptable Risk for Surgery and Patient NOT seen in Pre Admission Testing Consults Requested none History Surgery Operation Date: 08/01/23 07:00 Proposed Procedures p Left Short Trochanteric Nail(Left) - Kanu Gonzalez DO Height/Weight Height: 5 ft Weight: 50.349 kg Allergies Allergy/AdvReac Type Severity Reaction Status Date / Time alendronate sodium Allergy Severe WEAKNESS Verified 07/31/23 20:08 HANDS hydroxyzine AdvReac Mild Verified 07/31/23 20:08 drowsiness/ fogginess Medications Home Medications Medication Instructions Recorded Confirmed Last Taken cyanocobalamin (vitamin B-12) 100 100 mcg PO QAM 12/09/18 07/31/23 07/31/23 mcg tablet ascorbic acid (vitamin C) 1,000 mg 1 g PO DAILY 06/06/22 07/31/23 07/31/23 capsule cholecalciferol (vitamin D3) 25 25 mcg PO DAILY 06/06/22 07/31/23 07/31/23 mcg (1,000 unit) capsule lorazepam 0.5 mg tablet 0.5 mg PO DAILY PRN Anxiety 06/06/22 07/31/23 Unknown atorvastatin 10 mg tablet 10 mg PO DAILY #90 tabs 11/20/22 07/31/23 07/31/23 albuterol sulfate 90 mcg/actuation 1 puff inhalation Q4H PRN sob #18 03/24/23 07/31/23 Unknown aerosol inhaler (ProAir HFA) grams fluticasone 500 mcg-salmeterol 50 1 inh inhalation Q12H #60 ea 03/29/23 07/31/23 07/31/23 08:00 mcg/dose blistr powdr for inhalation (Advair Diskus) sertraline 100 mg tablet 100 mg PO DAILY #90 tabs 04/27/23 07/31/23 07/31/23 oxybutynin chloride 5 mg 5 mg PO DAILY #90 tabs 07/18/23 07/31/23 07/31/23 tablet,extended release 24 hr Active Medications Generic Name Dose Route Start Last Admin Trade Name Freq PRN Reason Stop Dose Admin Acetaminophen 650 mg 07/31/23 22:38 08/01/23 04:20 Acetaminophen 325 Mg Tab PO 08/30/23 22:37 650 mg Q4H PRN Administration pain/fever Fluticasone/Vilanterol 1 puffs 08/01/23 09:00 08/01/23 07:32 Fluticasone/Vilanterol 200/25mcg 14 Puffs/Inhaler INH 08/31/23 08:59 1 puffs DAILY INEZ Administration Hydromorphone HCl 0.5 mg 07/31/23 21:00 08/01/23 07:47 Hydromorphone Inj 0.5 Mg/0.5 Ml Syr IV 08/14/23 20:59 0.5 mg Q3H PRN Administration Severe Pain (Scale 7, 8, 9,10) Potassium Chloride/Sodium Chloride 20 meq in 1,000 mls @ 80 mls/hr 07/31/23 23:00 08/01/23 07:31 Normal Saline W/20 Meq Kcl IV 08/30/23 20:59 80 mls/hr .[id number] INEZ Administration Protocol Sertraline HCl 100 mg 08/01/23 09:00 08/01/23 07:32 Sertraline Hcl 100 Mg Tablet PO 08/31/23 08:59 100 mg DAILY INEZ Administration Vitamin D 1,000 units 08/01/23 09:00 08/01/23 07:32 Cholecalciferol 1,000 Units 25 Mcg Tab PO 08/31/23 08:59 1,000 units DAILY INEZ Administration Past Medical History Medical History Hordeolum externum (stye) Hordeolum externum of right lower eyelid Postoperative seroma Balance problems Change in bowel habits Recurrent incisional hernia LBBB (left bundle branch block) CHRONIC DATING BACK TO AT LEAST 2009 Osteoarthritis Osteoporosis Overactive bladder Diverticular disease Depression Anxiety Hyperlipidemia Chronic obstructive pulmonary disease STABLE Past Family History Family History Brother Family history of diabetes mellitus Family/Other Family history of diabetes mellitus Father Coronary heart disease Aunt Breast cancer Mother Dementia Grandfather (Maternal) Myocardial infarction Denies family history of Ovarian cancer Prostate cancer Colorectal cancer Past Surgical History Surgical History 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 Scruggs 06/26/19 S/P hernia repair History of exploratory laparotomy Exploratory laparotomy, repair of recurrent ventral hernia with mesh, release of SBO= 12/19/17= Grade view 1, MAC 3, ETT 7.0 at [facility] Status post excision of lipoma LEFT ARM History of bilateral tubal ligation History of herniorrhaphy History of wisdom tooth extraction History of tonsillectomy History of colonoscopy History of colostomy reversal History of colostomy History of bowel resection 2/2 DIVERTICULITIS Social History Smoking Status: Heavy tobacco smoker Do You Dip or Chew Tobacco: No Hx Alcohol Use: Yes Alcohol type: beer and wine alcohol intake frequency: a few times a week Hx Substance Use: No substance use type: does not use Physical Exam Vital Signs Last Vital Signs Temp 36.9 C 08/01/23 07:25 Pulse 78 08/01/23 07:25 Resp 18 08/01/23 07:25 BP 113/63 08/01/23 07:25 Pulse Ox 93 08/01/23 07:25 O2 Del Method Nasal Cannula 08/01/23 07:59 O2 Flow Rate 2 08/01/23 07:59 Testing Laboratory Results 07/31/23 19:30 07/31/23 19:30 PT 10.9 Seconds (9.0-12.0) 07/31/23 19:30 INR 1.0 (0.9-1.1) 07/31/23 19:30 APTT 25.8 Seconds (21.0-31.0) 07/31/23 19:30 Urine Color Yellow 07/31/23 20:18 Urine Appearance Clear (Clear) 07/31/23 20:18 Urine pH 5.0 (4.5-7.5) 07/31/23 20:18 Ur Specific [place] 1.024 (1.000-1.030) 07/31/23 20:18 Urine Protein Negative (Negative) 07/31/23 20:18 Urine Glucose (UA) Negative (Negative) 07/31/23 20:18 Urine Ketones 2+ (Negative) H 07/31/23 20:18 Urine Nitrite Negative (Negative) 07/31/23 20:18 Ur Leukocyte Esterase 1+ (Negative) H 07/31/23 20:18 Urine WBC (Auto) 5-10 /hpf (0-5) H 07/31/23 20:18 Urine RBC (Auto) 5-10 /hpf (0-4) H 07/31/23 20:18 U Hyaline Cast (Auto) 1-5 /lpf (0-5) 07/31/23 20:18 U Epithel Cells (Auto) 5-10 /lpf (0-5) H 07/31/23 20:18 Urine Bacteria (Auto) Negative (Negative) 07/31/23 20:18 Electrocardiogram Date: 07/31/23 Findings: + NSR @ and + LBBB Echocardiogram Date: 10/15/21 EF: 55-60 LV Function: normal Valvular Disease: + MR (mild) Pulmonary Function Test Date: 04/14/22 Severe obstruction without significant bronchodilator response
[2023-08-01] MEDS ORDERED: fentaNYL citrate PF 100 MCG/2 ML VIAL ONE ×3 (10:20→12:22)
[2023-08-01] MEDS ORDERED: PROPOFOL IV EMULSION 10 MG/ML 20 ML VIAL IV ONE ×3 (10:20→11:18)
[2023-08-01] MEDS ORDERED: MIDAZOLAM HCL 1 MG/ML 2ML VIAL ONE (10:20)
[2023-08-01] MEDS ORDERED: BUPIVACAINE 0.5 % 5 MG/1 ML MPF 30ML VIAL ONE (11:04)
--- NOTE | 2023-08-01 11:16 | Orthopedic Consultation ---
Date of Consultation August 01, 2023 Assessment & Plan (1) Intertrochanteric fracture of left hip: Patient will be scheduled for open reduction internal fixation left displaced angulated intertrochanteric hip fracture later today. All potential risks, benefits, alternatives and rehab were discussed the patient. Patient decided to proceed with procedure as indicated. Maintain NPO. Ancef 2 g IV on-call the OR. Begin PT/OT tomorrow. Begin VTE prophylaxis tomorrow at 9 AM. Social service for discharge planning. Thank you for the opportunity to consult in the care of of this patient. Kanu Gonzalez [facility] orthopedic [place] [phone] History of Present Illness Reason for Consultation: Left displaced intertrochanteric hip fracture Requesting Physician: Dr. You Purcell and hospitalist team. Attending Physician: Aimee Vasquez MD History of Present Illness This pleasant 82-year-old female was walking up steps to a local restaurant when she tripped and had a mechanical fall onto her left hip resulting in inability to ambulate. She was transported to [facility] ER where she was evaluated with x-rays and noted to have a displaced left intertrochanteric hip fracture. Patient was then admitted to the hospitalist service for medical optimization. Patient is now scheduled for open reduction internal fixation of her left intertrochanteric hip fracture to occur later today when operating room time becomes available. Allergies Allergy/AdvReac Type Severity Reaction Status Date / Time alendronate sodium Allergy Severe WEAKNESS Verified 07/31/23 20:08 HANDS hydroxyzine AdvReac Mild Verified 07/31/23 20:08 drowsiness/ fogginess Home Medications Medication Instructions Recorded Confirmed Type cyanocobalamin (vitamin B-12) 100 100 mcg PO QAM 12/09/18 07/31/23 History mcg tablet ascorbic acid (vitamin C) 1,000 mg 1 g PO DAILY 06/06/22 07/31/23 History capsule cholecalciferol (vitamin D3) 25 25 mcg PO DAILY 06/06/22 07/31/23 History mcg (1,000 unit) capsule lorazepam 0.5 mg tablet 0.5 mg PO DAILY PRN Anxiety 06/06/22 07/31/23 History atorvastatin 10 mg tablet 10 mg PO DAILY #90 tabs 11/20/22 07/31/23 Rx albuterol sulfate 90 mcg/actuation 1 puff inhalation Q4H PRN sob #18 03/24/23 07/31/23 Rx aerosol inhaler (ProAir HFA) grams fluticasone 500 mcg-salmeterol 50 1 inh inhalation Q12H #60 ea 03/29/23 07/31/23 Rx mcg/dose blistr powdr for inhalation (Advair Diskus) sertraline 100 mg tablet 100 mg PO DAILY #90 tabs 04/27/23 07/31/23 Rx oxybutynin chloride 5 mg 5 mg PO DAILY #90 tabs 07/18/23 07/31/23 Rx tablet,extended release 24 hr Patient History Medical History Hordeolum externum (stye) Hordeolum externum of right lower eyelid Postoperative seroma Balance problems Change in bowel habits Recurrent incisional hernia LBBB (left bundle branch block) CHRONIC DATING BACK TO AT LEAST 2009 Osteoarthritis Osteoporosis Overactive bladder Diverticular disease Depression Anxiety Hyperlipidemia Chronic obstructive pulmonary disease STABLE Surgical History 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 Scruggs 06/26/19 S/P hernia repair History of exploratory laparotomy Exploratory laparotomy, repair of recurrent ventral hernia with mesh, release of SBO= 12/19/17= Grade view 1, MAC 3, ETT 7.0 at [facility] Status post excision of lipoma LEFT ARM History of bilateral tubal ligation History of herniorrhaphy History of wisdom tooth extraction History of tonsillectomy History of colonoscopy History of colostomy reversal History of colostomy History of bowel resection 2/2 DIVERTICULITIS Family History Brother Family history of diabetes mellitus Family/Other Family history of diabetes mellitus Father Coronary heart disease Aunt Breast cancer Mother Dementia Grandfather (Maternal) Myocardial infarction Denies family history of Ovarian cancer Prostate cancer Colorectal cancer Social History Smoking Status: Heavy tobacco smoker Tobacco Type: Cigarettes Second Hand Exposure: No; Do You Dip or Chew Tobacco: No; Hx Alcohol Use: Yes Alcohol type: beer and wine Alcohol Intake Frequency: 4 or More x per/Week Hx Substance Use: No Preferred Language: Kiswahili Communication Ability: Effective Visual Impairment: No Limitations Hearing Ability: Normal Web Machine Tender Required: No Beliefs That Will Affect Care: None marital status: / Current Living Situation: Significant Other Current Living Situation Comment: Alex Julian current occupational status: retired Other Information That Helps Us Care for You: No Feels Safe at Home: Yes Safety Concerns: Feels Safe At This Time Childhood Exposure to Second-Hand Smoke: No Diet: regular Dental Care, Regularly: Yes Physical Activity Frequency: Daily Physical Activity Frequency Comment: walk, Seatbelt Use: always Sunscreen Use: No Assistive Devices: None Physical Exam Constitutional: WD/WN, vitals as above Eyes: PERRL, conjunctivae normal, anicteric sclerae ENMT: external ear and nose normal, oropharynx normal Neck: trachea midline, no thyromegaly Gastrointestinal (Abdomen): normal bowel sounds, soft, nontender, no hepatosplenomegaly Musculoskeletal: Left slightly shortened and externally rotated lower extremity. Positive tenderness at the left trochanteric region of the hip and groin. Irritability with active and passive range of motion of the left hip. Positive logroll and positive heel strike test left. Distal neurovascular status is intact. Capillary refill brisk. Pedal pulses palpable bilateral. Sensation intact bilateral. Calves are soft. Homans negative. Skin: no rashes, warm and dry Neurologic: PERRL, EOMI, accommodation nl, no face palsy, no dysarthria Psychiatric: A+Ox3, euthymic affect Lymphatic: no cervical or axillary lymphadenopathy Results & Data Vital Signs (Past 12 Hours) Vital Signs Temp Pulse Resp BP Pulse Ox O2 Del Method O2 Flow Rate 08/01/23 07:59 Nasal Cannula 2 08/01/23 07:25 36.9 C 78 18 113/63 93 Nasal Cannula 2 Diagnostic Findings Radiographs demonstrate angulated and displaced left intertrochanteric hip fracture. Osteopenia evident.
[2023-08-01] MEDS ORDERED: ONDANSETRON INJ 2 MG/ML 2 ML VIAL IV PRN (11:38)
[2023-08-01] MEDS ORDERED: ATROPINE SULFATE 0.1 MG/ML 10ML SYR IV PRN (11:38)
[2023-08-01] MEDS ORDERED: ePHEDrine sulfate 50 MG/ML AMP IV PRN (11:38)
[2023-08-01] MEDS ORDERED: HYDROmorphone INJ 2 MG/ML SYR/VIAL IV PRN (11:38)
[2023-08-01] MEDS ORDERED: LACTATED RINGER'S 1,000 ML IV SCH (11:45)
[2023-08-01] MEDS ORDERED: DEXAMETHASONE SOD INJ 4 MG/ML VIAL ONE (12:12)
[2023-08-01] MEDS ORDERED: ONDANSETRON INJ 2 MG/ML 2 ML VIAL ONE (12:12)
[2023-08-01] MEDS ORDERED: GLYCOPYRROLATE 0.2 MG/ML VIAL ONE (12:12)
[2023-08-01] MEDS ORDERED: ESMOLOL HCL INJ 10 MG/ML 10ML VIAL IV ONE (12:16)
--- NOTE | 2023-08-01 13:00 | Fluoroscopy Report ---
FL hip LT 2-3V CLINICAL HISTORY: LEFT TROCH acute fracture of the left hip COMPARISON STUDY: 07/31/2023 FLUOROSCOPY TIME: 46.3 seconds FLUOROSCOPY IMAGES: 4 EXPOSURE DOSE: 6.72 mGy FINDINGS: Status post placement of an intertrochanteric nail with medullary kyra fixating the acute in tertrochanteric left femoral fracture. There is improved alignment with mild persistent cortical offs et. Expected postoperative soft tissue swelling with deep tissue air. IMPRESSION: Fluoroscopic assistance as above. ACT 112: Negative or not required by law. Electronically signed by: Kd Arora M.D. 08/01/2023 12:58 PM
[2023-08-01] MEDS: fentaNYL citrate PF 100 MCG/2 ML VIAL IV PRN ×2 (13:21→13:28)
--- NOTE | 2023-08-01 13:24 | Operative Report ---
Post Operative Report Pre & Post Diagnosis Operation Date: 08/01/23 07:00 Preoperative diagnosis: Left displaced intertrochanteric hip fracture Postoperative diagnosis: Left displaced intertrochanteric hip fracture I identified the patient and participated in the time-out.: Yes Procedure Operation Date: 08/01/23 07:00 Procedure: Open reduction internal fixation of the left displaced intertrochanteric hip fracture with Synthes 170 mm x 11 mm trochanteric fixation nail, 90 mm fenestrated helical blade, 32 mm x 5.0 mm titanium locking screw. Surgeon Kanu Gonzalez DO Detention Officer None Estimated Blood Loss 15 Findings Consistent with Post-Op Diagnosis Specimens None Drains None Anesthesia Type General Complications none Disposition Accompanied Patient To Recovery: No Indications This is a pleasant 82-year-old female who tripped while going up some stairs on her way to dinner yesterday. She was unable to ambulate. She presented to [facility] via EMS at which point x-rays determined displaced angulated left intertrochanteric hip fracture. Patient was admitted to the hospitalist service for medical optimization. Patient was then scheduled for surgery as indicated for the left hip displaced fracture. Description of Procedure All potential risks, benefits, complications, alternatives, rehab potential for incomplete relief of symptoms, need for further surgery, DVT, PE, , persistent pain, swelling, scarring, weakness, neurovascular injury, wound complications, hardware failure, nonunion, malunion and bone fracture were discussed with the patient. The patient decided to proceed with the procedure as indicated. PROCEDURE DESCRIPTION: The patient was transferred to the operative suite. The proper site was identified. The consent was reviewed, the patient was then anesthetized. Once stable anesthesia achieved, the patient then transferred to the fracture table where the left lower extremity was placed in fracture table traction and the nonoperative leg was placed in the well leg esteban. All bony prominences were properly padded and protected. The padded post was placed in the perineum and the patient was positioned appropriately. Next the operative left leg was placed in traction and reduction of the fracture was performed under fluoroscopic control. Next the operative hip was then sterilely prepped and draped in the usual fashion. After surgical time-out was performed, a 10-blade scalpel was used to make an incision proximal to the greater trochanter in line with the femur. The incision was deepened through the subcutaneous tissues and fascia and the tip of the greater trochanter was then palpated followed by placement of a threaded guide pin under fluoroscopic control driven into the greater trochanter down to the level of the lesser trochanter. This was confirmed in AP and lateral projections followed by placement of the proximal reamer over the cannulated guide pin to the level of the lesser trochanter. Next, the reamer was then removed using the soft tissue protector, which was also removed. Next the trochanteric nail was then passed over the guide kyra into the femur, the guide kyra was removed and then under fluoroscopic control appropriate level of the femoral nail was then placed in AP projections. Next the targeting device was then fixed to the driving handle and 10-blade scalpel incision was made in the lateral aspect of the thigh. Next the tissue protector and cannulated guide system was then passed into the soft tissue until it was securely fixed against a lateral aspect of the femoral cortex. This was also confirmed under C-arm. Next the guide pin for the spiral blade was driven into the lateral aspect of the femur confirming this with AP lateral projections until the guide pin was in the center of the femoral neck and head approximately 5 mm from the subcortical bone of the femur. Next the spiral blade was then measured and then the lateral cortex was then drilled with the cortex reamer followed by use of the triple reamer with the depth stop set at appropriate depth. In this case a 11 mm x 90 mm spiral blade was then inserted over the cannulated guide kyra under fluoroscopic control. This was seated appropriately then traction was reduced from the limb and the fracture was then gently compressed and then locked proximally with the flexible screwdriver. Next the spiral blade was then disengaged from its insertion handle, insertion handle was then removed and the guide pin was removed from the femoral neck and head. Next distal interlocking hole was identified and the triple sleeve alignment guide Was placed through a small stab incision. The captured drill was used to drill Through the femur. The drill hole was measured and an interlocking screw was placed under live fluoroscopic assistance to stabilize the distal nail. The insertion arm was then removed from the nail and final x-rays were obtained in AP and lateral projections. All incisions were then copiously irrigated with sterile normal saline. The proximal gluteus fascia was then closed using interrupted #1 Vicryl, the dermis was closed using buried interrupted 2-0 Vicryl sutures in all three incisions and the skin was then closed using skin rock. A sterile compressive dressing consisting of Xeroform gauze, sterile 4 x 4's and Tegaderm was applied. The patient was then awakened and taken to recovery in stable condition. I attest to the content of the Intraoperative Record and any orders documented therein. Any exceptions are noted below. I attest to the content of the Intraoperative Record and any orders documented therein. Any exceptions are noted below.
--- NOTE | 2023-08-01 13:40 | Anesthesiology Progress Note ---
Date of Service August 01, 2023 Anesthesia Post Procedure Vital Signs Vital Signs: Temp Pulse Pulse Pulse Resp BP BP 08/01/23 13:30 94 H 12 08/01/23 13:20 102 H 12 08/01/23 13:13 36.2 C L 104 H 12 08/01/23 11:23 37 C 67 16 104/66 08/01/23 07:59 08/01/23 07:25 36.9 C 78 18 07/31/23 22:35 36.7 C 58 L 18 149/77 H 07/31/23 22:11 66 18 07/31/23 21:29 61 18 07/31/23 21:20 67 15 07/31/23 21:10 62 13 07/31/23 21:00 66 15 07/31/23 20:50 72 17 07/31/23 20:40 60 14 07/31/23 20:30 65 15 07/31/23 20:20 55 L 13 07/31/23 20:10 55 L 17 07/31/23 20:00 71 16 07/31/23 19:50 60 16 07/31/23 19:40 53 L 18 07/31/23 19:30 55 L 29 H 07/31/23 19:20 64 9 L 07/31/23 19:10 57 L 17 07/31/23 19:07 62 18 07/31/23 19:07 63 07/31/23 18:46 36.2 C L 59 L 16 178/76 H BP Pulse Ox O2 Del Method O2 Flow Rate 08/01/23 13:30 144/75 H 96 Nasal Cannula 2 08/01/23 13:20 152/81 H 95 Nasal Cannula 2 08/01/23 13:13 179/93 H 95 Room Air 08/01/23 11:23 93 Room Air 08/01/23 07:59 Nasal Cannula 2 08/01/23 07:25 113/63 93 Nasal Cannula 2 07/31/23 22:35 93 Room Air 07/31/23 22:11 142/70 H 93 Room Air 07/31/23 21:29 178/76 H 93 Room Air 07/31/23 21:20 07/31/23 21:10 94 07/31/23 21:00 94 07/31/23 20:50 91 07/31/23 20:40 97 07/31/23 20:30 97 07/31/23 20:20 96 07/31/23 20:10 98 07/31/23 20:00 95 07/31/23 19:50 97 07/31/23 19:40 95 07/31/23 19:30 07/31/23 19:20 97 07/31/23 19:10 99 07/31/23 19:07 98 07/31/23 19:07 07/31/23 18:46 97 Room Air Pain Intensity Left Hip: Pain Intensity: 5 Transfer of Care Handoff Completed per policy Notes Mental Status: alert / awake / arousable and participated in evaluation Patient Amnestic to Procedure: Yes Nausea / Vomiting: adequately controlled Pain: adequately controlled Airway Patency, RR, SpO2: stable & adequate BP & HR: stable & adequate Hydration State: stable & adequate Anesthetic Complications: no major complications apparent and Pt Satisfied with anesthetic care
--- NOTE | 2023-08-01 15:08 | XRay Report ---
XR hip LT 2V w pelvis HISTORY: 82 years-old Female Postoperative acute fracture of the left hip COMPARISON: 07/31/2023 TECHNIQUE: AP view of the pelvis with 2 views of the left hip FINDINGS: Acute intertrochanteric left femoral fracture redemonstrated. Status post placement of an intertrocha nteric nail with medullary kyra. There is improved alignment of the fracture. Mild osteoarthritis of t he hips. Expected postoperative soft tissue swelling with deep tissue air. IMPRESSION: Improved alignment of the acute left femoral fracture status post ORIF. ACT 112: Negative or not required by law. The above report was generated using voice recognition software. It may contain grammatical, syntax o r spelling errors. Electronically signed by: Kd Arora M.D. 08/01/2023 3:07 PM
--- NOTE | 2023-08-01 15:56 | Electrocardiogram Report ---
Test Reason : Blood Pressure : / mmHG Vent. Rate : 076 BPM Atrial Rate : 076 BPM P-R Int : 224 ms QRS Dur : 138 ms QT Int : 422 ms P-R-T Axes : 083 080 064 degrees QTc Int : 474 ms Sinus rhythm with sinus arrhythmia with 1st degree A-V block Left bundle branch block Abnormal ECG When compared with ECG of 11-DEC-2018 10:22, MN interval has increased T wave inversion less evident in Lateral leads Confirmed by Jabari Chamberlain ([id number]) on 08/01/2023 3:55:47 PM Referred By: REFERRED SELF Confirmed By:Jabari Chamberlain
--- NOTE | 2023-08-01 15:58 | Hospitalist Progress Note ---
Date of Service August 01, 2023 Assessment & Plan (1) Closed left hip fracture: Plan: Doing well post-op intertrochanteric nailing with Dr. Gonzalez 08/01, EBL 15mL Pain control, bowel regimen follow CBC, BMP in AM Hip precautions PT/OT dc IVFs (2) Left bundle branch block (LBBB) on electrocardiogram: Plan: chronic (3) Hyperlipidemia: Plan: continue statin-restarted today (4) Chronic obstructive pulmonary disease: Plan: no acute issues, no wheezing continue maintenance LABA/ICS and use albuterol prn wean off O2 (5) Anxiety: Plan: continue lorazepam and resume Zoloft (6) Depression: Plan: resume sertraline Plan DVT proph-ASA, SCDs Dispo-continued stay, will likely need rehab Admission and Anticipated Discharge Date Admission Date: July 31, 2023 Subjective Pt seen after ORIF, feeling better, less pain in hip. No CP. no SOB over her chronic dyspnea from COPD. Physical Exam Constitutional: WD/WN, vitals as above Respiratory: normal respiratory effort, lungs clear to auscultation Cardiovascular: RRR, no murmur, no edema Gastrointestinal (Abdomen): normal bowel sounds, soft, nontender, no hepatosplenomegaly Musculoskeletal: Extremities: + extremities abnormal to inspection (left hip dressing c/d/i) Skin: + wound (small abrasion left knee with e cchymosis) Psychiatric: A+Ox3, euthymic affect Results & Data Results & Data Vital Signs (Past 12 Hours) Vital Signs Temp Pulse Pulse Pulse Resp BP BP 08/01/23 15:40 36.9 C 76 16 114/64 08/01/23 14:40 84 18 124/70 08/01/23 14:10 36.5 C 82 18 119/67 08/01/23 13:50 87 14 148/75 H 08/01/23 13:40 36.5 C 95 H 17 124/65 08/01/23 13:30 94 H 12 144/75 H 08/01/23 13:20 102 H 12 152/81 H 08/01/23 13:13 36.2 C L 104 H 12 179/93 H 08/01/23 11:23 37 C 67 16 104/66 08/01/23 07:59 08/01/23 07:25 36.9 C 78 18 113/63 Pulse Ox O2 Del Method O2 Flow Rate 08/01/23 15:40 98 Room Air 1 08/01/23 14:40 96 Nasal Cannula 1 08/01/23 14:10 97 Nasal Cannula 1 08/01/23 13:50 97 Nasal Cannula 3 08/01/23 13:40 96 Nasal Cannula 3 08/01/23 13:30 96 Nasal Cannula 4 08/01/23 13:20 95 Nasal Cannula 4 08/01/23 13:13 95 Room Air 08/01/23 11:23 93 Room Air 08/01/23 07:59 Nasal Cannula 2 08/01/23 07:25 93 Nasal Cannula 2 Laboratory Results CBC< BMP reviewed PG Care Time/CCT Total # of Minutes Spent Total Time Spent with Patient: Total time spent is greater than 50% in coordination of care (as documented) at patient's floor/unit and/or counseling patient: Coding Level of Care Code 73437 SUB INP/OBS CARE 2/35MIN Diagnoses Closed left hip fracture S72.002A Encounter type: initial encounter Left bundle branch block (LBBB) on electrocardiogram I44.7 Hyperlipidemia E78.5 Chronic obstructive pulmonary disease J44.9 Anxiety F41.9 Depression F32.9 (1) Closed left hip fracture Encounter type: initial encounter Qualified Code(s): S72.002A - Fracture of unspecified part of neck of left femur, initial encounter for closed fracture
[2023-08-01] MEDS: oxyCODONE HCL IR 5 MG TAB (IMMEDIATE RELEASE) PO PRN ×2 (17:21→20:52)
[2023-08-01] MEDS: ceFAZolin 2000MG 2,000 MG/15 ML SYR IV SCH (20:02)
[2023-08-02] MEDS: oxyCODONE HCL IR 5 MG TAB (IMMEDIATE RELEASE) PO PRN ×5 (02:16→21:40)
[2023-08-02] MEDS: ceFAZolin 2000MG 2,000 MG/15 ML SYR IV SCH ×2 (05:31→11:59)
[2023-08-02 07:09] LABS: Basophils # (auto) 0.04 K/uL (0.00-0.20); Basophils % (auto) 0.4 %; Eosinophils # (auto) 0.04 K/uL (0.00-0.50); Eosinophils % (auto) 0.4 %; Hematocrit (blood only) 31.2 % (37.0-47.0); Hemoglobin 10.3 g/dl (12.0-16.0); Immature Granulocytes # (auto) 0.03 K/uL (0.01-0.20); Immature Granulocytes % (auto) 0.3 %; Lymphocytes % (auto) 21.7 %; Mean Corpuscular Hemoglobin 31.5 pg (25.0-34.0); Mean Corpuscular Volume 95.4 fL (80.0-100.0); Mean Platelet Volume 9.8 fL (9.4-12.4); Monocytes # (auto) 1.34 K/uL (0.11-0.59); Monocytes % (auto) 13.8 %; Neutrophils # (auto) 6.13 K/uL (1.40-6.50); Neutrophils % (auto) 63.4 %; Platelet Count 226 K/uL (130-400); RDW Coefficient of Variation 13.8 % (11.5-14.5); RDW Standard Deviation 48.5 fL (36.4-46.3); Red Blood Count 3.27 M/uL (4.20-5.40); White Blood Count 9.68 K/ul (4.8-10.8)
[2023-08-02 07:35] LABS: BUN Creatinine Ratio 15.1 (10-20); Creatinine Clr Calc Pharmacy 42.7 ml/min; Est GFR (African American) 88.9 ml/min; Est GFR (Non-African American) 76.7 ml/min; Potassium 3.7 mmol/L (3.5-5.1)
[2023-08-02] MEDS: ASPIRIN 81 MG ECTAB PO SCH (08:06)
[2023-08-02] MEDS: CYANOCOBALAMIN (B-12) 100 MCG TABLET PO SCH (08:07)
[2023-08-02] MEDS: SERTRALINE HCL 100 MG TABLET PO SCH (08:07)
[2023-08-02] MEDS: ATORVASTATIN 10 MG TAB PO SCH (08:07)
[2023-08-02] MEDS: CHOLECALCIFEROL 1,000 UNITS 25 MCG TAB PO SCH (08:07)
[2023-08-02] MEDS: FLUTICASONE/VILANTEROL 200/25MCG 14 PUFFS/INHALER INH SCH (08:07)
--- NOTE | 2023-08-02 10:15 | Hospitalist Progress Note ---
Date of Service August 02, 2023 Assessment & Plan (1) Closed left hip fracture: Plan: Age-related osteoporotic fracture of the left hip Doing well post-op intertrochanteric nailing with Dr. Gonzalez 08/01, EBL 15mL Pain control, bowel regimen With drop in hgb to 10 from 14 preop-acute blood loss anemia from hip fracture and some from hemodilution follow CBC, BMP in AM Hip precautions PT/OT (2) Left bundle branch block (LBBB) on electrocardiogram: Plan: chronic (3) Hyperlipidemia: Plan: continue statin (4) Chronic obstructive pulmonary disease: Plan: no acute issues, no wheezing continue maintenance LABA/ICS and use albuterol prn weaned off O2 (5) Anxiety: Plan: continue lorazepam and Zoloft (6) Depression: Plan: continue sertraline Plan DVT proph-ASA, SCDs Dispo-continued stay, will likely need rehab-medically stable for discharge tomorrow Admission and Anticipated Discharge Date Admission Date: July 31, 2023 Anticipated date of discharge: 08/03/23 Subjective Pt did not sleep well last night from some pain and also from drinking caffeine before bed. Is eating and drinking, was OOB to chair x 2 today with PT. Physical Exam Constitutional: WD/WN, vitals as above Respiratory: normal respiratory effort, lungs clear to auscultation Cardiovascular: RRR, no murmur, no edema Gastrointestinal (Abdomen): normal bowel sounds, soft, nontender, no hepatosplenomegaly Musculoskeletal: Extremities: + extremities abnormal to inspection (left hip dressing c/d/i) Skin: + wound (small abrasion left knee with e cchymosis) Psychiatric: A+Ox3, euthymic affect Results & Data Results & Data Vital Signs (Past 12 Hours) Vital Signs Temp Pulse Resp BP Pulse Ox O2 Del Method 08/02/23 08:00 Room Air 08/02/23 07:56 36.8 C 73 18 98/60 L 90 Room Air 08/02/23 02:34 37.0 C 67 18 109/67 96 Room Air 08/01/23 22:41 36.7 C 76 18 112/67 96 Room Air Laboratory Results CBC, BMP reviewed PG Care Time/CCT Total # of Minutes Spent Total Time Spent with Patient: Total time spent is greater than 50% in coordination of care (as documented) at patient's floor/unit and/or counseling patient: Coding Level of Care Code 89418 SUB INP/OBS CARE Diagnoses Closed left hip fracture S72.002A Encounter type: initial encounter Left bundle branch block (LBBB) on electrocardiogram I44.7 Hyperlipidemia E78.5 Chronic obstructive pulmonary disease J44.9 Anxiety F41.9 Depression F32.9 (1) Closed left hip fracture Encounter type: initial encounter Qualified Code(s): S72.002A - Fracture of unspecified part of neck of left femur, initial encounter for closed fracture
--- NOTE | 2023-08-02 20:45 | Orthopedic Progress Note ---
Date of Service August 02, 2023 Assessment & Plan (1) Intertrochanteric fracture of left hip: Plan: Postop day #1 status post open reduction internal fixation left displaced angulated intertrochanteric hip fracture. Continue PT/OT. Continue VTE prophylaxis with aspirin 81 mg 1 p.o. twice daily x4 weeks. Social service for discharge planning. Thank you for the opportunity to consult in the care of of this patient. Kanu Gonzalez [facility] [phone] Admission and Anticipated Discharge Date Admission Date: July 31, 2023 Subjective Patient seen and examined while on rounds. Patient resting comfortably in bed. She hip pain is well controlled. OOB to chair x 2 today with PT/OT. Physical Exam Constitutional: WD/WN, vitals as above Eyes: PERRL, conjunctivae normal, anicteric sclerae ENMT: external ear and nose normal, oropharynx normal Neck: trachea midline, no thyromegaly Gastrointestinal (Abdomen): normal bowel sounds, soft, nontender, no hepatosplenomegaly Musculoskeletal: Left hip dressing clean, dry and intact. Minor drainage from the proximal incision. Compartments are soft. Homans negative. No pain with gentle internal/external rotation of the left hip. No groin tenderness. Distal neurovascular status is intact. Pedal pulses palpable. Feet are warm. Leg lengths are equal. Skin: no rashes, warm and dry Neurologic: PERRL, EOMI, accommodation nl, no face palsy, no dysarthria Psychiatric: A+Ox3, euthymic affect Lymphatic: no cervical or axillary lymphadenopathy Results & Data Vital Signs (Past 12 Hours) Vital Signs Temp Pulse Resp BP Pulse Ox O2 Del Method 08/02/23 15:42 95 Room Air 08/02/23 15:00 36.7 C 77 18 122/70 95 Room Air Diagnostic Findings Stable trochanteric nail left hip fracture. Stable alignment.
[2023-08-03] MEDS: oxyCODONE HCL IR 5 MG TAB (IMMEDIATE RELEASE) PO PRN ×3 (06:09→18:26)
[2023-08-03 06:14] LABS: Basophils # (auto) 0.05 K/uL (0.00-0.20); Basophils % (auto) 0.5 %; Eosinophils # (auto) 0.18 K/uL (0.00-0.50); Eosinophils % (auto) 1.7 %; Hematocrit (blood only) 33.5 % (37.0-47.0); Immature Granulocytes # (auto) 0.03 K/uL (0.01-0.20); Immature Granulocytes % (auto) 0.3 %; Lymphocytes # (auto) 1.72 K/uL (1.20-3.40); Lymphocytes % (auto) 16.2 %; Mean Corpuscular Hemoglobin 31.7 pg (25.0-34.0); Mean Corpuscular Hgb Conc 32.8 g/dL (32.0-36.0); Mean Corpuscular Volume 96.5 fL (80.0-100.0); Mean Platelet Volume 9.8 fL (9.4-12.4); Monocytes # (auto) 1.56 K/uL (0.11-0.59); Monocytes % (auto) 14.7 %; Neutrophils % (auto) 66.6 %; Platelet Count 198 K/uL (130-400); RDW Coefficient of Variation 13.7 % (11.5-14.5); Red Blood Count 3.47 M/uL (4.20-5.40); White Blood Count 10.64 K/ul (4.8-10.8)
[2023-08-03 06:17] LABS: Calcium 8.2 mg/dl (8.6-10.3); Creatinine Clr Calc Pharmacy 59.9 ml/min; Est GFR (African American) 103.1 ml/min; Potassium 3.5 mmol/L (3.5-5.1)
[2023-08-03] MEDS: ASPIRIN 81 MG ECTAB PO SCH ×2 (08:10→20:13)
[2023-08-03] MEDS: FLUTICASONE/VILANTEROL 200/25MCG 14 PUFFS/INHALER INH SCH (08:10)
[2023-08-03] MEDS: CYANOCOBALAMIN (B-12) 100 MCG TABLET PO SCH (08:11)
[2023-08-03] MEDS: CHOLECALCIFEROL 1,000 UNITS 25 MCG TAB PO SCH (08:11)
[2023-08-03] MEDS: ATORVASTATIN 10 MG TAB PO SCH (08:11)
[2023-08-03] MEDS: SERTRALINE HCL 100 MG TABLET PO SCH (08:12)
[2023-08-03] MEDS: POLYETHYLENE (MIRALAX) 17 GM PACK PO SCH (11:10)
--- NOTE | 2023-08-03 13:20 | Orthopedic Progress Note ---
Date of Service August 03, 2023 Assessment & Plan (1) Intertrochanteric fracture of left hip: Plan: Postop day #2 status post open reduction internal fixation left displaced angulated intertrochanteric hip fracture. Continue PT/OT. Continue VTE prophylaxis with aspirin 81 mg 1 p.o. twice daily x4 weeks. Social service for discharge planning. Thank you for the opportunity to consult in the care of of this patient. Kanu Gonzalez [facility] [phone] Admission and Anticipated Discharge Date Admission Date: July 31, 2023 Subjective Patient seen and examined while on rounds. Her hip pain is well controlled. Patient resting comfortably in bed. Physical Exam Constitutional: WD/WN, vitals as above Eyes: PERRL, conjunctivae normal, anicteric sclerae ENMT: external ear and nose normal, oropharynx normal Neck: trachea midline, no thyromegaly Gastrointestinal (Abdomen): normal bowel sounds, soft, nontender, no hepatosplenomegaly Musculoskeletal: Left hip dressing is clean, Dry and intact. Compartments are soft. Homans negative. Distal neurovascular status intact. Cap refills less than 2 seconds. Pedal pulses palpable. No pain or irritability with passive range of motion of the left hip. Skin: no rashes, warm and dry Neurologic: PERRL, EOMI, accommodation nl, no face palsy, no dysarthria Psychiatric: A+Ox3, euthymic affect Lymphatic: no cervical or axillary lymphadenopathy Results & Data Vital Signs (Past 12 Hours) Vital Signs Temp Pulse Resp BP Pulse Ox O2 Del Method 08/03/23 08:09 92 Room Air 08/03/23 07:40 Room Air 08/03/23 07:27 36.7 C 70 17 115/65 90 Room Air
--- NOTE | 2023-08-03 15:48 | Hospitalist Progress Note ---
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 Gonzalez 08/01, EBL 15mL Pain control, bowel regimen Hgb increeased to 11 --> was 14 prior to surgery follow CBC, BMP in AM Hip precautions PT/OT (2) Left bundle branch block (LBBB) on electrocardiogram: Plan: chronic (3) Hyperlipidemia: Plan: continue statin (4) Chronic obstructive pulmonary disease: Plan: no acute issues, no wheezing continue maintenance LABA/ICS and use albuterol prn weaned off O2 (5) Anxiety: Plan: continue lorazepam and Zoloft (6) Depression: Plan: continue sertraline Plan DVT proph-ASA, SCDs Dispo- medically stable for discharge, awaiting placement Admission and Anticipated Discharge Date Admission Date: July 31, 2023 Supervising Physician Co-Signing Physician Notes PA Supervision Note: I personally saw and examined the patient. I verified all orr points and agree with ELODIA Mclean with the following exceptions and/or additions: S-Pt feeling well today, pain controlled, no other complaints O- Vitals reviewed Gen: [AAOx3, NAD] HEENT: [anicteric sclerae, EOMI] A/P-82 yo female here with fall and left hip fracture now s/p repair DOing well post op, awaiting placement Increased ASA to 81mg po bid as per Ortho reocmmendation Subjective 0945 - patient up to chair. Reports pain well controlled. Has been walking to the bathroom multiple times this morning. Slept better last night, good appetite. Denies chest pain or shortness of breath, nausea or diarrhea Review of Systems Review of Systems: All systems reviewed & are unremarkable except as noted in Subjective Physical Exam Constitutional: WD/WN, vitals as above Respiratory: normal respiratory effort, lungs clear to auscultation Cardiovascular: RRR, no murmur, no edema Gastrointestinal (Abdomen): normal bowel sounds, soft, nontender, no hepatosplenomegaly Musculoskeletal: Extremities: + extremities abnormal to inspection (left hip dressing c/d/i) negative Mayur sign b/l Psychiatric: A+Ox3, euthymic affect Results & Data Results & Data Vital Signs (Past 12 Hours) Vital Signs Temp Pulse Resp BP Pulse Ox O2 Del Method 11/10/23 14:54 37.0 C 79 17 111/65 92 Room Air 08/03/23 08:09 92 Room Air 08/03/23 07:40 Room Air 08/03/23 07:27 36.7 C 70 17 115/65 90 Room Air Laboratory Results CBC, CMP reviewed (1) Closed left hip fracture Encounter type: initial encounter Qualified Code(s): S72.002A - Fracture of unspecified part of neck of left femur, initial encounter for closed fracture
[2023-08-04] MEDS: oxyCODONE HCL IR 5 MG TAB (IMMEDIATE RELEASE) PO PRN ×3 (05:21→17:49)
[2023-08-04 06:40] LABS: Hematocrit (blood only) 28.2 % (37.0-47.0); Hemoglobin 9.5 g/dl (12.0-16.0); Mean Corpuscular Hgb Conc 33.7 g/dL (32.0-36.0); Mean Corpuscular Volume 94.9 fL (80.0-100.0); Mean Platelet Volume 10.1 fL (9.4-12.4); Platelet Count 188 K/uL (130-400); RDW Coefficient of Variation 13.4 % (11.5-14.5); RDW Standard Deviation 47.1 fL (36.4-46.3); Red Blood Count 2.97 M/uL (4.20-5.40); White Blood Count 8.46 K/ul (4.8-10.8)
[2023-08-04 07:04] LABS: Calcium 8.1 mg/dl (8.6-10.3); Creatinine Clr Calc Pharmacy 64.9 ml/min; Est GFR (African American) 105.9 ml/min; Est GFR (Non-African American) 91.4 ml/min; Potassium 3.8 mmol/L (3.5-5.1)
[2023-08-04] MEDS: POLYETHYLENE (MIRALAX) 17 GM PACK PO SCH (08:05)
[2023-08-04] MEDS: FLUTICASONE/VILANTEROL 200/25MCG 14 PUFFS/INHALER INH SCH (08:05)
[2023-08-04] MEDS: CYANOCOBALAMIN (B-12) 100 MCG TABLET PO SCH (08:05)
[2023-08-04] MEDS: ASPIRIN 81 MG ECTAB PO SCH ×2 (08:05→20:11)
[2023-08-04] MEDS: ATORVASTATIN 10 MG TAB PO SCH (08:05)
[2023-08-04] MEDS: SERTRALINE HCL 100 MG TABLET PO SCH (08:05)
[2023-08-04] MEDS: CHOLECALCIFEROL 1,000 UNITS 25 MCG TAB PO SCH (08:05)
--- NOTE | 2023-08-04 09:56 | Orthopedic Progress Note ---
Date of Service August 04, 2023 Assessment & Plan (1) Intertrochanteric fracture of left hip: Plan: Postop day #3 status post open reduction internal fixation left displaced angulated intertrochanteric hip fracture. Continue PT/OT. Continue VTE prophylaxis with aspirin 81 mg 1 p.o. twice daily x4 weeks. Social service for discharge planning. Follow-up 2 to 3 weeks for reassessment. [place] may be removed in extended-care facility or by home nursing staff at 2 weeks postop. Ortho to sign off now. Thank you for the opportunity to consult in the care of of this patient. Kanu Gonzalez [facility] [place] [phone] Admission and Anticipated Discharge Date Admission Date: July 31, 2023 Subjective Patient seen on rounds. Up on bedside commode. Denies hip pain. Denies chest pain or shortness of breath, nausea or diarrhea. Awaiting placement. Physical Exam Constitutional: WD/WN, vitals as above Eyes: PERRL, conjunctivae normal, anicteric sclerae ENMT: external ear and nose normal, oropharynx normal Neck: trachea midline, no thyromegaly Gastrointestinal (Abdomen): normal bowel sounds, soft, nontender, no hepatosplenomegaly Musculoskeletal: Left hip incision clean, dry and intact with rock. Compartments soft. Homans negative. Hip is nonirritable with passive range of motion. Distal neurovascular status is intact. Pedal pulse palpable. Skin: no rashes, warm and dry Neurologic: PERRL, EOMI, accommodation nl, no face palsy, no dysarthria Psychiatric: A+Ox3, euthymic affect Lymphatic: no cervical or axillary lymphadenopathy Results & Data Vital Signs (Past 12 Hours) Vital Signs Temp Pulse Resp BP Pulse Ox O2 Del Method 08/04/23 07:35 36.8 C 67 16 115/65 91 Room Air 08/03/23 22:50 95 Room Air
--- NOTE | 2023-08-04 15:09 | Hospitalist Progress Note ---
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 Gonzalez 08/01, EBL 15mL Pain control, bowel regimen Hgb decreased to 9.5 --> was 14 prior to surgery follow CBC, in AM. Will add ferritin. Hip precautions PT/OT (2) Left bundle branch block (LBBB) on electrocardiogram: Plan: chronic (3) Hyperlipidemia: Plan: continue statin (4) Chronic obstructive pulmonary disease: Plan: no acute issues, no wheezing continue maintenance LABA/ICS and use albuterol prn weaned off O2 - had documented 2L overnight, but back on RA (5) Anxiety: Plan: continue lorazepam and Zoloft (6) Depression: Plan: continue sertraline (7) Acute blood loss anemia: Plan DVT proph-ASA, SCDs Dispo- medically stable for discharge, awaiting placement Insurance requesting peer to peer, Attempted by Dr. Hopper 08/04 Admission and Anticipated Discharge Date Admission Date: July 31, 2023 Supervising Physician Co-Signing Physician Notes Attending Attestation & Progress Note: Chart reviewed, care plan d/w PA Nafisa Mclean. I agree w/ the orr components of her documentation. We were notified by [employer] that they were requesting [id number]. I called [facility] and spoke with Dr Austin, one of the medical directors. Dr Austin reported that Ms Hoover did not meet "medical complexity" to warrant acute inpatient rehab at [facility] (ie - does not need multiple physician/VLAD visits each week while rehabbing). Therefore - denial for inpatient rehab upheld. Patient made aware by Ms Mclean. Labs/vitals remain acceptable. Consider dulcolax suppos if no BM by tomorrow. Consider IV venofer while here due to 4+ gram drop in Hb from acute blood loss anemia. Total time spent doing [id number] --> 25 minutes. Siva Hopper MD Subjective 1135-patient seen sitting up to chair. States pain has been well controlled, just got a fresh ice pack. No new concerns. Is hesitant about walking around the room as she does not want to "overdo it ". Is hoping to work with therapy today. Denies any chest pain or shortness of breath, has not had a bowel movement but is drinking MiraLAX. Reports good appetite Review of Systems Review of Systems: All systems reviewed & are unremarkable except as noted in Subjective Physical Exam Constitutional: WD/WN, vitals as above Respiratory: normal respiratory effort, lungs clear to auscultation Cardiovascular: RRR, no murmur, no edema Gastrointestinal (Abdomen): normal bowel sounds, soft, nontender, no hepatosplenomegaly Musculoskeletal: Extremities: + extremities abnormal to inspection (left hip dressing c/d/i) negative Mayur sign b/l Psychiatric: A+Ox3, euthymic affect Results & Data Results & Data Vital Signs (Past 12 Hours) Vital Signs Temp Pulse Resp BP Pulse Ox O2 Del Method 08/04/23 14:42 36.6 C 78 16 148/84 H 92 Room Air 08/04/23 08:00 Room Air 08/04/23 07:35 36.8 C 67 16 115/65 91 Room Air Laboratory Results Laboratory Results - last 24 hr 08/04/23 05:43 WBC 8.46 RBC 2.97 L Hgb 9.5 L Hct 28.2 L MCV 94.9 MCH 32.0 MCHC 33.7 RDW Std Deviation 47.1 H RDW Coeff of Junaid 13.4 Plt Count 188 MPV 10.1 Sodium 138 Potassium 3.8 Chloride 105 Carbon Dioxide 30 Anion Gap 3 BUN 12 Creatinine 0.48 L Est Cr Clr Drug Dosing 64.9 Est GFR ( Amer) 105.9 Est GFR (Non-Af Amer) 91.4 BUN/Creatinine Ratio 25.0 H Glucose 98 Calcium 8.1 L (1) Closed left hip fracture Encounter type: initial encounter Qualified Code(s): S72.002A - Fracture of unspecified part of neck of left femur, initial encounter for closed fracture
[2023-08-04] MEDS: ACETAMINOPHEN 325 MG TAB PO PRN (17:50)
[2023-08-05] MEDS: oxyCODONE HCL IR 5 MG TAB (IMMEDIATE RELEASE) PO PRN ×3 (02:47→19:53)
[2023-08-05 06:11] LABS: Basophils # (auto) 0.05 K/uL (0.00-0.20); Basophils % (auto) 0.7 %; Eosinophils # (auto) 0.23 K/uL (0.00-0.50); Eosinophils % (auto) 3.1 %; Hematocrit (blood only) 28.9 % (37.0-47.0); Hemoglobin 9.4 g/dl (12.0-16.0); Immature Granulocytes # (auto) 0.03 K/uL (0.01-0.20); Immature Granulocytes % (auto) 0.4 %; Lymphocytes # (auto) 1.97 K/uL (1.20-3.40); Lymphocytes % (auto) 26.7 %; Mean Corpuscular Hemoglobin 31.4 pg (25.0-34.0); Mean Corpuscular Hgb Conc 32.5 g/dL (32.0-36.0); Mean Corpuscular Volume 96.7 fL (80.0-100.0); Mean Platelet Volume 9.9 fL (9.4-12.4); Monocytes # (auto) 0.89 K/uL (0.11-0.59); Monocytes % (auto) 12.1 %; Neutrophils # (auto) 4.21 K/uL (1.40-6.50); Platelet Count 209 K/uL (130-400); RDW Coefficient of Variation 13.4 % (11.5-14.5); RDW Standard Deviation 48.1 fL (36.4-46.3); Red Blood Count 2.99 M/uL (4.20-5.40); White Blood Count 7.38 K/ul (4.8-10.8)
--- OUTSIDE RECORDS SUMMARY | 2023-08-05 08:00 | External Medical Summary | Summary of Care ---
Author Name Unknown Organization [facility] Address [address] [place] [address] Phone [phone] Care Team Providers Care Sheet Rock Installation Helper Name Role Phone [facility] Provider Reason for Visit * Auth/Cert Specialty Diagnoses / Procedures Referred By Contjennie t Referred To Contact Diagnoses Combined forms of age-related cataract of left eye Combined forms of age-related cataract of left eye [H25.812] Procedures REMOVE CATARACT, INSERT LENS PROSTH LEFT EXTRACAPSULAR CATARACT REMOVAL WITH INTRAOCULAR LENS Referral ID Status Reason Start Date Expiration Date Visits Re quested Visits Authorized [id number] Encounter Details Date Type Department Care Team Description 04/03/2023 Hospital Encounter OR [facility], Operating Room [facility] [id number] Braulio Friend MD [facility] Dorene Wong [address] [address] Allergies No known active allergiesdocumented as of this encounter (statuses as of 04/04/2023) Medications Medication Sig Dispensed Refills Start Date End Date Status ZOLOFT 100 MG PO TABS 1 TABLET DAILY 0 06/27/2005 Active BONIVA 2.5 MG PO TABS 1 tab once a month 0 Active COMBIVENT 103-18 MCG/ACT IN AERO 2 puffs twice a day 0 Active ADVAIR DISKUS 100-50 MCG/DOSE IN MISC 1 pufff twice a day 0 Active VITAMIN D 400 UNIT PO CAPS 1 tab once a day 0 Active MULTIVITAMINS PO CAPS 1 tab once a day 0 Active CALCIUM 600 MG PO TABS 1 tab once a day 0 Active FISH OIL 300 MG PO CAPS 1 tablet daily 0 Active Albuterol Sulfate 108 (90 Base) MCG/ACT Inhalation Aerosol Powder Breath Activated Inhale by mouth as needed. 0 Active Atorvastatin Calcium 10 MG Oral Tablet (Lipitor) Take 1 Tablet by mouth in the morning. 0 Active Vitamin B-12 100 MCG Oral Tablet (vitamin B-12) Take 1 Tablet by mouth in the morning. 0 Active Vitamin C 500 MG Oral Tablet (Ascorbic Acid) Take 1 Tablet by mouth in the morning. 0 Active Oxybutynin Chloride ER 5 MG Oral Tablet Extended Release 24 Hour (Ditropan XL) Take 1 Tablet by mouth in the morning. 0 Active documented as of this encounter (statuses as of 04/04/2023) Active Problems Problem Noted Date Blepharochalasis 04/30/2007 ADVANCE DIRECTIVE INFORMATION 06/27/2005 Overview: Yes, Patient instructed to provide copy of advance directive for provider to review and to be scanned into Electronic Medical Record SKIN HYPERTRO-ATROPH NOS 06/27/2005 documented as of this encounter (statuses as of 04/04/2023) Social History Tobacco Use Types Packs/Day Years Used Date Smoking Tobacco: Former Cigarettes 1 30 Smokeless Tobacco: Never Comments:quit 6 years ago Alcohol Use Standard Drinks/Week Comments Yes 0 (1 standard drink = 0.6 oz pur e alcohol) socially Sex Assigned at Date Recorded Not on file documented as of this encounter Last Filed Vital Signs Vital Sign Reading Time Taken Comments Blood Pressure 148/78 04/03/2023 1:32 PM EDT Pulse 67 04/03/2023 1:32 PM EDT Temperature 36.7 C (98 F) 04/03/2023 1:32 PM EDT Respiratory Rate 18 04/03/2023 1:32 PM EDT Oxygen Saturation 96% 04/03/2023 1:32 PM EDT Inhaled Oxygen Concentration - - Weight 52.2 kg (115 lb) 04/03/2023 11:49 AM EDT Height 152.4 cm (5') 04/03/2023 11:49 AM EDT Body Mass Index 22.46 04/03/2023 11:49 AM EDT documented in this encounter Discharge Instructions * Discharge Instr - AVS* Braulio Friend MD - 03/13/2023 3:37 PM EDT Discharge Date: 04/03/23 You may call Doctor Ronna at during business hours and for after-hours emergencies. Your attending physician at the time of your discharge was: Braulio Friend MD The information below provides you with the instructions and the list of medications you need to betaking following discharge from the hospital. If you have any questions, please ask before leaving.Please carry this letter with you when you see your doctor in the clinic. Diet: Normal diet Activity: No lifting or pushing or pulling more than 10 lbs for 1 week. Driving: Do not drive for 24 hours after surgery . Date you may return to work or school: N/A Follow Up - Return appointment(s): 04/04/23 @12:[address] Lehman See your center medical director in 1day(s). SPECIAL INSTRUCTIONS EYEDROPS for healing and infection prevention. 8 am (Breakfast) 12 noon (Lunch) 6 pm (Supper) 10 pm (Bedtime) Duration PGB X X X X 1 Day PGB X 4 Weeks 1. Use your eye drops 4 times on the afternoon and evening after your surgery. 2. DO NOT RUB OR PUT PRESSURE ON THE EYE for 4 weeks after surgery. 3. Please keep your surgical eye closed on the ride home and then at home for a total of 1-2 hours after surgery. 4. You may sit, walk, watch TV, read, and perform routine activities. 5. NO exercise for 2 weeks after surgery. It is OK to walk. 6. DO NOT go underwater for 2 weeks after surgery, e.g. no swimming or hot-tubs. 7. It is OK to shower, wash your face, shave, shampoo your hair the day AFTER Surgery (a few drops of water are OK). 8. Continue warm compresses for 5 minutes, 2 times per day. 9. Sleep with the shield taped over your eyes for 2 weeks after surgery. 10. NO eye make-up for 2 weeks after surgery. 11. DO NOT make any eye drop changes to your other eye. 12. Dr. Friend suggests that all patients remain in the area for a minimum of the one week following surgery if traveling within the [place]. Patients traveling internationally should wait 4 weeks. 13. You may return to work soon after surgery; please discuss this with Dr. Friend. 14. You can expect the following after surgery during the first 4-6 weeks. Itchiness/scratchiness around the eye. Redness in the white of the eye. Double vision/ Fluctuation in vision. Droopiness of the eyelid. 15. Your vision should gradually improve in days and weeks after surgery. If your vision is gettingworse (not better), or your eye more red, or you are having increasing pain, or you are having new floaters or flashing lights, CALL US IMMEDIATELY. IF YOU HAVE ANY PROBLEMS, QUESTIONS OR CONCERNS, DO NOT HESITATE TO CALL US AT [phone] AT ANY TIME I, Braulio Friend MD personally performed the services described in this documentation. All medical record entries made by the scribe were at my direction and in my presence. I have reviewed the chart and agree that the record reflects my personal performance and is accurate and complete. Braulio rodriguez MD. 04/03/2023. 1:19 PM. documented in this encounter H&P Notes * Braulio Friend MD - 04/03/2023 7:42 AM EDT HISTORY & PHYSICAL INTERVAL NOTE [facility] [place] [address] [facility] [id number] History and Physical Update: Name: Shira Mustafa Location: Room/bed info not found Date: 04/03/2023 Time: 7:42 AM DATE OF HISTORY AND PHYSICAL: 03/23/23 BP: 162 mmHg/63 mmHg (04/03/231148) Pulse: 66 (04/03/231148) Temp: 36.44 C (04/03/231148) Resp: 20 (07/11/23 1149) SpO2: 97 % (04/03/23 1149) Does patient take a beta christi? No Did patient stop anticoagulants? No Heart Exam: regular rate and rhythm Lung Exam: clear to auscultation bilaterally Other Pertinent Physical Exam: none This patient has undergone a preprocedural evaluation. A determination has been made to proceed with the planned procedure under [facility] procedural guidelines and the [facility] Non-Emergent, Elective Medical Services and Treatment Recommendations (published on 12-30-19). The community and hospital prevalence of COVID-19 has been discussed as well as this patient's specific risks associated with SARS-CoV-19 infection. Based upon the clinical acuity and patient-specific care considerations, this procedure is deemed a Tier II - Intermediate acuity treatment or service with either progression or the threat of progressive disease related to the delay in treatment. Not providing the service has the potential for increasing morbidity or mortality. I have reviewed the H&P previously performed and examined the patient today. There are no new findings noted. documented in this encounter Nursing Notes * Carina Jose RN - 04/03/2023 1:32 PM EDT Pt given d'c instructions and verbalized understanding. * Carina Jose RN - 04/03/2023 1:19 PM EDT Patient transferred to pacu 2 status post left cataract removal and lens placement. No drainage noted. Patient awake. Denies pain and nausea. Respirations are even and unlabored on room air. Abdomen soft and non distended. Vital signs stable. * Maricel Gillespie RN - 04/03/2023 11:43 AM EDT Surgical consent verified with patient. Patient agrees with listed procedure and verified signature. documented in this encounter Plan of Treatment Upcoming Encounters Date Type Specialty Care Team Description 04/17/2023 Hospital Encounter Surgery Braulio Friend MD [address] [address] 04/17/2023 Surgery Surgery Braulio Friend MD [address] Wong [address] [address] RIGHT EXTRACAPSULAR CATARACT REMOVAL WITH INTRAOCULAR LENS Scheduled Procedures Name Priority Associated Diagnoses Date/Ti me EXTRACAPSULAR CATARACT REMOVAL WITH INTRAOCULAR LENS Combined forms of age-related cataract of right eye 04/17/2023 3:35 PM EDT Health Maintenance Due Date Last Done Comments DXA Scan 1940 Depression Screening, Annual for Pts 12 and Over 1952 DTaP,Tdap,and Td Vaccines (1 - Tdap) 1959 Pneumococcal Vaccine: 65+ Years (1 - PCV) 2005 *ADVANCE DIRECTIVE NOT ON FILE 10/11/2014 Zoster Vaccines (2 of 2) 02/13/2022 022, 07/05/2021, 01/19/2016 Influenza Vaccine (FLU shot) (#1) 2023 06/13/2022, 07/10/2019 COVID-19 Vaccine Completed 07/06/2022, 01/11/2022 GARDASIL-HPV IMMUNIZATION SERIES Aged Out No longer eligible b ased on patient's age to complete this topic Hepatitis B Aged Out No longer eligi ble based on patient's age to complete this topic MENINGOCOCCAL (MENACTRA/MENVEO) Aged Out No longer eligible b ased on patient's age to complete this topic documented as of this encounter Medical Devices Implanted Type Area Zumba Instructor Device Identifier Shelf Expiration Date Model / Serial / Lot Lens [id number] 13.00mm 20.00 - [id number] - [id number] Implanted:Qty: 1 on 04/03/2023 by Braulio Friend MD at OR [facility] Left: Eye [employer] 10/24/2027 [id number] / [id number] / [id number] documented as of this encounter Administered Medications Inactive Administered Medications - up to 3 most recent administrations Medication Order MAR Action Action Date Dose Rate Site Acetaminophen (Tylenol) tab 650 mg 650 mg, Oral, PRN Pain, Mild, Starting on Sun04/03/23 at 1328, Until Sun04/03/23 at 1741, For 1 dose, Maximum of 4 grams (4000 mg) per day., Post-op Diclofenac Sodium (Voltaren) 0.1 % ophthalmic solution 1 Drop 1 Drop, Left eye, Q5 MINUTES, First dose on Sun04/03/23 at 1215, Last dose on Sun04/03/23 at 1225, For 3 doses, PRE-OP: One drop to left eye every 5 minutes for 3 doses, Pre-Op Given 04/03/2023 12:05 PM EDT 1 Drop Given 04/03/2023 11:59 AM EDT 1 Drop Given 04/03/2023 11:53 AM EDT 1 Drop isolyte-S pH 7.4 infusion Intravenous, at 100 mL/hr, Plasma-LYTE 148, isolyte-S, and isolyte-S pH 7.4 are considered equivalent - including for MAR barcode scanning., CONTINUOUS, Starting on Sun04/03/23 at 1215, Until Sun04/03/23 at 1741, Pre-Op Continue from Pre-Op 04/03/2023 12:54 PM EDT 100 mL/hr New Bag 04/03/2023 12:01 PM EDT 100 mL/hr moxifloxacin (Vigamox) 0.5 % ophthalmic solution 1 Drop 1 Drop, Left eye, Q5 MINUTES, First dose on Sun04/03/23 at 1215, Last dose on Sun04/03/23 at 1225, For 3 doses, PRE-OP: One drop to left eye every 5 minutes for 3 doses, Pre-Op Given 04/03/2023 12:05 PM EDT 1 Drop Given 04/03/2023 12:00 PM EDT 1 Drop Given 04/03/2023 11:53 AM EDT 1 Drop proparacaine (Alcaine) 0.5 % ophthalmic solution 1 Drop 1 Drop, Left eye, ONCE, On Sun04/03/23 at 1215, For 1 dose, PRE-OP: 15 minutes prior to scheduled surgery time for 1 dose, Pre-Op Given 04/03/2023 11:5 3 AM EDT 1 Drop tropicamide 1%-cyclopentolate 1%-phenylephrine 2.5% ophthalmic solution 1 Drop 1 Drop, Left eye, Q5 MINUTES, First dose on Sun04/03/23 at 1215, Last dose on Sun04/03/23 at 1225, For 3 doses Given 04/03/2023 12:05 PM EDT 1 Drop Given 04/03/2023 12:00 PM EDT 1 Drop Given 04/03/2023 11:53 AM EDT 1 Drop documented in this encounter Active and Recently Administered Medications Times are shown in EDT. Scheduled Medication Order 04/01/2023 04/02/2023 04/03/2023 Diclofenac Sodium (Voltaren) 0.1 % ophthalmic solution 1 Drop (COMPLETED) 1 Drop, Left eye, Q5 MINUTES, First dose on Sun04/03/23 at 1215, Last dose on Sun04/03/23 at 1225, For 3 doses, PRE-OP: One drop to left eye every 5 minutes for 3 doses, Pre-Op 1153 (Given - Provid er: Maricel Gillespie RN)1159 (Given - Provider: Maricel Gillespie RN)1205 (Given - Provider: Maricel Gillespie RN) moxifloxacin (Vigamox) 0.5 % ophthalmic solution 1 Drop (COMPLETED) 1 Drop, Left eye, Q5 MINUTES, First dose on Sun04/03/23 at 1215, Last dose on Sun04/03/23 at 1225, For 3 doses, PRE-OP: One drop to left eye every 5 minutes for 3 doses, Pre-Op 1153 (Given - Provid er: Maricel Gillespie RN)1200 (Given - Provider: Maricel Gillespie RN)1205 (Given - Provider: Maricel Gillespie RN) Povidone-Iodine (Betadine) 5 % 2 mL syringe ophthalmic solution 1 Drop 1 Drop, Left eye, ONCE, On Sun04/03/23 at 1215, For 1 dose, Pre-Op 1215 (Due) proparacaine (Alcaine) 0.5 % ophthalmic solution 1 Drop (COMPLETED) 1 Drop, Left eye, ONCE, On Sun04/03/23 at 1215, For 1 dose, PRE-OP: 15 minutes prior to scheduled surgery time for 1 dose, Pre-Op 1153 (Given - Provid er: Maricel Gillespie RN) tropicamide 1%-cyclopentolate 1%-phenylephrine 2.5% ophthalmic solution 1 Drop (COMPLETED) 1 Drop, Left eye, Q5 MINUTES, First dose on Sun04/03/23 at 1215, Last dose on Sun04/03/23 at 1225, For 3 doses 1153 (Given - Provid er: Maricel Gillespie RN)1200 (Given - Provider: Maricel Gillespie RN)1205 (Given - Provider: Maricel Gillespie RN) Continuous Medication Order 04/01/2023 04/02/2023 04/03/2023 isolyte-S pH 7.4 infusion Intravenous, at 100 mL/hr, Plasma-LYTE 148, isolyte-S, and isolyte-S pH 7.4 are considered equivalent - including for MAR barcode scanning., CONTINUOUS, Starting on Sun04/03/23 at 1215, Until Sun04/03/23 at 1741, Pre-Op 1201 (New Bag - Prov ider: Maricel Gillespie RN)1254 (Continue from Pre-Op - Provider: Karissa Schultz CRNA)1315 (Anes Intra-Op Fluid - Provider: Karissa Schultz CRNA) PRN Medication Order 04/01/2023 04/02/2023 04/03/2023 Acetaminophen (Tylenol) tab 650 mg 650 mg, Oral, PRN Pain, Mild, Starting on Sun04/03/23 at 1328, Until Sun04/03/23 at 1741, For 1 dose, Maximum of 4 grams (4000 mg) per day., Post-op balanced salt solution (Bss) ophthalmic solution (CANCELED) ONCE PRN INTRA PROCEDURE, Starting on Sun04/03/23 at 1307, Until Sun04/03/23 at 1310, Intra-Op 1307 (Given - Provid er: Braulio Friend MD) DUOVISC inj KIT (CANCELED) ONCE PRN INTRA PROCEDURE, Starting on Sun04/03/23 at 1307, Until Sun04/03/23 at 1310, Intra-Op 1307 (Given - Provid er: Braulio Friend MD) hydroxypropyl methylcellulose ([place]cucoat) 2 % intraocular inj (CANCELED) ONCE PRN INTRA PROCEDURE, Starting on Sun04/03/23 at 1307, Until Sun04/03/23 at 1310, Intra-Op 1307 (Given - Provid er: Braulio Friend MD) Lidocaine 1 % (PF) inj (CANCELED) ONCE PRN INTRA PROCEDURE, Starting on Sun04/03/23 at 1308, Until Sun04/03/23 at 1310, Intra-Op 1308 (Given - Provid er: Braulio Friend MD) Moxifloxacin intracameral inj (CANCELED) ONCE PRN INTRA PROCEDURE, Starting on Sun04/03/23 at 1308, Until Sun04/03/23 at 1310, Intra-Op 1308 (Given - Provid er: Braulio Friend MD) Tetracaine (Pontocaine) 0.5 % ophthalmic solution (CANCELED) ONCE PRN INTRA PROCEDURE, Starting on Sun04/03/23 at 1308, Until Sun04/03/23 at 1310, Intra-Op 1308 (Given - Provid er: Ofelia Chun RN) Triamcinolone Acetonide (Triesence) ophth inj (CANCELED) ONCE PRN INTRA PROCEDURE, Starting on Sun04/03/23 at 1308, Until Sun04/03/23 at 1310, Intra-Op 1308 (Given - Provid er: Braulio Friend MD) documented in this encounter Advance Directives Latest Code Status on File Code Status Date Activated Date Inactivated Comments No Code 04/03/2023 11:36 AM 04/03/2023 11:37 AM Thi s order reflects the patients wishes and were consensually agreed upon. Question Answer Comments Discussion of Advance Directives occurred with: Patient Does the patient have a Living Will? No Does the patient have Health Care Power of Wad Compressor Operator Adjuster? No Care Teams Sheet Rock Installation Helper Relationship Specialty Start Date End Date Lewis Dennis MD [address] [place] [address] PCP - General Internal Medicine 03/20/23 documented as of this encounter
--- OUTSIDE RECORDS SUMMARY | 2023-08-05 08:00 | External Medical Summary | Summary of Care ---
Author Name Unknown Organization [facility] Address [address] [place] [address] Phone [phone] Care Team Providers Care Supervisor Hot Dip Plating Name Role Phone [facility] Care Provider Reason for Visit * Auth/Cert Specialty Diagnoses / Procedures Referred By Contjennie t Referred To Contact Diagnoses Combined forms of age-related cataract of right eye Combined forms of age-related cataract of right eye [H25.811] Procedures REMOVE CATARACT, INSERT LENS PROSTH RIGHT EXTRACAPSULAR CATARACT REMOVAL WITH INTRAOCULAR LENS Referral ID Status Reason Start Date Expiration Date Visits Re quested Visits Authorized [id number] Encounter Details Date Type Department Care Team Description 04/17/2023 Hospital Encounter OR [facility], Operating Room [address] [id number] Braulio Friend MD [facility] Dorene Wong [address] [address] Allergies No known active allergiesdocumented as of this encounter (statuses as of 04/18/2023) Medications Medication Sig Dispensed Refills Start Date [...] as of this encounter (statuses as of 04/18/2023) Active Problems Problem Noted Date Blepharochalasis 04/30/2007 ADVANCE DIRECTIVE INFORMATION 06/27/2005 Overview: Yes, Patient instructed to provide copy of advance directive for provider to review and to be scanned into Electronic Medical Record SKIN HYPERTRO-ATROPH NOS 06/27/2005 documented as of this encounter (statuses as of 04/18/2023) Social History Tobacco Use Types Packs/Day Years [...] Sign Reading Time Taken Comments Blood Pressure 126/92 04/17/2023 4:01 PM EDT Pulse 76 04/17/2023 4:01 PM EDT Temperature 36.2 C (97.2 F) 04/17/2023 3:41 PM ED T Respiratory Rate 16 04/17/2023 4:01 PM EDT Oxygen Saturation 100% 04/17/2023 4:01 PM EDT Inhaled Oxygen Concentration - - Weight 52.2 kg (115 lb) 04/17/2023 2:36 PM EDT Height 152.4 cm (5') 04/17/2023 2:36 PM EDT Body Mass Index 22.46 04/17/2023 2:36 PM EDT documented in this encounter Discharge Instructions * Discharge Instr - AVS* Braulio Friend MD - 04/03/2023 1:31 PM EDT Discharge Date: 04/17/23 You may call Doctor Ronna at during [...] school: N/A Follow Up - Return appointment(s): 04/18/23 @12:45 with See your medical insurance verifier in 1day(s). SPECIAL INSTRUCTIONS EYEDROPS for healing [...] DO NOT HESITATE TO CALL US AT [phone] AT ANY TIME I, Braulio Friend MD personally performed the services described in this documentation. All medical record entries made by the scribe were at my direction and in my presence. I have reviewed the chart and agree that the record reflects my personal performance and is accurate and complete. Braulio rodriguez MD. 04/17/2023. 3:39 PM. documented in this encounter H&P Notes * Braulio Friend MD - 04/17/2023 6:41 AM EDT HISTORY & PHYSICAL INTERVAL NOTE [facility] [place] [address] [facility] [id number] History and Physical Update: Name: Shira Mustafa Location: Room/bed info not found Date: 04/17/2023 Time: 6:41 AM DATE OF HISTORY AND PHYSICAL: 03/22/23 BP: 167 mmHg/51 mmHg (04/17/23 1436) Pulse: 81 (04/17/23 1436) Temp: 36.28 C (04/17/23 1436) Resp: 18 (04/17/23 1436) SpO2: 98 % (04/17/23 1436) Does patient take a beta christi? No Did patient stop anticoagulants? No Heart Exam: regular rate and rhythm Lung Exam: clear to auscultation bilaterally Other Pertinent Physical Exam: none This patient has undergone a preprocedural evaluation. A determination has been made to proceed with the planned procedure under [facility] procedural guidelines and the [facility] Non-Emergent, Elective Medical Services and Treatment [...] documented in this encounter Nursing Notes * Pamela Ambrosio RN - 04/17/2023 4:10 PM EDT Patient awake and oriented x3. Denies pain. No drainage from eye noted. Tolerating PO fluids. Discharge instructions given and patient verbalizes understanding. Patient ambulated to private vehicle and discharged to home. * Pamela Ambrosio RN - 04/17/2023 3:41 PM EDT Patient transferred to pacu 2 status post right cataract removal and lens placement. No drainage noted. Patient awake. Denies pain and nausea. Respirations are even and unlabored on room air. Abdomensoft and non distended. Vital signs stable. * Gissel Holcomb RN - 04/17/2023 2:28 PM EDT Surgical consent verified with patient. Patient agrees with listed procedure and verified signature. documented in this encounter Plan of Treatment Health Maintenance Due Date Last Done Comments DXA Scan 1940 Depression Screening, Annual for Pts 12 and Over 1952 DTaP,Tdap,and Td Vaccines (1 - Tdap) 1959 Pneumococcal Vaccine: 65+ Years (1 - PCV) 2005 *ADVANCE DIRECTIVE NOT ON FILE 10/11/2014 Influenza Vaccine (FLU shot) (#1) 2023 06/13/2022, 07/10/2019 Zoster Vaccines Completed 12/19/2021, 07/05/2021, 01/19/2016 COVID-19 Vaccine Completed 07/06/2022, 01/11/2022 GARDASIL-HPV IMMUNIZATION [...] this encounter Medical Devices Implanted Type Area Geropsychologist Device Identifier Shelf Expiration Date Model / Serial / Lot Lens Li61ao 13.00mm 20.00 - [id number] - [id number] Implanted:Qty: 1 on 04/03/2023 by Braulio Friend MD at OR [facility] Left: Eye [employer] 10/24/2027 [id number] / [id number] / [id number] Lens Li61ao 13.00mm 20.00 - [id number] - [id number] Implanted:Qty: 1 on 04/17/2023 by Braulio Friend MD at OR [facility] Right: Eye [employer] 01/22/2028 [id number] / [id number] / [id number] documented as of this encounter Administered Medications Inactive Administered Medications - up to 3 most recent administrations Medication Order MAR Action Action Date Dose Rate Site Diclofenac Sodium (Voltaren) 0.1 % ophthalmic solution 1 Drop 1 Drop, Right eye, Q5 MINUTES, First dose on Sun04/17/23 at 1500, Last dose on Sun04/17/23 at 1510, For 3 doses, PRE-OP: One drop to right eye every 5 minutes for 3 doses, Pre-Op Given 04/17/2023 2:44 PM EDT 1 Drop Given 04/17/2023 2:39 PM EDT 1 Drop Given 04/17/2023 2:33 PM EDT 1 Drop isolyte-S pH 7.4 infusion Intravenous, at 75 mL/hr, Plasma-LYTE 148, isolyte-S, and isolyte-S pH 7.4 are considered equivalent - including for MAR barcode scanning., CONTINUOUS, Starting on Sun04/17/23 at 1500, Until Sun04/17/23 at 2010, Pre-Op Restarted 04/17/2023 3:35 PM EDT Continue from Pre-Op 04/17/2023 3:17 PM EDT 75 mL/hr New Bag 04/17/2023 2:41 PM EDT 75 mL/hr moxifloxacin (Vigamox) 0.5 % ophthalmic solution 1 Drop 1 Drop, Right eye, Q5 MINUTES, First dose on Sun04/17/23 at 1500, Last dose on Sun04/17/23 at 1510, For 3 doses, PRE-OP: One drop to right eye every 5 minutes for 3 doses, Pre-Op Given 04/17/2023 2:4 4 PM EDT 1 Drop Given 04/17/2023 2:39 PM EDT 1 Drop Given 04/17/2023 2:34 PM EDT 1 Drop proparacaine (Alcaine) 0.5 % ophthalmic solution 1 Drop 1 Drop, Right eye, ONCE, On Sun04/17/23 at 1500, For 1 dose, PRE-OP: 15 minutes prior to scheduled surgery time for 1 dose, Pre-Op Given 04/17/2023 2:33 PM EDT 1 Drop tropicamide 1%-cyclopentolate 1%-phenylephrine 2.5% ophthalmic solution 1 Drop 1 Drop, Right eye, Q5 MINUTES, First dose on Sun04/17/23 at 1500, Last dose on Sun04/17/23 at 1510, For 3 doses Given 04/17/2023 2:44 PM EDT 1 Drop Given 04/17/2023 2:39 PM EDT 1 Drop Given 04/17/2023 2:33 PM EDT 1 Drop documented in this encounter Active and Recently Administered Medications Times are shown in EDT. Scheduled Medication Order 04/15/2023 04/16/2023 04/17/2023 Diclofenac Sodium (Voltaren) 0.1 % ophthalmic solution 1 Drop (COMPLETED) 1 Drop, Right eye, Q5 MINUTES, First dose on Sun04/17/23 at 1500, Last dose on Sun04/17/23 at 1510, For 3 doses, PRE-OP: One drop to right eye every 5 minutes for 3 doses, Pre-Op 1433 (Given - Provid er: Gissel Holcomb RN)1439 (Given - Provider: Gissel Holcomb RN)1444 (Given - Provider: Gissel Holcomb RN) moxifloxacin (Vigamox) 0.5 % ophthalmic solution 1 Drop (COMPLETED) 1 Drop, Right eye, Q5 MINUTES, First dose on Sun04/17/23 at 1500, Last dose on Sun04/17/23 at 1510, For 3 doses, PRE-OP: One drop to right eye every 5 minutes for 3 doses, Pre-Op 1434 (Given - Provid er: Gissel Holcomb RN)1439 (Given - Provider: Gissel Holcomb RN)1444 (Given - Provider: Gissel Holcomb RN) Povidone-Iodine (Betadine) 5 % 2 mL syringe ophthalmic solution 1 Drop 1 Drop, Right eye, ONCE, On Sun04/17/23 at 1500, For 1 dose, Pre-Op 1500 (Due) proparacaine (Alcaine) 0.5 % ophthalmic solution 1 Drop (COMPLETED) 1 Drop, Right eye, ONCE, On Sun04/17/23 at 1500, For 1 dose, PRE-OP: 15 minutes prior to scheduled surgery time for 1 dose, Pre-Op 1433 (Given - Provid er: Gissel Holcomb RN) tropicamide 1%-cyclopentolate 1%-phenylephrine 2.5% ophthalmic solution 1 Drop (COMPLETED) 1 Drop, Right eye, Q5 MINUTES, First dose on Sun04/17/23 at 1500, Last dose on Sun04/17/23 at 1510, For 3 doses 1433 (Given - Provid er: Gissel Holcomb RN)1439 (Given - Provider: Gissel Holcomb RN)1444 (Given - Provider: Gissel Holcomb RN) Continuous Medication Order 04/15/2023 04/16/2023 04/17/2023 isolyte-S pH 7.4 infusion Intravenous, at 75 mL/hr, Plasma-LYTE 148, isolyte-S, and isolyte-S pH 7.4 are considered equivalent - including for MAR barcode scanning., CONTINUOUS, Starting on Sun04/17/23 at 1500, Until Sun04/17/23 at 2011, Pre-Op 1441 (New Bag - Prov ider: Gissel Holcomb RN)1517 (Continue from Pre-Op - Provider: Cheryl Contreras CRNA)1534 (Paused - Provider: Cheryl Contreras CRNA - Comment: Switch to gravity)1535 (Restarted - Provider: Cheryl Contreras CRNA) PRN Medication Order 04/15/2023 04/16/2023 04/17/2023 balanced salt solution (Bss) ophthalmic solution (CANCELED) ONCE PRN INTRA PROCEDURE, Starting on Sun04/17/23 at 1530, Until Sun04/17/23 at 1537, Intra-Op 1530 (Given - Provid er: Braulio Friend MD) DUOVISC inj KIT (CANCELED) ONCE PRN INTRA PROCEDURE, Starting on Sun04/17/23 at 1530, Until Sun04/17/23 at 1537, Intra-Op 1530 (Given - Provid er: Braulio Friend MD) hydroxypropyl methylcellulose ([place]) 2 % intraocular inj (CANCELED) ONCE PRN INTRA PROCEDURE, Starting on Sun04/17/23 at 1531, Until Sun04/17/23 at 1537, Intra-Op 1531 (Given - Provid er: Braulio Friend MD) Lidocaine 1 % (PF) inj (CANCELED) ONCE PRN INTRA PROCEDURE, Starting on Sun04/17/23 at 1531, Until Sun04/17/23 at 1537, Intra-Op 1531 (Given - Provid er: Braulio Friend MD) Moxifloxacin intracameral inj (CANCELED) ONCE PRN INTRA PROCEDURE, Starting on Sun04/17/23 at 1531, Until Sun04/17/23 at 1537, Intra-Op 153 (Given - Provid er: Braulio Friend MD) Tetracaine (Pontocaine) 0.5 % ophthalmic solution (CANCELED) ONCE PRN INTRA PROCEDURE, Starting on Sun04/17/23 at 1531, Until Sun04/17/23 at 1537, Intra-Op 153 (Given - Provid er: Lynn Trejo RN) Triamcinolone Acetonide (Triesence) ophth inj (CANCELED) ONCE PRN INTRA PROCEDURE, Starting on Sun04/17/23 at 1531, Until Sun04/17/23 at 1537, Intra-Op 153 (Given - Provid er: Braulio Friend MD) documented in this encounter Advance Directives Latest Code Status on File Code Status Date Activated Date Inactivated Comments No Code 04/17/2023 2:24 PM 04/17/2023 8:11 PM This order reflects the patients wishes and were consensually agreed upon. Question Answer Comments Discussion of Advance Directives occurred with: Patient Does the patient have a Living Will? No Does the patient have Health Care Power of [employer]ou[employer]? No Code Status History Code Status Date Activated Date Inactivated Comments No Code 04/03/2023 11:36 AM 04/03/2023 11:37 AM Thi s order reflects the patients wishes and were consensually agreed upon. Question Answer Comments Discussion of Advance Directives occurred with: Patient Does the patient have a Living Will? No Does the patient have Health Care Power of [employer]ou[employer]? No Care Teams Supervisor Hot Dip Plating Relationship Specialty Start Date End Date Lewis Dennis MD [address] [place] [address] PCP - General Internal Medicine 6/27/23 documented as of this encounter
[2023-08-05] MEDS: POLYETHYLENE (MIRALAX) 17 GM PACK PO SCH (08:14)
[2023-08-05] MEDS: FLUTICASONE/VILANTEROL 200/25MCG 14 PUFFS/INHALER INH SCH (08:15)
[2023-08-05] MEDS: CYANOCOBALAMIN (B-12) 100 MCG TABLET PO SCH (08:15)
[2023-08-05] MEDS: SERTRALINE HCL 100 MG TABLET PO SCH (08:15)
[2023-08-05] MEDS: ATORVASTATIN 10 MG TAB PO SCH (08:15)
[2023-08-05] MEDS: ASPIRIN 81 MG ECTAB PO SCH ×2 (08:15→19:52)
[2023-08-05] MEDS: CHOLECALCIFEROL 1,000 UNITS 25 MCG TAB PO SCH (08:15)
--- NOTE | 2023-08-05 14:14 | Hospitalist Progress Note ---
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 Gonzalez 08/01, EBL 15mL Pain control, bowel regimen Hgb decreased to 9.5 --> was 14 prior to surgery Hgb stable, Ferritin 184. No intervention needed at this time, likely acute blood loss anemia. Hip precautions PT/OT (2) Left bundle branch block (LBBB) on electrocardiogram: Plan: chronic (3) Hyperlipidemia: Plan: continue statin (4) Chronic obstructive pulmonary disease: Plan: no acute issues, no wheezing continue maintenance LABA/ICS and use albuterol prn weaned off O2 (5) Anxiety: Plan: continue lorazepam and Zoloft (6) Depression: Plan: continue sertraline (7) Acute blood loss anemia: Plan: -as above - good ferritin stores, does not need IV iron. Plan DVT proph-ASA, SCDs Dispo- medically stable for discharge, awaiting placement (denied [facility] by insurance) Admission and Anticipated Discharge Date Admission Date: July 31, 2023 Supervising Physician Co-Signing Physician Notes Attending Attestation & Progress Note: Chart reviewed, care plan d/w ELODIA Mclean. I agree w/ the orr components of her documentation. Labs/vitals remain acceptable. Still with constipation - no BM since 07/31. Add senna. If no BM by tomorrow then give dulcolax suppos. Dispo - SNF for rehab. Siva Hpoper MD Subjective 1150 - Patient seen sitting up in the chair. Reports overall feeling well. Worked with PT today and was able to walk more in the room, improved her confidence some. Pain has been well controlled. Has not had a BM but has miralax. Denies CP or SOB Review of Systems Review of Systems: All systems reviewed & are unremarkable except as noted in Subjective Physical Exam Constitutional: WD/WN, vitals as above Respiratory: normal respiratory effort, lungs clear to auscultation Cardiovascular: RRR, no murmur, no edema Gastrointestinal (Abdomen): normal bowel sounds, soft, nontender, no hepatosplenomegaly Musculoskeletal: Extremities: + extremities abnormal to inspection (left hip dressing c/d/i) negative Mayur sign b/l Psychiatric: A+Ox3, euthymic affect Results & Data Results & Data Vital Signs (Past 12 Hours) Vital Signs Temp Pulse Resp BP Pulse Ox O2 Del Method 08/05/23 08:12 36.7 C 81 16 102/58 L 94 Room Air Laboratory Results Laboratory Results - last 24 hr 08/05/23 05:40 WBC 7.38 RBC 2.99 L Hgb 9.4 L Hct 28.9 L MCV 96.7 MCH 31.4 MCHC 32.5 RDW Std Deviation 48.1 H RDW Coeff of Junaid 13.4 Plt Count 209 MPV 9.9 Immature Gran % (Auto) 0.4 Neut % (Auto) 57.0 Lymph % (Auto) 26.7 [place] % (Auto) 12.1 Eos % (Auto) 3.1 Baso % (Auto) 0.7 Neut # (Auto) 4.21 Lymph # (Auto) 1.97 [place] # (Auto) 0.89 H Eos # (Auto) 0.23 Baso # (Auto) 0.05 Immature Gran # (Auto) 0.03 Ferritin 184.2 PG Care Time/CCT Total # of Minutes Spent Total Time Spent with Patient: Total time spent is greater than 50% in coordination of care (as documented) at patient's floor/unit and/or counseling patient: Coding Level of Care Code 64508 SUB INP/OBS CARE 10/18MIN Diagnoses Closed left hip fracture S72.002A Encounter type: initial encounter Left bundle branch block (LBBB) on electrocardiogram I44.7 Hyperlipidemia E78.5 Chronic obstructive pulmonary disease J44.9 Anxiety F41.9 Depression F32.9 Acute blood loss anemia D62 (1) Closed left hip fracture Encounter type: initial encounter Qualified Code(s): S72.002A - Fracture of unspecified part of neck of left femur, initial encounter for closed fracture
[2023-08-06] MEDS: SENNA 8.6 MG TAB PO SCH (07:54)
[2023-08-06] MEDS: SERTRALINE HCL 100 MG TABLET PO SCH (07:54)
[2023-08-06] MEDS: CYANOCOBALAMIN (B-12) 100 MCG TABLET PO SCH (07:54)
[2023-08-06] MEDS: ATORVASTATIN 10 MG TAB PO SCH (07:55)
[2023-08-06] MEDS: ASPIRIN 81 MG ECTAB PO SCH ×2 (07:55→20:14)
[2023-08-06] MEDS: FLUTICASONE/VILANTEROL 200/25MCG 14 PUFFS/INHALER INH SCH (07:55)
[2023-08-06] MEDS: CHOLECALCIFEROL 1,000 UNITS 25 MCG TAB PO SCH (07:55)
[2023-08-06] MEDS: POLYETHYLENE (MIRALAX) 17 GM PACK PO SCH (07:57)
[2023-08-06] MEDS ORDERED: bisacodyL 10 MG SUPP PR ONE (09:00)
[2023-08-06] MEDS: oxyCODONE HCL IR 5 MG TAB (IMMEDIATE RELEASE) PO PRN ×2 (09:08→17:03)
--- NOTE | 2023-08-06 18:00 | Hospitalist Progress Note ---
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 Gonzalez (08/01/23) Hip precautions PT/OT Pain meds prn DVT proph - asa 81mg BID 25-OH vit D level 11/2022 wnl; all vitamin D levels dating back to 2018 have been wnl defer recheck LLE edema likely 2nd to fracture itself as well as edema post-op Doubt DVT of LLE but continue serial exams (2) Left bundle branch block (LBBB) on electrocardiogram: Plan: chronic no ischemic symptoms EF 55-60% with no regional WMAs -- echo 2021 no Rx needed (3) Hyperlipidemia: Plan: continue statin (4) Chronic obstructive pulmonary disease: Plan: without exacerbation continue maintenance LABA/ICS and albuterol prn weaned off O2 several days ago o2 sats at rest in room air are low-normal follow carefully (5) Anxiety: Plan: continue lorazepam and sertraline (6) Depression: Plan: continue sertraline (7) Acute blood loss anemia: Plan: most recent Hb 9.4 about 4.5 to 5 gram drop in Hb post-op despite such she remains hemodynamically stable defer on oral Fe therapy until constipation has resolved recheck cbc am for stability (8) Constipation: Plan: senna + miralax dulcolax suppos x 1 - but she declined it today if no BM by tomorrow she is willing to use the dulcolax Plan DVT proph- aspirin 81mg BID x 6 weeks Dispo- denied [facility] by insurance - [facility] to peer unsuccessful awaiting SNF for rehab Admission and Anticipated Discharge Date Admission Date: July 31, 2023 Subjective patient with NO bowel movement since admission declined the dulcolax suppos today she denies any abdominal symptoms tolerating diet mild L hip pain only hoping to go to [facility] rehab no new complaints Review of Systems Review of Systems: cv - no chest pain pulm - no dyspnea at rest; mild CARTWRIGHT (2nd COPD) GI - no abd pain or N/V despite constipation Physical Exam Physical Exam: gen - thin, NAD mouth - MMM neck - no JVD heart - RRR, s1 s2 lungs - CTA B/l abd - mildly distended, BS+, NT, no HSM ext - left leg is larger than right leg due to generalized edema of LLE; hip dressings intact L hip; negative jeffry's sign; no palpable cord; no warmth psych - a/o x 3 Results & Data Results & Data Vital Signs (Past 12 Hours) Vital Signs Temp Pulse Resp BP Pulse Ox O2 Del Method 08/06/23 15:31 36.3 C L 69 20 139/77 95 Room Air 08/06/23 07:28 36.3 C L 71 14 154/80 H 92 Room Air PG Care Time/CCT Total # of Minutes Spent Total Time Spent with Patient: Total time spent is greater than 50% in coordination of care (as documented) at patient's floor/unit and/or counseling patient: Coding Level of Care Code 64757 SUB INP/OBS CARE 10/18MIN Diagnoses Closed left hip fracture S72.002A Encounter type: initial encounter Left bundle branch block (LBBB) on electrocardiogram I44.7 Hyperlipidemia E78.5 Chronic obstructive pulmonary disease J44.9 Anxiety F41.9 Depression F32.9 Acute blood loss anemia D62 Constipation K59.00 (1) Closed left hip fracture Encounter type: initial encounter Qualified Code(s): S72.002A - Fracture of unspecified part of neck of left femur, initial encounter for closed fracture
[2023-08-07 06:50] LABS: Hemoglobin 9.6 g/dl (12.0-16.0); Mean Corpuscular Hemoglobin 31.8 pg (25.0-34.0); Mean Corpuscular Hgb Conc 33.1 g/dL (32.0-36.0); Mean Platelet Volume 9.7 fL (9.4-12.4); Platelet Count 269 K/uL (130-400); RDW Coefficient of Variation 13.3 % (11.5-14.5); RDW Standard Deviation 46.9 fL (36.4-46.3); Red Blood Count 3.02 M/uL (4.20-5.40); White Blood Count 7.79 K/ul (4.8-10.8)
[2023-08-07 07:10] LABS: BUN Creatinine Ratio 29.8 (10-20); Calcium 8.4 mg/dl (8.6-10.3); Creatinine Clr Calc Pharmacy 54.7 ml/min; Est GFR (African American) 100.1 ml/min; Est GFR (Non-African American) 86.3 ml/min; Potassium 3.9 mmol/L (3.5-5.1)
[2023-08-07] MEDS: CHOLECALCIFEROL 1,000 UNITS 25 MCG TAB PO SCH (07:27)
[2023-08-07] MEDS: POLYETHYLENE (MIRALAX) 17 GM PACK PO SCH (07:27)
[2023-08-07] MEDS: FLUTICASONE/VILANTEROL 200/25MCG 14 PUFFS/INHALER INH SCH (07:27)
[2023-08-07] MEDS: ASPIRIN 81 MG ECTAB PO SCH ×2 (07:27→20:55)
[2023-08-07] MEDS: SERTRALINE HCL 100 MG TABLET PO SCH (07:27)
[2023-08-07] MEDS: CYANOCOBALAMIN (B-12) 100 MCG TABLET PO SCH (07:27)
[2023-08-07] MEDS: ATORVASTATIN 10 MG TAB PO SCH (07:27)
[2023-08-07] MEDS: SENNA 8.6 MG TAB PO SCH (07:27)
[2023-08-07] MEDS: oxyCODONE HCL IR 5 MG TAB (IMMEDIATE RELEASE) PO PRN ×2 (11:18→18:45)
--- NOTE | 2023-08-07 18:16 | Hospitalist Progress Note ---
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 Gonzalez (08/01/23) Hip precautions PT/OT Pain meds prn DVT proph - asa 81mg BID 25-OH vit D level 11/2022 wnl; all vitamin D levels dating back to 2018 have been wnl defer recheck LLE edema likely 2nd to fracture itself as well as edema post-op -improving (2) Left bundle branch block (LBBB) on electrocardiogram: Plan: chronic no ischemic symptoms EF 55-60% with no regional WMAs -- echo 2021 no Rx needed (3) Hyperlipidemia: Plan: continue statin (4) Chronic obstructive pulmonary disease: Plan: without exacerbation continue maintenance LABA/ICS and albuterol prn weaned off O2 several days ago o2 sats at rest in room air are low-normal follow carefully (5) Anxiety: Plan: continue lorazepam and sertraline (6) Depression: Plan: continue sertraline (7) Acute blood loss anemia: Plan: most recent Hb 9.4 about 4.5 to 5 gram drop in Hb post-op despite such she remains hemodynamically stable defer on oral Fe therapy until constipation has resolved recheck cbc am for stability = hemoglobin improved to 9.6 which is adequate (8) Constipation: Plan: senna + miralax -Had BM today Plan DVT proph- aspirin 81mg BID x 6 weeks SNF for rehab tomorrow Admission and Anticipated Discharge Date Admission Date: July 31, 2023 Subjective Doing well, no L hip pain at rest, tolerable pain with ambulation controlled with current meds, no SOB or CP, eating well had BM Physical Exam 2 Physical Exam: PHYSICAL EXAMINATION Last 24h vital signs reviewed, see documentation in flowsheet General: comfortable appearing, no distress, sitting in chair by the window HEENT: Normocephalic, atraumatic, pupils round and equal, sclerae anicteric, no conjunctival injection, moist mucus membranes Lungs: Normal respiratory effort. Clear to auscultation bilaterally. No RRW Heart: Regular rate and rhythm, no murmurs. No JVD Abdomen: Soft, nontender, nondistended. Bowel sounds present. Extremities: Warm, dry, well-perfused. No extremity edema. Left hip incision dressed clean dry and intact minimal swelling, minimal left lower extremity edema Neuro: Alert and oriented x 4, face symmetric, moves 4 extremities well Psych: Normal affect and behavior Results & Data Results & Data Vital Signs (Past 12 Hours) Vital Signs Temp Pulse Resp BP Pulse Ox O2 Del Method 08/07/23 08:00 Room Air 08/07/23 07:35 36.6 C 74 16 134/71 94 Room Air Laboratory Results 08/07/23 06:09 08/07/23 06:09 PG Care Time/CCT Total # of Minutes Spent Total Time Spent with Patient: Total time spent is greater than 50% in coordination of care (as documented) at patient's floor/unit and/or counseling patient: Coding Level of Care Code 80181 SUB INP/OBS CARE 235MIN Diagnoses Closed left hip fracture S72.002A Encounter type: initial encounter Left bundle branch block (LBBB) on electrocardiogram I44.7 Hyperlipidemia E78.5 Chronic obstructive pulmonary disease J44.9 Anxiety F41.9 Depression F32.9 Acute blood loss anemia D62 Constipation K59.00 (1) Closed left hip fracture Encounter type: initial encounter Qualified Code(s): S72.002A - Fracture of unspecified part of neck of left femur, initial encounter for closed fracture
[2023-08-08] MEDS: oxyCODONE HCL IR 5 MG TAB (IMMEDIATE RELEASE) PO PRN ×2 (05:50→11:38)
[2023-08-08] MEDS: POLYETHYLENE (MIRALAX) 17 GM PACK PO SCH (08:30)
[2023-08-08] MEDS: FLUTICASONE/VILANTEROL 200/25MCG 14 PUFFS/INHALER INH SCH (08:30)
[2023-08-08] MEDS: SENNA 8.6 MG TAB PO SCH (08:30)
[2023-08-08] MEDS: ASPIRIN 81 MG ECTAB PO SCH (08:31)
[2023-08-08] MEDS: SERTRALINE HCL 100 MG TABLET PO SCH (09:40)
[2023-08-08] MEDS: CYANOCOBALAMIN (B-12) 100 MCG TABLET PO SCH (09:41)
[2023-08-08] MEDS: ATORVASTATIN 10 MG TAB PO SCH (09:41)
[2023-08-08] MEDS: CHOLECALCIFEROL 1,000 UNITS 25 MCG TAB PO SCH (09:41)
--- NOTE | 2023-08-08 11:53 | Discharge Summary ---
Date of Service August 08, 2023 Admission HPI Per Admitting Provider The patient is a 82-year-old female with a past medical history including left bundle branch block, chronic dyspnea on exertion, anxiety, depression, SNHL, COPD, abnormal serum protein electrophoresis, and hyperlipidemia. She presents to the emergency department after a mechanical fall as she was walking up steps going to a local restaurant. She landed on her left hip, developed immediate pain and inability to bear weight. X-rays in the emergency department revealed a closed left hip fracture Principal Diagnosis Left intratrochanteric hip fracture Discharge Exam PHYSICAL EXAMINATION Last 24h vital signs reviewed, see documentation in flowsheet General: sitting in chair in street clothes, looks comfortable HEENT: Normocephalic, atraumatic, pupils round and equal, sclerae anicteric, no conjunctival injection, moist mucus membranes Lungs: Normal respiratory effort. Heart: deferred Abdomen: Soft, nondistended. Extremities: Warm, dry, well-perfused. Left hip incision dressed clean dry and intact, mild left lower extremity edema without erythema or calf tenderness, no RLE edema Neuro: Alert and oriented x 4, face symmetric, moves 4 extremities well Psych: Normal affect and behavior Discharge Data Allergies Allergy/AdvReac Type Severity Reaction Status Date / Time alendronate sodium Allergy Severe WEAKNESS Verified 07/31/23 20:08 HANDS hydroxyzine AdvReac Mild Verified 07/31/23 20:08 drowsiness/ fogginess Consultations 07/31/23 19:53 Consult Orthopedic Surgery Routine 07/31/23 19:54 ED Decision to Admit Stat 07/31/23 22:38 Consult Orthopedic Surgery Routine Procedures Performed Operation Date: 08/01/23 07:00 Actual Procedures p Left Short Trochanteric Nail(Left) - Kanu Gonzalez DO Ordered Studies 08/01/23 FL hip LT 2-3V Routine Femur X-Ray 07/31/23 18:57 SINGLE VIEW PELVIS; 2 VIEWS LEFT FEMUR CLINICAL HISTORY: Fall. Left leg injury. FINDINGS: AP views of the pelvis with AP and crosstable lateral views of the left femur are obtained. Correlation is made with pelvic CT dated 12/11/2016. The skeletal structures are osteopenic. There is no radiographic evidence of acute fracture involving the right hip or the bony pelvis. There is an angulated intertrochanteric fracture of the left femur with overlying soft tissue edema. The distal left femur appears intact. Mild arthritic change and joint space narrowing is seen in the hips. There is degenerative sclerosis of the sacroiliac joints. Lumbosacral spondylosis is partially visualized. The left knee joint is grossly maintained. Suture material and phleboliths are noted in the pelvis. IMPRESSION: 1. Intertrochanteric fracture of the left proximal femur as above. 2. No additional fracture is seen involving the right hip or bony pelvis. Electronically signed by: Kalia Serrano M.D. 07/31/2023 9:39 PM Pelvis X-Ray 07/31/23 18:57 SINGLE VIEW PELVIS; 2 VIEWS LEFT FEMUR CLINICAL HISTORY: Fall. Left leg injury. FINDINGS: AP views of the pelvis with AP and crosstable lateral views of the left femur are obtained. Correlation is made with pelvic CT dated 12/11/2016. The skeletal structures are osteopenic. There is no radiographic evidence of acute fracture involving the right hip or the bony pelvis. There is an angulated intertrochanteric fracture of the left femur with overlying soft tissue edema. The distal left femur appears intact. Mild arthritic change and joint space narrowing is seen in the hips. There is degenerative sclerosis of the sacroiliac joints. Lumbosacral spondylosis is partially visualized. The left knee joint is grossly maintained. Suture material and phleboliths are noted in the pelvis. IMPRESSION: 1. Intertrochanteric fracture of the left proximal femur as above. 2. No additional fracture is seen involving the right hip or bony pelvis. Electronically signed by: Kalia Serrano M.D. 07/31/2023 9:39 PM Hip X-Ray 08/01/23 00:00 FL hip LT 2-3V CLINICAL HISTORY: LEFT TROCH acute fracture of the left hip COMPARISON STUDY: 07/31/2023 FLUOROSCOPY TIME: 46.3 seconds FLUOROSCOPY IMAGES: 4 EXPOSURE DOSE: 6.72 mGy FINDINGS: Status post placement of an intertrochanteric nail with medullary kyra fixating the acute intertrochanteric left femoral fracture. There is improved alignment with mild persistent cortical offset. Expected postoperative soft tissue swelling with deep tissue air. IMPRESSION: Fluoroscopic assistance as above. ACT 112: Negative or not required by law. Electronically signed by: Kd Arora M.D. 08/01/2023 12:58 PM Hip/Pelvis X-Ray 08/01/23 14:03 XR hip LT 2V w pelvis HISTORY: 82 years-old Female Postoperative acute fracture of the left hip COMPARISON: 07/31/2023 TECHNIQUE: AP view of the pelvis with 2 views of the left hip FINDINGS: Acute intertrochanteric left femoral fracture redemonstrated. Status post placement of an intertrochanteric nail with medullary kyra. There is improved alignment of the fracture. Mild osteoarthritis of the hips. Expected postoperative soft tissue swelling with deep tissue air. IMPRESSION: Improved alignment of the acute left femoral fracture status post ORIF. ACT 112: Negative or not required by law. The above report was generated using voice recognition software. It may contain grammatical, syntax or spelling errors. Electronically signed by: Kd Arora M.D. 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 Gonzalez (08/01/23) Weighbearing as tolerated PT/OT Pain meds prn acetaminophen and infrequent oxycodone 5 mg DVT proph - asa 81mg BID 25-OH vit D level 11/2022 wnl; all vitamin D levels dating back to 2018 have been wnl defer recheck LLE edema likely 2nd to fracture itself as well as edema post-op - increased a little today likely related to increased mobility out of bed more [place] may be removed in 2 weeks at SNF or at ortho visit Follow up with ortho in 2-3 weeks (2) Left bundle branch block (LBBB) on electrocardiogram: chronic no ischemic symptoms EF 55-60% with no regional WMAs -- echo 2021 no Rx needed (3) Hyperlipidemia: continue statin (4) Chronic obstructive pulmonary disease: without exacerbation continue maintenance LABA/ICS and albuterol prn weaned off O2 several days ago (5) Anxiety: continue lorazepam and sertraline (6) Depression: continue sertraline (7) Acute blood loss anemia: most recent Hb 9.4 about 4.5 to 5 gram drop in Hb post-op, remained stable through CBC 08/07 despite such she remains hemodynamically stable defer on oral Fe therapy until constipation has resolved - maybe start oral iron in 3-5 days (8) Constipation: senna + miralax -Had BM finally 08/07 Plan DVT proph- aspirin 81mg BID x 6 weeks SNF for rehab Total Time Total Time Spent Total Time Spent (In Minutes): 40 minutes coordinating care for discharge Discharge Plan Discharge Items Patient Disposition: Transfer [facility] Reason For Visit: CLOSED LEFT HIP FRACTURE Discharge Diagnosis: Left hip fracture Activity: As commented below Activity Comment: PT and OT eval and treat. Full Weightbearing. Weightbearing Comment: Full Non-emergency contact: Primary Care Provider and Surgeon Call non-emergency contact if: you have any medication questions, your pain is worsening, you have a fever and your wound has increased drainage Follow-up/Referrals: Lewis Dow MD [Primary Care Provider] - Kanu Gonzalez DO [Surgeon] - (in 2-3 weeks) [facility] at [facility] [Non-Staff] - Diet: Regular Addtl Attending Provider Instructions: Left hip fracture repaired Weightbearing as tolerated / full weightbearing May remove rock in 2 weeks Change dressing as needed Follow up with ortho Dr. Gonzalez in 2-3 weeks DVT prophylaxis with bid aspirin Pending Studies at Discharge: No Stand-Alone Forms: My [facility] Skilled Items Patient informed of condition?: Yes DNR: No Discharge Level of Care: Skilled Communicable Disease: No Discharge Prognosis: Improving Lines: None Urinary Catheter: No Medications and DC Order Prescriptions: New lorazepam 0.5 mg Tablet 0.5 mg PO DAILY PRN (Reason: anxiety) Qty: 10 0RF acetaminophen 325 mg Tablet 650 mg PO Q4H PRNQty: 0 0RF aspirin 81 mg Tablet,Delayed Release (Dr/Ec) 81 mg PO BID Qty: 0 0RF oxycodone 5 mg Tablet 5 mg PO Q4H PRN (Reason: pain) Qty: 10 0RF bisacodyl 10 mg Suppository 10 mg GA DAILY PRNQty: 0 0RF polyethylene glycol 3350 [Miralax] 17 gram Powder In Packet 17 g PO DAILY Qty: 0 0RF sennosides [Senokot] 8.6 mg Tablet 17.2 mg PO QAM Qty: 0 0RF Continued atorvastatin 10 mg tablet 10 mg PO DAILY Qty: 90 3RF fluticasone propion-salmeterol [Advair Diskus] 500-50 mcg/dose blister with device 1 inh INHALATION Q12H Qty: 60 3RF sertraline 100 mg tablet 100 mg PO DAILY Qty: 90 3RF oxybutynin chloride 5 mg tablet extended release 24hr 5 mg PO DAILY Qty: 90 1RF cholecalciferol (vitamin D3) 25 mcg (1,000 unit) capsule 25 mcg PO DAILY ascorbic acid (vitamin C) 1,000 mg capsule 1 g PO DAILY albuterol sulfate [ProAir HFA] 90 mcg/actuation HFA aerosol inhaler 1 puff INH Q4H PRN (Reason: sob) Qty: 18 5RF cyanocobalamin (vitamin B-12) 100 mcg Tablet 100 mcg PO QAM Discontinued lorazepam 0.5 mg tablet 0.5 mg PO DAILY PRN (Reason: Anxiety) Discharge Orders: Discharge Order (Routine); Ordered 08/08/23 Ordered By: Dilcia Srivastava Admission Data Admit Date/Time: 07/31/23 21:08 Attending Provider: Dilcia Srivastava Admit Provider: You Purcell Primary Care Provider: Lewis Dow V. Other Providers: Kanu Gonzalez; You Purcell; Bernard Bridges [facility] Other Interventions: Discharge Summary Assessment (RN) Last Done: 08/08/23 11:12 Coding Level of Care Code 21608 INP/OBS DISCH >30 MIN Diagnoses Closed left hip fracture S72.002A Encounter type: initial encounter Left bundle branch block (LBBB) on electrocardiogram I44.7 Hyperlipidemia E78.5 Chronic obstructive pulmonary disease J44.9 Anxiety F41.9 Depression F32.9 Acute blood loss anemia D62 Constipation K59.00
== END 2023-08-08 12:10 | DRG 481 ==
LOC: ED 18:37 → SUATTDRO 21:08 → 3E 21:08